=== PATIENT | male | born 1935 | race Caucasian/White ===

== ENCOUNTER 2017-12-22 02:10 | Emergency (ER) | payer OTHER ==
--- OUTSIDE RECORDS SUMMARY | 2017-12-22 02:11 | XMS REPORT | Continuity of Care Document ---
:1935 Author Organization Interface Problems Problem Status Onset Date Classification Date Comments Source Reported Medications Medication Details Route Status Patient Ordering Order Source Instructions Provider Date Allergies, Adverse Reactions, Alerts Substance Category Reaction Severity Reaction Status Date Comments Source type Reported Immunizations Immunization Date Given Site Status Last Updated Comments Source Results Order Results Value Reference Date Interpretation Comments Source Name Range Vital Signs Vital Sign Value Date Comments Source Encounters Location Location Encounter Encounter Reason Attending ADM DC Status Source Details Type Number For Provider Date Date Visit Outpatient [id number] [facility] 11/[address] Outpatient [id number] [facility] 12/19 [place] [address] [place] Procedures Procedure Code Date Perfomer Comments Source
[2017-12-22] MEDS ORDERED: PIPER/TAZO/NS 3.375gm 3.375 GM/100 ML BAG ONE (02:31)
[2017-12-22] MEDS ORDERED: NA CHLORIDE 0.9% 1,000 ML ONE ×2 (02:31→07:05)
[2017-12-22 02:32] LABS: Arterial Blood Carboxyhemoglob 1.2 % (0-1.5); Blood Gas Oxyhemoglobin 90.7 % (94-97); Blood O2 Saturation 92.7 % (92-98.5)
[2017-12-22 02:36] LABS: Urine Blood TRACE (NEG); Urine Glucose NEGATIVE (NEG); Urine Protein 1+ (NEG)
[2017-12-22 02:43] LABS: Absolute Lymphocytes (CBC) 0.7 K/uL (0.7-4.9); Absolute Monocytes 0.2 K/uL (0.1-1.3); Absolute Neutrophil 3.8 K/uL (1.8-8.0); Basophils % 0.3 % (0-1.3); Hematocrit 36.8 % (39.6-49.0); Lymphocytes % 14.4 % (15.3-44.8); MCH 33.6 pg (27.0-35.0); MCV 93.4 fL (80-100); MPV 9.7 fL (7.6-11.3); Monocytes % 3.7 % (3.3-12.3); RBC Red Blood Cell Count 3.94 M/uL (4.33-5.43)
[2017-12-22 03:00] LABS: Protime INR 1.31
[2017-12-22 03:05] LABS: Albumin 2.6 g/dL (3.4-5.0); Bilirubin Direct 0.4 mg/dL (0-0.2); Potassium 3.6 mmol/L (3.5-5.1); Protein, Total 5.8 g/dL (6.4-8.2); Troponin (Emerg Dept Use Only) 0.07 ng/mL (0.0-0.045)
[2017-12-22 03:20] LABS: Blood Morphology Comment NOT SEEN (NOT SEEN); Platelet Estimate DECR; Urine White Blood Cell Casts OK
[2017-12-22] MEDS ORDERED: NA CHLORIDE 0.9% 500 ML ONE (03:21)
--- NOTE | 2017-12-22 06:36 | ER ---
Nurse's Notes [facility] Name: Xu Fulton Age: 82 yrs Sex: Male : 1935 Arrival Date: 12/22/2017 Time: 02:10 Bed 2 Private MD: Diagnosis: Severe sepsis without septic shock Presentation: 12/22 02:19 Presenting complaint: EMS states: Called out for fever and chills. Pt was lethargic and tl2 confused. Pt was hypotensive and had temperature of 106 axillary. Given 1 gram Tylenol and Liter of NS en route. Pt received stem cell injections in his neck on Sunday and started to feel sick on . Transition of care: patient was not received from another setting of care. Onset of symptoms was December 20, 2017. Risk Assessment: Do you want to hurt yourself or someone else? Patient reports no desire to harm self or others. Initial Sepsis Screen: Does the patient meet any 2 criteria? Yes Does the patient have a suspected source of infection? No. Patient's initial sepsis screen is negative. Care prior to arrival: Medication(s) given: Normal saline infusion, 1000 mL, Tylenol, 1000 mg, IV initiated. 18 GA, in the right antecubital area. 02:19 Method Of Arrival: EMS: [facility] tl2 02:19 Acuity: TEO 2 tl2 Triage Assessment: 02:24 General: Appears uncomfortable, Behavior is agitated, restless. Pain: Denies pain. tl2 Neuro: Level of Consciousness is awake, confused, lethargic, Oriented to person. Cardiovascular: Rhythm is sinus tachycardia. Respiratory: Airway is patent Respiratory effort is even, unlabored, Respiratory pattern is regular, symmetrical, Breath sounds are clear bilaterally. GI: No signs and/or symptoms were reported involving the gastrointestinal system. : Urine is clear, matt colored. Derm: Skin is clammy, Skin is normal, Skin temperature is hot. Historical: - Allergies: 02:24 Unable to obtain; tl2 - Home Meds: 02:24 aspirin 81 mg Oral TbEC 1 tab once daily [Active]; tamsulosin 0.4 mg Oral cp24 1 cap tl2 once daily [Active]; Tylenol #3 Oral [Active]; Methylprednisolone Oral [Active]; tizanidine oral oral [Active]; - PMHx: 02:24 BPH; GERD; Myocardial infarction; tl2 - Immunization history:: Adult Immunizations up to date. - Social history:: Smoking status: unknown. - Ebola Screening: : No symptoms or risks identified at this time. Screenin:28 Abuse screen: Denies threats or abuse. Nutritional screening: No deficits noted. tl2 Tuberculosis screening: No symptoms or risk factors identified. Fall Risk IV access (20 points). Gait- Weak (10 pts.). Mental Status- Overestimates/Forgets Limitations (15 pts.). Assessment: 02:52 General: see triage assessment. tl2 03:13 Reassessment: Patient appears in no apparent distress at this time. Patient and/or tl2 family updated on plan of care and expected duration. Pain level reassessed. Pt is becoming more alert. at bedside. Neuro: Level of Consciousness is awake, alert, Oriented to person, place, time, Speech is normal. 03:59 Reassessment: Patient appears in no apparent distress at this time. Patient and/or tl2 family updated on plan of care and expected duration. Pain level reassessed. Patient is alert, oriented x 3, equal unlabored respirations, skin warm/dry/pink. Pt out to CT Patient states feeling better. 07:12 Reassessment: Attempted to call report to receiving nurse but was told to wait until tl2 after shift change. 07:22 General: Appears in no apparent distress. comfortable, Behavior is calm, cooperative, ch appropriate for age. Pain: Denies pain. Neuro: Level of Consciousness is awake, alert, obeys commands, Oriented to person, place, time, situation, Anhydrous Ammonia Production Supervisor are equal bilaterally Moves all extremities. Speech is normal, Facial symmetry appears normal, Facial symmetry: tongue is midline, Pupils are PERRLA. Cardiovascular: Denies chest pain, shortness of breath, Rhythm is sinus rhythm. Respiratory: Airway is patent Respiratory effort is even, unlabored, Breath sounds are clear bilaterally. GI: No signs and/or symptoms were reported involving the gastrointestinal system. Abdomen is round non-distended, Bowel sounds present X 4 quads. Abd is soft and non tender X 4 quads. Derm: Skin is pink, warm \T\ dry. 07:22 Reassessment: attempting to call report now. 08:17 Reassessment: Patient appears in no apparent distress at this time. Patient and/or ch family updated on plan of care and expected duration. Pain level reassessed. Patient is alert, oriented x 3, equal unlabored respirations, skin warm/dry/pink. report given at 0735. EMS contacted at 0740. Still awaiting EMS arrival for pt transport. pt and family updated, no s/s of distress. 09:15 Reassessment: Patient appears in no apparent distress at this time. No changes from ch previously documented assessment. Patient and/or family updated on plan of care and expected duration. Pain level reassessed. Patient is alert, oriented x 3, equal unlabored respirations, skin warm/dry/pink. Vital Signs: 02:24 BP 109 / 51; Pulse 111; Resp 22; Temp 104.8(C); Pulse Ox 93% on 2 lpm NC; Weight 77.11 tl2 kg; Height 5 ft. 7 in. (170.18 cm); 03:13 BP 126 / 55; Pulse 91; Resp 24; Temp 102.3(C); Pulse Ox 97% on 2 lpm NC; tl2 03:37 BP 117 / 50; Pulse 84; Resp 23; Temp 102.1(C); Pulse Ox 97% on 2 lpm NC; tl2 03:58 BP 112 / 49; Pulse 88; Resp 22; Temp 101.9; Pulse Ox 97% on 2 lpm NC; tl2 04:39 BP 104 / 54; Pulse 88; Resp 17; Temp 100.5(C); Pulse Ox 95% on 2 lpm NC; tl2 05:28 BP 102 / 59; Pulse 86; Resp 19; Temp 99.7(C); Pulse Ox 96% on 2 lpm NC; tl2 06:35 BP 107 / 58; Pulse 90; Resp 17; Temp 98.9(C); Pulse Ox 97% on 2 lpm NC; tl2 07:22 BP 126 / 61; Pulse 80; Resp 18; Temp 98.8; Pulse Ox 96% on R/A; Pain 0/10; ch 08:17 BP 110 / 56; Pulse 78; Resp 18; Temp 98.8; Pulse Ox 100% on R/A; Pain 0/10; ch 09:15 BP 116 / 62; Pulse 90; Resp 16; Temp 98.5; Pulse Ox 99% on R/A; Pain 0/10; ch 02:24 Body Mass Index 26.63 (77.11 kg, 170.18 cm) tl2 ED Course: 02:10 Patient arrived in ED. ds1 02:17 Gerardo Ramirez MD is Attending Physician. gs 02:21 Triage completed. tl2 02:24 Arm band placed on right wrist. tl2 02:28 Patient has correct armband on for positive identification. Placed in gown. Bed in low tl2 position. Call light in reach. Side rails up X2. 02:28 Roberto cath inserted, using sterile technique, 16 Fr., by ED staff, balloon inflated, to tl2 gravity drainage, urine specimen collected. returned matt urine. Patient tolerated well. Maintain EMS IV. Dressing intact. Good blood return noted. Site clean \T\ dry. Gauge \T\ site: 18 g R AC. Inserted saline lock: 18 gauge in right forearm, using aseptic technique. Blood collected. Oxygen administration via nasal cannula \T\ 2L/min. Thermoregulation: cooling blanket applied. 02:[address] via stretcher. kw1 02:42 X-ray completed. Portable x-ray completed in exam room. Patient tolerated procedure bb2 well. 02:43 Chest Single View XRAY In Process Unspecified. EDMS 02:52 Azul Nation RN is Primary Nurse. tl2 03:09 CT completed. Patient tolerated procedure well. Patient moved back from CT. kw1 03:12 CT Head Brain wo Cont In Process Unspecified. EDMS 03:14 Notified ED physician of a critical lab result(s). lactate 3.1. fc 04:[address] via stretcher. kw1 04:39 CT Chest Wo Con In Process Unspecified. EDMS 04:39 CT completed. Patient tolerated procedure well. Patient moved back from CT. kw1 04:39 Flu Sent. tl2 06:54 Primary Nurse role handed off by Azul Nation, OVIDIO ch 06:54 Ramonita Nation, OVIDIO is Primary Nurse. ch 07:12 Report given to OVIDIO Shipman. tl2 07:22 No apparent distress. Resting quietly. ch 07:22 monitoring specialist on. Pulse ox on. NIBP on. Pillow given. ch 07:22 No provider procedures requiring assistance completed. Patient transferred, IV remains ch in place. Administered Medications: 02:31 Drug: NS 0.9% 1000 ml Route: IV; Rate: 1 bolus; Site: right forearm; tl2 03:58 Follow up: IV Status: Completed infusion; IV Intake: 1000ml tl2 02:31 Drug: Zosyn 3.375 grams Route: IVPB; Infused Over: 60 mins; Site: right forearm; tl2 03:58 Follow up: IV Status: Completed infusion tl2 03:21 Drug: NS 0.9% 500 ml Route: IV; Rate: bolus; Site: right antecubital; tl2 03:58 Follow up: IV Status: Completed infusion; IV Intake: 500ml tl2 07:10 Drug: vancoMYCIN 1 grams Route: IVPB; Infused Over: 2 hrs; Site: right forearm; 07:26 Follow up: IV Status: Infusion continued upon transfer 07:10 Drug: NS 0.9% 1000 ml Route: IV; Rate: 125 ml/hr; Site: right antecubital; 07:26 Follow up: IV Status: Infusion continued upon transfer Point of Care Testing: Blood Glucose: 02:46 Blood Glucose: 123 mg/dL; oe Ranges: Intake: 03:58 IV: 500ml; Total: 500ml. tl2 03:58 IV: 1000ml; Total: 1500ml. tl2 Outcome: 06:35 ER care complete, transfer ordered by . 09:15 Transferred by ground EMS to [facility], Transfer form completed. X-rays sent w/ patient. 09:15 Condition: stable 09:15 Instructed on the need for transfer. 09:16 Patient left the ED. Signatures: Dispatcher [employer] EDMS Ramonita Nation, VOIDIO NOLAN Gabriella Strauss RN OVIDIO Fernanda Blackwell ds1 Azul Nation RN RN tl2 Damien Castañeda oe Gerardo Ramirez MD MD Sundeep Fuentes RN RN Cindy Gonzalez kw1 Miryam Murphy2 Corrections: (The following items were deleted from the chart) 04:40 03:37 BP 117 / 50; Pulse 84bpm; Resp 23bpm; Pulse Ox 97% RA; Temp 102.1F Catheter; bp tl2 04:40 03:58 BP 112 / 49; Pulse 88bpm; Resp 22bpm; Pulse Ox 97% RA; Temp 101.9F; tl2 tl2
--- NOTE | 2017-12-22 06:36 | EDPHYS ---
Physician Documentation [facility] Name: Xu Fulton Age: 82 yrs Sex: Male : 1935 Arrival Date: 12/22/2017 Time: 02:10 Bed 2 Private MD: ED Physician Gerardo Ramirez HPI: 12/22 06:17 This 82 yrs old Male presents to ER via EMS with complaints of Fever, Altered gs Mental Status. 06:17 Onset: The symptoms/episode began/occurred acutely, just prior to arrival. Modifying gs factors: there are no obvious modifying factors. Associated signs and symptoms: Pertinent positives: backache. Severity of symptoms: At their worst the symptoms were incapacitating in the emergency department the symptoms are unchanged. The patient has not experienced similar symptoms in the past. The patient has been recently seen by a physician: stem cell injection IV, 2-3 weeks ago then last week had stem cell injections in neck. about 2 days ago had increased pain in his neck, severe didn't check for fever per came in today by ems was hypotensive at home bp improved with fluid,. Historical: - Allergies: 02:24 Unable to obtain; tl2 - Home Meds: 02:24 aspirin 81 mg Oral TbEC 1 tab once daily [Active]; tamsulosin 0.4 mg Oral cp24 1 cap tl2 once daily [Active]; Tylenol #3 Oral [Active]; Methylprednisolone Oral [Active]; tizanidine oral oral [Active]; - PMHx: 02:24 BPH; GERD; Myocardial infarction; tl2 - Immunization history:: Adult Immunizations up to date. - Social history:: Smoking status: unknown. - Ebola Screening: : No symptoms or risks identified at this time. ROS: 06:17 Unable to obtain ROS due to patient distress. gs Exam: 06:17 Head/Face: Normocephalic, atraumatic. Eyes: Pupils equal round and reactive to light, gs extra-ocular motions intact. Lids and lashes normal. Conjunctiva and sclera are non-icteric and not injected. Cornea within normal limits. Periorbital areas with no swelling, redness, or edema. ENT: Nares patent. No nasal discharge, no septal abnormalities noted. Tympanic membranes are normal and external auditory canals are clear. Oropharynx with no redness, swelling, or masses, exudates, or evidence of obstruction, uvula midline. Mucous membranes moist. Neck: Trachea midline, no thyromegaly or masses palpated, and no cervical lymphadenopathy. Supple, full range of motion without nuchal rigidity, or vertebral point tenderness. No Meningismus. Chest/axilla: Normal chest wall appearance and motion. Nontender with no deformity. No lesions are appreciated. 06:17 Abdomen/GI: Soft, non-tender, with normal bowel sounds. No distension or tympany. No guarding or rebound. No evidence of tenderness throughout. Back: No spinal tenderness. No costovertebral tenderness. Full range of motion. Skin: Warm, dry with normal turgor. Normal color with no rashes, no lesions, and no evidence of cellulitis. MS/ Extremity: Pulses equal, no cyanosis. Neurovascular intact. Full, normal range of motion. Neuro: Awake and alert, GCS 15, oriented to person, place, time, and situation. Cranial nerves II-XII grossly intact. Motor strength 5/5 in all extremities. Sensory grossly intact. Cerebellar exam normal. Normal gait. 06:17 Constitutional: The patient appears lethargic, in obvious distress, severely distressed. 06:17 Cardiovascular: Rate: tachycardic, Rhythm: regular, Pulses: no pulse deficits are appreciated, Heart sounds: normal. 06:17 ECG was reviewed by the Attending Physician. 06:17 Respiratory: the patient does not display signs of respiratory distress, Respirations: tachypnea, Breath sounds: are clear throughout. Vital Signs: 02:24 BP 109 / 51; Pulse 111; Resp 22; Temp 104.8(C); Pulse Ox 93% on 2 lpm NC; Weight 77.11 tl2 kg; Height 5 ft. 7 in. (170.18 cm); 03:13 BP 126 / 55; Pulse 91; Resp 24; Temp 102.3(C); Pulse Ox 97% on 2 lpm NC; tl2 03:37 BP 117 / 50; Pulse 84; Resp 23; Temp 102.1(C); Pulse Ox 97% on 2 lpm NC; tl2 03:58 BP 112 / 49; Pulse 88; Resp 22; Temp 101.9; Pulse Ox 97% on 2 lpm NC; tl2 04:39 BP 104 / 54; Pulse 88; Resp 17; Temp 100.5(C); Pulse Ox 95% on 2 lpm NC; tl2 05:28 BP 102 / 59; Pulse 86; Resp 19; Temp 99.7(C); Pulse Ox 96% on 2 lpm NC; tl2 06:35 BP 107 / 58; Pulse 90; Resp 17; Temp 98.9(C); Pulse Ox 97% on 2 lpm NC; tl2 07:22 BP 126 / 61; Pulse 80; Resp 18; Temp 98.8; Pulse Ox 96% on R/A; Pain 0/10; ch 08:17 BP 110 / 56; Pulse 78; Resp 18; Temp 98.8; Pulse Ox 100% on R/A; Pain 0/10; ch 09:15 BP 116 / 62; Pulse 90; Resp 16; Temp 98.5; Pulse Ox 99% on R/A; Pain 0/10; ch 02:24 Body Mass Index 26.63 (77.11 kg, 170.18 cm) tl2 MDM: 02:17 Patient medically screened. 06:17 Differential diagnosis: pneumonia UTI, meningitis, sepsis septic shock, epidural gs abscess. Data reviewed: vital signs, nurses notes. Response to treatment: the patient's symptoms have markedly improved after treatment, awake alert x 3 , conversive complaining of neck doubt meningitis as dramatic improvement in mental status, will transfer mri spine, neuro consult, chi doc wants repeat lactate. 12/22 02:20 Order name: Basic Metabolic Panel; Complete Time: 03:11 12/22 02:20 Order name: Blood Culture Adult (2) 12/22 02:20 Order name: CBC with Diff; Complete Time: 03:26 12/22 02:20 Order name: CPK; Complete Time: 03:11 12/22 02:20 Order name: Lactate; Complete Time: 03:11 12/22 02:20 Order name: LFT's; Complete Time: 03:11 12/22 02:20 Order name: Lipase; Complete Time: 03:11 12/22 02:20 Order name: Procalcitonin; Complete Time: 03:26 12/22 02:20 Order name: Protime (+inr); Complete Time: 03:11 12/22 02:20 Order name: Troponin (emerg Dept Use Only); Complete Time: 03:11 12/22 02:20 Order name: ABG; Complete Time: 06:29 gs 12/22 02:26 Order name: Urine Dipstick--Ancillary (enter results); Complete Time: 03:11 ms 12/22 03:20 Order name: CBC Smear Scan; Complete Time: 03:26 EDMS 12/22 04:35 Order name: Flu; Complete Time: 05:10 tl2 12/22 02:20 Order name: Chest Single View XRAY gs 12/22 02:20 Order name: Accucheck; Complete Time: 02:53 gs 12/22 02:20 Order name: Cardiac monitoring; Complete Time: 02:30 gs 12/22 02:20 Order name: EKG - Nurse/Tech; Complete Time: 02:30 gs 12/22 02:20 Order name: IV Saline Lock - Large Bore; Complete Time: 02:30 gs 12/22 02:20 Order name: Labs collected and sent; Complete Time: 02:30 gs 12/22 02:20 Order name: CT Head Brain wo Cont gs 12/22 03:27 Order name: CT Chest Wo Con gs 12/22 06:29 Order name: Lactate Sepsis 2 HR Follow-up; Complete Time: 06:30 EDMS 12/22 07:40 Order name: EKG Electrocardiogram EDMS 12/22 02:20 Order name: O2 Per Protocol; Complete Time: 02:30 gs 12/22 02:20 Order name: O2 Sat Monitoring; Complete Time: 02:30 gs 12/22 02:20 Order name: Urine Dipstick-Ancillary (obtain specimen); Complete Time: 02:30 gs EC:17 Rate is 123 beats/min. Rhythm is regular. [place] interval is normal. QRS interval is gs prolonged. QT interval is normal. T waves are Flattened. Clinical impression: Abnormal EKG without significant change. Interpreted by me. Administered Medications: 02:31 Drug: NS 0.9% 1000 ml Route: IV; Rate: 1 bolus; Site: right forearm; tl2 03:58 Follow up: IV Status: Completed infusion; IV Intake: 1000ml tl2 02:31 Drug: Zosyn 3.375 grams Route: IVPB; Infused Over: 60 mins; Site: right forearm; tl2 03:58 Follow up: IV Status: Completed infusion tl2 03:21 Drug: NS 0.9% 500 ml Route: IV; Rate: bolus; Site: right antecubital; tl2 03:58 Follow up: IV Status: Completed infusion; IV Intake: 500ml tl2 07:10 Drug: vancoMYCIN 1 grams Route: IVPB; Infused Over: 2 hrs; Site: right forearm; 07:26 Follow up: IV Status: Infusion continued upon transfer 07:10 Drug: NS 0.9% 1000 ml Route: IV; Rate: 125 ml/hr; Site: right antecubital; 07:26 Follow up: IV Status: Infusion continued upon transfer Point of Care Testing: Blood Glucose: 02:46 Blood Glucose: 123 mg/dL; oe Ranges: Critical Glucose Levels:Adult <50 mg/dl or >400 mg/dl <40 mg/dl or >180 mg/dl Disposition: 12/22/17 06:35 Transfer ordered to [facility]. Diagnosis is Severe sepsis without septic shock. - Reason for transfer: Higher level of care. - Accepting physician is [employer]. - Condition is Stable. - Problem is new. - Symptoms have improved. Critical care time excluding procedures: 06:35 Critical care time: Bedside Care: 10 minutes, Consultation: 10 minutes, Family gs Intervention: 10 minutes. Total time: 30 minutes Signatures: Dispatcher [employer] Ramonita Morrison RN OVIDIO Azul Nation RN RN 2 Gerardo Ramirez MD MD gs Corrections: (The following items were deleted from the chart) 08:03 06:30 LACTATE+C.LAB.BRZ ordered. [facility]SC 09:16 06:35 12/22/2017 06:35 Transfer ordered to [facility]. Diagnosis is Severe sepsis without septic shock. Reason for transfer: Higher level of care. Accepting physician is [employer]. Condition is Stable. Problem is new. Symptoms have improved. gs
[2017-12-22] MEDS ORDERED: VANCOMYCIN 1 GM/VIAL ONE (07:05)
[2017-12-22] MEDS ORDERED: NA CHLORIDE 0.9% 250 ML ONE (07:05)
--- NOTE | 2017-12-22 08:41 | RAD REPORT ---
EXAM DESCRIPTION: CT - Thorax Wo Con - 12/22/2017 4:39 am CLINICAL HISTORY: sob/fever/abnormal radiologic exam COMPARISON: December chest x-ray TECHNIQUE: Computed axial tomography of the chest was obtained. Contrast was not requested. Prelimin raúl report was generated by virtual radiologic in review prior to this dictation All CT scans are performed using dose optimization technique as appropriate and may include automated exposure control or mA/KV adjustment according to patient size. FINDINGS: The evaluation of mediastinum, alma and vessels is limited secondary to lack of IV contras t administration. The lungs are essentially clear. No mediastinal or hilar lymphadenopathy is seen. A pleural effusion is not present. A pericardial effusion is not noted. Gallstones are present without gallbladder wall thickening IMPRESSION: No significant abnormality is displayed involving the chest
--- NOTE | 2017-12-22 08:42 | RAD REPORT ---
EXAM DESCRIPTION: Sukhjinder Single View12/22/2017 2:45 am CLINICAL HISTORY: Fever COMPARISON: October 2017 FINDINGS: The lungs appear clear of acute infiltrate. The heart is borderline enlarged. Postsurgical changes involve the chest. IMPRESSION: No acute abnormalities displayed
--- NOTE | 2017-12-22 09:49 | RAD REPORT ---
EXAM DESCRIPTION: CT - Head Brain Wo Cont - 12/22/2017 7:17 am CLINICAL HISTORY: Confusion COMPARISON: None. TECHNIQUE: Computed axial tomography of the head was obtained. IV contrast was not requested. Preliminary report was generated by virtual radiologic in review prior to this dictation All CT scans are performed using dose optimization technique as appropriate and may include automated exposure control or mA/KV adjustment according to patient size. FINDINGS: An intracranial bleed is not seen . The ventricles are normal in caliber. No extra-axial fluid collection is noted. Fluid within the sinuses/ mastoids is not seen. IMPRESSION: No acute intracranial abnormality is seen. If patient's symptoms persist MRI of the bra in would be recommended.
--- NOTE | 2017-12-22 12:09 | EKG ---
Test Date: 2017-12-22 Test Time: 02:11:48 Multiple Cut Off Saw Operator: RASHID MEASUREMENT RESULTS: Intervals: Rate: 123 WV: 160 QRSD: 116 QT: 318 QTc: 455 [place]: P: 72 WV: 160 QRS: 27 T: 112 INTERPRETIVE STATEMENTS: Sinus tachycardia Incomplete right bundle branch block ST & T wave abnormality, consider lateral ischemia Abnormal ECG Compared to ECG 04/21/2017 11:48:16 Incomplete right bundle-branch block now present ST (T wave) deviation now present Possible ischemia now present Sinus rhythm no longer present Ventricular premature complex(es) no longer present Electronically Signed On 12-22-17 12:07:18 CDT by Fran Cooper
== END 2017-12-22 09:16 | disposition short-term general hospital (02) ==
LOC: ER 02:10
DX: A41.9 Sepsis, unspecified organism (principal); R65.20 Severe sepsis without septic shock
CPT/HCPCS: 36415; 70450; 71045; 71250; 80048; 80076; 81003; 82550; 82805; 83605 ×2; 83690; 84145; 84484; 85025; 85610; 87040 ×2; 87205 ×4; 87804 ×2; 93005; J2543; J7030 ×2; 51702; 82962; 87077; 87186; 96365; 96367; 99285

== ENCOUNTER 2018-02-05 17:21 | Emergency (ER) | payer OTHER ==
--- OUTSIDE RECORDS SUMMARY | 2018-02-05 17:24 | XMS REPORT | Clinical Summary ---
:1935 Author Organization [facility] Address [address] [place] [address] Care Team Providers Name Role Phone Percy Ruano Primary Care Provider Allergies No Known Allergies Medications Medication Sig Dispensed Refills Start End Date Status Date tamsulosin (FLOMAX) Take 0.4 mg by 0 Active 0.4 mg Cap 24 hr mouth daily. capsule aspirin 81 MG EC Take 1 tablet 0 01/02/20 Active tablet (81 mg total) 8 19 by mouth daily. carvedilol (COREG) Take 1 tablet 60 tablet 2 Active 3.125 MG tablet (3.125 mg 8 total) by mouth 2 (two) times daily. finasteride (PROSCAR) Take 1 tablet 30 tablet 2 Active 5 mg tablet (5 mg total) 8 by mouth daily. TiZANidine (ZANAFLEX) Take 1 capsule 90 capsule 0 Active 4 MG (4 mg total) 8 capsuleIndications: by mouth 3 Muscle Spasm (three) times daily as needed for Muscle spasms. lisinopril Take 1 tablet 30 tablet 2 Active (PRINIVIL,ZESTRIL) 10 (10 mg total) 8 MG tablet by mouth daily. TiZANidine (ZANAFLEX) Take 4 mg by 0 01/01/20 Discontinued 4 MG mouth 3 18 capsuleIndications: (three) times Muscle Spasm daily as needed for Muscle spasms. acetaminophen-codeine Take 1 tablet 0 01/01/20 Discontinued (TYLENOL #3) 300-30 mg by mouth 3 18 per tablet (three) times daily as needed for Pain. methylPREDNISolone Take 4 mg by mouth 4 (four) times daily follow package directions 0 01/01/20 Discontinued (MEDROL DOSEPACK) 4 mg Pt is on his third day of dose pack. . 18 tablet ciprofloxacin HCl Take 1 tablet 66 tablet 0 02/03/20 (CIPRO) 500 MG tablet (500 mg total) 8 18 by mouth every 12 (twelve) hours for 33 days. HYDROcodone-acetaminop Take 1 tablet 120 tablet 0 01/11/20 hen (NORCO 10-325) by mouth every 8 18 10-325 mg per tablet 4 (four) hours as needed for up to 10 days. Max Daily Amount: 6 tablets traMADol (ULTRAM) 50 Take 2 tablets 60 tablet 0 01/11/20 mg tablet (100 mg total) 8 18 by mouth every 6 (six) hours as needed for up to 10 days. Max Daily Amount: 400 mg Active Problems Problem Noted Date Bacteremia due to Enterobacter species 01/29/2018 Neck pain, chronic 12/31/2017 Fever 12/22/2017 BPH (benign prostatic hyperplasia) 12/22/2017 CAD (coronary artery disease) 12/22/2017 GERD (gastroesophageal reflux disease) 12/22/2017 Sepsis 12/22/2017 Altered mental state 12/22/2017 Elevated troponin 12/22/2017 Hypophosphatemia 12/22/2017 NSTEMI (non-ST elevated myocardial infarction) 12/22/2017 Encounters Date Type Specialty Care Team Description 02/05/2018 Hospital Encounter Radiology Chelsea Ford Cellulitis and MD Karri abscess of neck 02/05/2018 Telephone Infectious Al Tanmay, Results Diseases MD Eden 12/22/2017 - Hospital Encounter Cardiology Zach, [place] Fever, unspecified fever cause; 12/31/2017 MD Denia Coronary artery disease involving coronary bypass graft of [place] heart without angina pectoris; Yannick Brush, Elevated troponin; Altered mental status, unspecified altered mental status type; Dave Monroy Infection of cervical spine (HCC); MD Yesenia Cellulitis and abscess of neck; Chelsea Ford Fever chills; MD Karri Severe sepsis (HCC); Bacteremia due to Enterobacter species; Acute encephalopathy; Lactic acid acidosis; Type 2 myocardial infarction (HCC); Coronary artery disease involving [place] coronary artery of [place] heart without angina pectoris; Septicemia due to Enterobacter (HCC); Benign prostatic hyperplasia with urinary retention; Gross hematuria 12/22/2017 Orders Only General Internal Medicine after 02/04/2017 Family History Relation Name Status Comments Father Mother Social History Tobacco Use Types Packs/Day Years Used Date Never Smoker Smokeless Tobacco: Never Used Alcohol Use Drinks/Week oz/Week Comments Yes 1 Glasses of wine 0.6 not weekly; very occassional Sex Assigned at Date Recorded Not on file Job Start Date Occupation Industry Not on file Not on file Not on file Travel History Travel Start Travel End No recent travel history available. Last Filed Vital Signs Vital Sign Reading Time Taken Blood Pressure 144/68 12/31/2017 8:00 AM CDT Pulse 84 12/31/2017 8:00 AM CDT Temperature 36.4 C (97.5 F) 12/31/2017 8:00 AM CDT Respiratory Rate 18 12/31/2017 8:00 AM CDT Oxygen Saturation 99% 12/31/2017 8:00 AM CDT Inhaled Oxygen Concentration - - Weight 73.4 kg (161 lb 12.8 oz) 12/22/2017 10:00 AM CDT Height 172.7 cm (5' 8") 12/22/2017 10:00 AM CDT Body Mass Index 24.6 12/22/2017 10:00 AM CDT Plan of Treatment Not on file Procedures Procedure Name Priority Date/Time Associated Comments Diagnosis MR CERVICAL SPINE W/WO Routine 02/05/2018 12:46 Cellulitis and Results for this CONTRAST PM CDT abscess of neck procedure are in the results section. POCT-CREATININE Routine 02/05/2018 11:37 Results for this AM CDT procedure are in the results section. REPORT OF PROCEDURE - 01/01/2018 1:00 ENDOSCOPY SCAN PM CDT RHYTHM STRIP - SCAN 01/01/2018 1:00 PM CDT POCT-GLUCOSE METER Routine 12/31/2017 8:22 Results for this AM CDT procedure are in the results section. CBC (HEMOGRAM ONLY) Routine 12/31/2017 5:54 Results for this AM CDT procedure are in the results section. CBC (HEMOGRAM ONLY) Routine 12/30/2017 4:14 Results for this AM CDT procedure are in the results section. BASIC METABOLIC PANEL Routine 12/30/2017 4:14 Results for this (7) AM CDT procedure are in the results section. US RENAL COMPLETE Routine 12/29/2017 4:14 Results for this PM CDT procedure are in the results section. CBC (HEMOGRAM ONLY) Routine 12/29/2017 4:42 Results for this AM CDT procedure are in the results section. BASIC METABOLIC PANEL Routine 12/29/2017 4:42 Results for this (7) AM CDT procedure are in the results section. URINALYSIS W/ REFLEX Routine 12/28/2017 6:03 Results for this URINE CULTURE PM CDT procedure are in the results section. BASIC METABOLIC PANEL Routine 12/28/2017 5:16 Results for this (7) AM CDT procedure are in the results section. CBC (HEMOGRAM ONLY) Routine 12/28/2017 5:04 Results for this AM CDT procedure are in the results section. CBC (HEMOGRAM ONLY) Routine 12/27/2017 5:48 Results for this AM CDT procedure are in the results section. BASIC METABOLIC PANEL Routine 12/27/2017 5:48 Results for this (7) AM CDT procedure are in the results section. CBC (HEMOGRAM ONLY) Routine 12/26/2017 5:40 Results for this AM CDT procedure are in the results section. PSA Routine 12/26/2017 5:40 Results for this AM CDT procedure are in the results section. BASIC METABOLIC PANEL Routine 12/26/2017 5:40 Results for this (7) AM CDT procedure are in the results section. BLOOD CULTURE Routine 12/26/2017 5:39 Results for this AM CDT procedure are in the results section. BLOOD CULTURE Routine 12/26/2017 5:38 Results for this AM CDT procedure are in the results section. CBC W/PLT COUNT & AUTO Routine 12/25/2017 5:07 Results for this DIFFERENTIAL AM CDT procedure are in the results section. CBC (HEMOGRAM ONLY) Routine 12/25/2017 5:07 Results for this AM CDT procedure are in the results section. BASIC METABOLIC PANEL Routine 12/25/2017 5:07 Results for this (7) AM CDT procedure are in the results section. CBC W/PLT COUNT & AUTO Routine 12/25/2017 5:07 Results for this DIFFERENTIAL AM CDT procedure are in the results section. APTT Routine 12/24/2017 10:48 Results for this PM CDT procedure are in the results section. APTT Routine 12/24/2017 3:21 Results for this PM CDT procedure are in the results section. APTT Routine 12/24/2017 1:12 Results for this PM CDT procedure are in the results section. OCCULT BLOOD, STOOL Routine 12/24/2017 12:12 Results for this PM CDT procedure are in the results section. BLOOD CULTURE Routine 12/24/2017 5:16 Results for this AM CDT procedure are in the results section. BLOOD CULTURE Routine 12/24/2017 4:53 Results for this AM CDT procedure are in the results section. APTT Routine 12/24/2017 4:36 Results for this AM CDT procedure are in the results section. VANCOMYCIN LEVEL, Timed 12/24/2017 4:36 Results for this TROUGH AM CDT procedure are in the results section. LACTIC ACID, VENOUS, Routine 12/24/2017 4:36 Results for this WHOLE BLOOD AM CDT procedure are in the results section. APTT Routine 12/24/2017 2:02 Results for this AM CDT procedure are in the results section. XR CHEST 1 VIEW Routine 12/23/2017 7:14 Results for this PORTABLE/BEDSIDE PM CDT procedure are in the results section. APTT Routine 12/23/2017 6:39 Results for this PM CDT procedure are in the results section. VANCOMYCIN LEVEL, Timed 12/23/2017 3:19 Results for this TROUGH PM CDT procedure are in the results section. APTT Routine 12/23/2017 12:59 Results for this PM CDT procedure are in the results section. ECHOCARDIOGRAM REPORT - 12/23/2017 12:20 SCAN PM CDT CBC W/PLT COUNT & AUTO Routine 12/23/2017 3:44 Results for this DIFFERENTIAL AM CDT procedure are in the results section. CBC (HEMOGRAM ONLY) Routine 12/23/2017 3:44 Results for this AM CDT procedure are in the results section. LIPID PANEL Routine 12/23/2017 3:44 Results for this AM CDT procedure are in the results section. BASIC METABOLIC PANEL Routine 12/23/2017 3:44 Results for this (7) AM CDT procedure are in the results section. CBC W/PLT COUNT & AUTO Routine 12/23/2017 3:44 Results for this DIFFERENTIAL AM CDT procedure are in the results section. VANCOMYCIN LEVEL, Timed 12/23/2017 3:44 Results for this TROUGH AM CDT procedure are in the results section. APTT Routine 12/23/2017 3:44 Results for this AM CDT procedure are in the results section. PLATELET COUNT Routine 12/23/2017 3:44 Results for this AM CDT procedure are in the results section. TROPONIN I Routine 12/23/2017 3:44 Results for this AM CDT procedure are in the results section. TROPONIN I Routine 12/22/2017 8:12 Results for this PM CDT procedure are in the results section. LIMITED 2D STAT 12/22/2017 6:34 Results for this ECHOCARDIOGRAM PM CDT procedure are in the results section. ECG 12-LEAD Routine 12/22/2017 6:19 PM CDT Procedure Note - Interface, External Ris In - 12/22/2017 6:24 PM CDT Ventricular Rate 87 BPM Atrial Rate 87 BPM P-R Interval 186 ms QRS Duration 112 ms Q-T Interval 362 ms QTC Calculation(Bazett) 435 ms P Bentley 34 degrees R Bentley 67 degrees T Bentley 37 degrees Normal sinus rhythm Possible Left atrial enlargement Incomplete right bundle branch block Borderline ECG When compared with ECG of 22-DEC-2017 12:29, Questionable change in QRS axis ECG 12-LEAD Routine 12/22/2017 6:19 PM CDT MR BRAIN WITHOUT & WITH IV STAT 12/22/2017 5:39 PM CDT Results for this CONTRAST procedure are in the results section. MR CERVICAL SPINE W/WO STAT 12/22/2017 5:39 PM CDT Results for this CONTRAST procedure are in the results section. URINALYSIS W/ REFLEX URINE Routine 12/22/2017 2:29 PM CDT Results for this CULTURE procedure are in the results section. URINE CULTURE Routine 12/22/2017 2:29 PM CDT BLOOD CULTURE STAT 12/22/2017 2:09 PM CDT CBC W/PLT COUNT & AUTO STAT 12/22/2017 1:35 PM CDT Results for this DIFFERENTIAL procedure are in the results section. TROPONIN I Routine 12/22/2017 1:35 PM CDT LACTIC ACID, VENOUS, WHOLE STAT 12/22/2017 1:35 PM CDT Results for this BLOOD procedure are in the results section. B-TYPE NATRIURETIC FACTOR STAT 12/22/2017 1:35 PM CDT Results for this (BNP) procedure are in the results section. PHOSPHORUS STAT 12/22/2017 1:35 PM CDT MAGNESIUM STAT 12/22/2017 1:35 PM CDT PROTHROMBIN TIME/INR STAT 12/22/2017 1:35 PM CDT COMPREHENSIVE METABOLIC STAT 12/22/2017 1:35 PM CDT Results for this PANEL procedure are in the results section. CBC W/PLT COUNT & AUTO STAT 12/22/2017 1:35 PM CDT Results for this DIFFERENTIAL procedure are in the results section. BLOOD CULTURE IDENTIFICATION Routine 12/22/2017 1:35 PM CDT Results for this PANEL procedure are in the results section. BLOOD CULTURE STAT 12/22/2017 1:35 PM CDT ECG 12-LEAD Routine 12/22/2017 12:29 PM CDT Procedure Note - Interface, External Ris In - 12/22/2017 12:33 PM CDT Ventricular Rate 87 BPM Atrial Rate 87 BPM P-R Interval 202 ms QRS Duration 104 ms Q-T Interval 336 ms QTC Calculation(Bazett) 404 ms P Bentley 62 degrees R Bentley -1 degrees T Bentley 65 degrees Normal sinus rhythm Normal ECG No previous ECGs available ECG 12-LEAD STAT 12/22/2017 12:29 PM CDT after 02/04/2017 Results MR cervical spine without & with IV contrast (02/05/2018 12:46 PM CDT)Only the most recent of2 resultswithin the time period is included. Narrative Performed At FINAL REPORT [employer] MRI of the cervical spine pre and postcontrast Comparison:December 22, 2017 Reason for exam: Neck cellulitis, extension two epidural space Discussion: Sagittal and axial multisequence MR imaging of the cervical spine was provided pre and postcontrast. Imaging discussed with Dr. Vora covering for the ordering physician Dr. Islas. Since the previous study, changes of an infection have become worse. The disc spaces C5/6 and C6/7 are substantially worse with regard to disc space narrowing and endplate irregularity. There is now near complete marrow replacement and enhancement involving the vertebral bodies at each level C5-C7. Additionally, the C4/5 disc space has become more thin and irregular indicating infection to involve the disc space. Endplate irregularities of the lower aspect of C4 noted. Infiltrative enhancement is seen within the prevertebral soft tissues from C4 to T1 in keeping with regional cellulitis. There is multifactorial central canal stenosis from C4 to C7 relating to spondylosis but also to enhancing ventral epidural thickening in keeping with probable changes of infection. The cord is moderately flattened at C4/5 and C5/6 but without definitive intramedullary signal alteration. 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 No discrete abscess at this time. There is central canal stenosis as discussed. Signed: Jody Hdz MD Report Verified Date/Time:02/05/2018 15:41:32 Reading Location: [address] Neuro Reading Room Procedure Note Interface, External Ris In - 02/05/2018 3:43 PM CDT FINAL REPORT MRI of the cervical spine pre and postcontrast Comparison: December 22, 2017 Reason for exam: Neck cellulitis, extension two epidural space Discussion: Sagittal and axial multisequence MR imaging of the cervical spine was provided pre and postcontrast. Imaging discussed with Dr. Vora covering for the ordering physician Dr. Islas. Since the previous study, changes of an infection have become worse. The disc spaces C5/6 and C6/7 are substantially worse with regard to disc space narrowing and endplate irregularity. There is now near complete marrow replacement and enhancement involving the vertebral bodies at each level C5-C7. Additionally, the C4/5 disc space has become more thin and irregular indicating infection to involve the disc space. Endplate irregularities of the lower aspect of C4 noted. Infiltrative enhancement is seen within the prevertebral soft tissues from C4 to T1 in keeping with regional cellulitis. There is multifactorial central canal stenosis from C4 to C7 relating to spondylosis but also to enhancing ventral epidural thickening in keeping with probable changes of infection. The cord is moderately flattened at C4/5 and C5/6 but without definitive intramedullary signal alteration. 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 No discrete abscess at this time. There is central canal stenosis as discussed. Signed: Jody Hdz MD Report Verified Date/Time: 02/05/2018 15:41:32 Reading Location: [address] Neuro Reading Room Performing Organization Address City/[facility] Phone Number [facility] POC-Creatinine (02/05/2018 11:37 AM CDT) POC-Creatinine 0.9Comment: TESTED AT 0.6 - 1.3 mg/dL [address] [address] POC-EGFR 81 mL/min/1.73M2 [facility] Specimen Blood Performing Organization Address [facility] [address] [facility] EKG-SCANNED (01/01/2018 1:00 PM CDT) Narrative Performed At RHYTHM STRIP - SCAN (01/01/2018 1:00 PM CDT) Narrative Performed At POC-Glucose meter (12/31/2017 8:22 AM CDT) POC-Glucose Meter 158 (H)Comment: TESTED AT 70 - 110 mg/dL [address] [address] Specimen Blood Performing Organization Address [facility] [place] Phone Number [address] [address] [phone] [facility] CBC (hemogram only) (12/31/2017 5:54 AM CDT)Only the most recent of8 resultswithin the time period is included. WBC 10.0 3.5 - 10.5 K/L [facility] RBC 4.33 (L) 4.63 - 6.08 M/L [facility] Hemoglobin 13.7 13.7 - 17.5 GM/DL [facility] Hematocrit 39.6 (L) 40.1 - 51.0 % [facility] MCV 91.5 79.0 - 92.2 fL [facility] MCH 31.6 25.7 - 32.2 pg [facility] MCHC 34.6 32.3 - 36.5 GM/DL [facility] RDW 12.8 11.6 - 14.4 % [facility] Platelets 330 150 - 450 K/CU MM [facility] MPV 9.8 9.4 - 12.4 fL [facility] nRBC 0 0 - 0 /100 WBC [facility] Specimen Blood Performing Organization Address City/State/Zipcode Phone Number [facility] [address] [place] [address] CENTER Basic Metabolic Panel (12/30/2017 4:14 AM CDT)Only the most recent of7 resultswithin the time period is included. Sodium 131 (L) 136 - 145 meq/L [facility] Potassium 5.1 3.5 - 5.1 meq/L [facility] Chloride 100 98 - 107 meq/L [facility] CO2 25 22 - 29 meq/L [facility] BUN 18 7 - 21 mg/dL [facility] Creatinine 0.80 0.57 - 1.25 mg/dL [facility] Glucose 117 (H) 70 - 105 mg/dL [facility] Calcium 9.3 8.4 - 10.2 mg/dL [facility] EGFR Comment: INSUFFICIENT CLINICAL mL/min/1.73 sq m [facility] DATA TO CALCULATE [facility] GFR. Specimen Blood Performing Organization Address City/State/Zipcode Phone Number [facility] [address] [place] [address] CENTER US renal complete (12/29/2017 4:14 PM CDT) Narrative Performed At FINAL REPORT [employer] RENAL ULTRASOUND HISTORY: Hematuria TECHNIQUE: Real-time ultrasound of the right kidney and left renal fossa was performed. FINDINGS: The right kidney is normal in size, contour, and echogenicity. The right kidney measures 14.2 cm in length with a renal cortical thickness of 1.3 cm. No right renal mass lesion. No right hydronephrosis or calculi are seen. 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 The bladder is unremarkable. Limited Doppler evaluation of the right renal artery and vein demonstrated patency. IMPRESSION: 1. No ultrasound abnormalities are visualized in the right kidney. 2. Left kidney absent. Signed: Rut Liu MD Report Verified Date/Time:12/29/2017 16:24:31 Reading Location: [address] Transitional Reading Room Procedure Note Interface, External Ris In - 12/29/2017 4:45 PM CDT FINAL REPORT RENAL ULTRASOUND HISTORY: Hematuria TECHNIQUE: Real-time ultrasound of the right kidney and left renal fossa was performed. FINDINGS: The right kidney is normal in size, contour, and echogenicity. The right kidney measures 14.2 cm in length with a renal cortical thickness of 1.3 cm. No right renal mass lesion. No right hydronephrosis or calculi are seen. 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 The bladder is unremarkable. Limited Doppler evaluation of the right renal artery and vein demonstrated patency. IMPRESSION: 1. No ultrasound abnormalities are visualized in the right kidney. 2. Left kidney absent. Signed: Rut Liu MD Report Verified Date/Time: 12/29/2017 16:24:31 Reading Location: [facility] C0[facility] Transitional Reading Room Performing Organization Address City/[facility]/Zipcode Phone Number [employer] Urinalysis w/Microscopic + Reflex to Culture (12/28/2017 6:03 PM CDT)Only the most recent of2 resultswithin the time period is included. Color, UA Yellow [facility] Clarity, UA Clear [facility] Specific Challenge, UA 1.012 1.001 - 1.035 [facility] pH, UA 6.5 5.0 - 8.0 [facility] Protein, UA Negative Negative [facility] Glucose, UA Negative Negative [facility] Ketones, UA Negative Negative [facility] Bilirubin, UA Negative Negative [facility] Blood, UA Moderate (A) Negative [facility] Nitrite, UA Negative Negative [facility] Leukocytes, UA Negative Negative [facility] Urobilinogen, UA 2.0 (H) 0.2 - 1.0 mg/dL [facility] RBC, UA 31 /HPF [facility] WBC, UA 1 /HPF [facility] Mucus Rare [facility] Specimen Source [facility] Specimen Urine Performing Organization Address City/[facility]/Zipcode Phone Number [facility] [address] [place] [address] [facility] PSA (12/26/2017 5:40 AM CDT) PSA 5.5 (H) 0.0 - 4.0 ng/mL [facility] Specimen Blood - Arm, Right Performing Organization Address City/[facility]/Zipcode Phone Number [facility] [address] [place] [address] [facility] Blood culture (12/26/2017 5:39 AM CDT)Only the most recent of6 resultswithin the time period is included. Result No growth in 5 days [facility] Specimen Blood - Arm, Left Performing Organization Address City/State/Zipcode Phone Number [facility] [address] [place] [address] CENTER CBC with platelet count + automated diff (12/25/2017 5:07 AM CDT)Only the most recent of3 resultswithin the time period is included. WBC 7.1 3.5 - 10.5 K/L [facility] RBC 3.52 (L) 4.63 - 6.08 M/L [facility] Hemoglobin 11.1 (L) 13.7 - 17.5 GM/DL [facility] Hematocrit 31.2 (L) 40.1 - 51.0 % [facility] MCV 88.6 79.0 - 92.2 fL [facility] MCH 31.5 25.7 - 32.2 pg [facility] MCHC 35.6 32.3 - 36.5 GM/DL [facility] RDW 12.5 11.6 - 14.4 % [facility] Platelets 66 (L) 150 - 450 K/CU MM [facility] MPV 12.0 9.4 - 12.4 fL [facility] nRBC 0 0 - 0 /100 WBC [facility] % Neutros 70 % [facility] % Lymphs 16 % [facility] % Monos 13 % [facility] % Eos 0 % [facility] % Baso 0 % [facility] # Neutros 4.96 1.78 - 5.38 K/L [facility] # Lymphs 1.16 (L) 1.32 - 3.57 K/L [facility] # Monos 0.92 (H) 0.30 - 0.82 K/L [facility] # Eos 0.03 (L) 0.04 - 0.54 K/L [facility] # Baso 0.02 0.01 - 0.08 K/L [facility] Immature Granulocytes-Relative 1 0 - 1 % [facility] Specimen Blood - Arm, Right Performing Organization Address [facility] [place] Phone Number [address] [address] CENTER aPTT (12/24/2017 10:48 PM CDT)Only the most recent of8 resultswithin the time period is included. PTT 51.4 (H) 22.5 - 36.0 seconds [facility] Specimen Blood - Arm, Left Performing Organization Address [facility] [place] Phone Number [address] [address] [phone] [facility] Occult blood, stool (12/24/2017 12:12 PM CDT) Occult blood Positive (A) Negative [facility] Specimen Stool - Stool Performing Organization Address [facility] [place] Phone [place] [address] [address] [place] Lactic acid, venous, whole blood (12/24/2017 4:36 AM CDT)Only the most recent of2 resultswithin the time period is included. Lactate, Venous 1.1Comment: Specimen 0.5 - 2.2 mmol/L [facility] slightly hemolyzed [facility] Specimen Blood Narrative Performed At [facility] Effective 08/11/2015: Units/Reference Range Change New: 0.5-2.2 mmol/LPrevious: 5-20 mg/dL Performing Organization Address [facility] [place] Phone Number [address] [address] [phone] [place] Vancomycin level, trough (12/24/2017 4:36 AM CDT)Only the most recent of3 resultswithin the time period is included. Vancomycin Tr 7.7 (L) 10.0 - 20.0 ug/mL [facility] Specimen Blood Performing Organization Address City/State/Zipcode Phone Number [facility] [address] [place] [address] [phone] [place] XR chest 1 view portable / bedside (12/23/2017 7:14 PM CDT) Narrative Performed At FINAL REPORT [employer] Chest one view. Clinical history: dyspnea Comparison: None. Technique: A single frontal view of the chest was obtained. Findings: The patient is status post median sternotomy. There are surgical clips in mediastinum. The aorta is atherosclerotic and uncoiled. The heart is normal in size. There is no pulmonary edema, focal pulmonary consolidation or definite pleural effusion. Signed: Virgil Molina MD Report Verified Date/Time:12/23/2017 22:07:46 Reading Location: [address] Body Reading Room Procedure Note Interface, External Ris In - 12/23/2017 10:09 PM CDT FINAL REPORT Chest one view. Clinical history: dyspnea Comparison: None. Technique: A single frontal view of the chest was obtained. Findings: The patient is status post median sternotomy. There are surgical clips in mediastinum. The aorta is atherosclerotic and uncoiled. The heart is normal in size. There is no pulmonary edema, focal pulmonary consolidation or definite pleural effusion. Signed: Virgil Molina MD Report Verified Date/Time: 12/23/2017 22:07:46 Reading Location: [facility] C[facility] CT Body Reading Room Performing Organization Address City/State/Zipcode Phone Number GE [facility]IS ECHOCARDIOGRAM REPORT - SCAN (12/23/2017 12:20 PM CDT) Narrative Performed At Troponin I (12/23/2017 3:44 AM CDT)Only the most recent of3 resultswithin the time period is included. Troponin I 6.35 (HH) 0.00 - 0.03 ng/mL [facility] Specimen Blood Narrative Performed At [facility] Troponin I (TnI) levels must be interpreted in the context of the presenting symptoms and the clinical findings. Elevated TnI levels indicate myocardial damage, but are not specific for ischemic heart disease. Elevated TnI levels are seen in patients with other cardiac conditions (including myocarditis and congestive heart failure), and slight TnI elevations occur in patients with other conditions, including sepsis, renal failure, acidosis, acute neurological disease, and persistent tachyarrhythmia. Performing Organization Address City/[facility] Phone Number [address] [address] C[place] Platelet count (12/23/2017 3:44 AM CDT) Platelets 32 (L) 150 - 450 K/CU MM [facility] Specimen Blood Performing Organization Address [facility] Phone Number [address] [address] C[place] Lipid panel (12/23/2017 3:44 AM CDT) Triglycerides 98 mg/dL [facility] Cholesterol 91 mg/dL [facility] HDL 32 mg/dL [facility] LDL Calculated 39 mg/dL [facility] Specimen Blood Narrative Performed At [facility] Triglyceride Reference Range: Low Risk <150 [id number] High Risk 200-499 Very High Risk>=500 Cholesterol Reference Range: Low Risk <200 Defbemhqet205-699 High Risk>240 HDL Cholesterol Reference Range: Low Risk >=60 High Risk <40 LDL Cholesterol Reference Range: Optimal<100 Near Wnqazls323-665 Ixenpdwpsm014-156 Olmc677-843 Very High >=190 Performing Organization Address [facility] Phone Number [address] [address] [phone] CENTER Limited 2D Echocardiogram (12/22/2017 6:34 PM CDT) Ejection Fraction [facility] Narrative Performed At Transthoracic Echocardiography Report (TTE) [facility] Demographics Patient PREMA White Date of Study12/22/2017 Gender Male Visit [id number] Race Unknown [id number] Number Date of 1935 Referring PhysicianLorie Serrano MD Age 82 year(s) SonographerOscar ROSA Benavides Interpreting Physician MoniqueMD FellowLorie Bains MD Procedure Type of Study TTE procedure:LIMITED 2D ECHOCARDIOGRAM (STAT) Indications:Eval EF Function. Clinical History CABGX2 1997, CAD, GERD, WAQAR HGB 14.4 HCT 41.1 % INDICATION: EXAM FOR WALL MOTION, SYSTOLIC FUNCTION Height: 68 inches Weight: 73.03 kg (161 lbs) BSA: 1.86 m^2 BMI: 24.48 kg/m^2 HR: 89 bpm BP: 114/60 mmHg Summary 1. The left ventricle is chamber size (by vol index) is mildly enlarged (male - LVED 75-89ml/m2). LVEF by Hickey's method of disk assessment is mildly reduced (45-49%). The following segment(s) appear hypokinetic: inferior and inferoseptum . Anterolateral and inferolateral segments mildly hypokinetic. 2. The right ventricular chamber size and systolic function are within normal limits The right ventricular chamber size and systolic function are within normal limits. Signature Findings Rhythm/BPRegular sinus rhythm during the exam. Left Ventricle The LV endocardium is partially visualized. Th e left ventricle is chamber size (by vol index) is mildly enlarged (male - LVED 75-89ml/m2). No rmal LV wall thickness. LV EF by Hickey's method of disk assessment is mi ldly reduced (45-49%) . Th e following segment(s) appear hypokinetic: in ferior and inferoseptum . Left AtriumLA size is moderately enlarged (42-48 ml/m2) . Right VentricleThe right ventricular chamber size and systolic fu nction are within normal limits. Right Atrium RA size is normal. Aortic Valve Normal AoV structure and function by available vi ews. Mitral Valve Normal MV structure and function by available vi ews. Tricuspid ValveTV structure is normal. Pulmonic Valve Normal PV structure by limited views. AortaAortic root size (SInus of Valsalva diameter) is no rmal . PericardiumNo significant pericardial effusion is visualized. IVC/SVC/PA/PV/PleuralThe estimated RA pressure by IVC dynamics 5-10mmHg . Chambers/Structures Left Atrium LA Volume: 88.3 mlLA Area: 25.55 cm^2 LA Vol. Index: 47 ml/m^2 Left Ventricle LVIDd: 5.63 cm LV Septum Diastolic: 1.01 cm LV PW Diastolic: 1.04 cm LVEDV Hickey's:163.66 ml LVESV Hickey's:86.8 ml LVEF Hickey's: 47 %L VEDVI: 88 ml/m^2 LVESVI: 47 ml/m^2 LVOT Diameter: 2.09 cm Aorta Ao Root S of Moriah.: 3.44 cm Doppler/Quantitative Measurements LVOT LVOT Diameter: 2.09 cm LVOT Area: 3.43 cm^2 Procedure Note Interface, External Ris In - 12/23/2017 11:40 AM CDT Transthoracic Echocardiography Report (TTE) Demographics Patient Name PREMA FULTON Date of Study 12/22/2017 Gender Male Visit Number [id number] Race Unknown Room Number 2454 Number Date of 1935 Referring Physician Lorie Serrano MD Age 82 year(s) Outpatient Services Director Dmitry Benavides [facility] Interpreting Belgica Gray, Physician Fellow Lorie Bains MD Procedure Type of Study TTE procedure:LIMITED 2D ECHOCARDIOGRAM (STAT) Indications:Eval EF Function. Clinical History CABGX2 1997, CAD, GERD, WAQAR HGB 14.4 HCT 41.1 % INDICATION: EXAM FOR WALL MOTION, SYSTOLIC FUNCTION Height: 68 inches Weight: 73.03 kg (161 lbs) BSA: 1.86 m^2 BMI: 24.48 kg/m^2 HR: 89 bpm BP: 114/60 mmHg Summary 1. The left ventricle is chamber size (by vol index) is mildly enlarged (male - LVED 75-89ml/m2). LVEF by Hickey's method of disk assessment is mildly reduced (45-49%). The following segment(s) appear hypokinetic: inferior and inferoseptum . Anterolateral and inferolateral segments mildly hypokinetic. 2. The right ventricular chamber size and systolic function are within normal limits The right ventricular chamber size and systolic function are within normal limits. Signature Findings Rhythm/BP Regular sinus rhythm during the exam. Left Ventricle The LV endocardium is partially visualized. The left ventricle is chamber size (by vol index) is mildly enlarged (male - LVED 75-89ml/m2). Normal LV wall thickness. LVEF by Hickey's method of disk assessment is mildly reduced (45-49%) . The following segment(s) appear hypokinetic: inferior and inferoseptum . Left Atrium LA size is moderately enlarged (42-48 ml/m2) . Right Ventricle The right ventricular chamber size and systolic function are within normal limits. Right Atrium RA size is normal. Aortic Valve Normal AoV structure and function by available views. Mitral Valve Normal MV structure and function by available views. Tricuspid Valve TV structure is normal. Pulmonic Valve Normal PV structure by limited views. Aorta Aortic root size (SInus of Valsalva diameter) is normal . Pericardium No significant pericardial effusion is visualized. IVC/SVC/PA/PV/Pleural The estimated RA pressure by IVC dynamics 5-10mmHg . Chambers/Structures Left Atrium LA Volume: 88.3 ml LA Area: 25.55 cm^2 LA Vol. Index: 47 ml/m^2 Left Ventricle LVIDd: 5.63 cm LV Septum Diastolic: 1.01 cm LV PW Diastolic: 1.04 cm LVEDV Hickey's:163.66 ml LVESV Hickey's:86.8 ml LVEF Hickey's: 47 % LVEDVI: 88 ml/m^2 LVESVI: 47 ml/m^2 LVOT Diameter: 2.09 cm Aorta Ao Root S of Moriah.: 3.44 cm Doppler/Quantitative Measurements LVOT LVOT Diameter: 2.09 cm LVOT Area: 3.43 cm^2 Performing Organization Address City/State/Zipcode Phone Number [facility] ECG 12 lead (12/22/2017 6:19 PM CDT)Only the most recent of2 resultswithin the time period is included. Narrative Performed At Ventricular Rate 87 BPM GE MUSE Atrial Rate 87 BPM P-R Interval 186 ms QRS Duration 112 ms Q-T Interval 362 ms QTC Calculation(Bazett) 435 ms P Bentley 34 degrees R Bentley 67 degrees T Bentley 37 degrees Normal sinus rhythm Possible Left atrial enlargement Incomplete right bundle branch block Borderline ECG When compared with ECG of 22-DEC-2017 12:29, No significant changes Confirmed by Avis ORTIZ, JACKIE ([id number]) on 12/23/2017 12:00:22 PM Procedure Note Interface, External Ris In - 12/23/2017 12:00 PM CDT Ventricular Rate 87 BPM Atrial Rate 87 BPM P-R Interval 186 ms QRS Duration 112 ms Q-T Interval 362 ms QTC Calculation(Bazett) 435 ms P Bentley 34 degrees R Bentley 67 degrees T Bentley 37 degrees Normal sinus rhythm Possible Left atrial enlargement Incomplete right bundle branch block Borderline ECG When compared with ECG of 22-DEC-2017 12:29, No significant changes Confirmed by Avis ORTIZ, JACKIE ([id number]) on 12/23/2017 12:00:22 PM Performing Organization Address City/State/Zipcode Phone Number [facility] MR brain without & with IV contrast (12/22/2017 5:39 PM CDT) Narrative Performed At FINAL REPORT [employer] RIS MRI brain with and without contrast Comparison: None Reason for exam: Decreased alertness Discussion: Multiplanar MR imaging of the brain was provided [id number] IV gadolinium administration using T1, T2, FLAIR, T2 star, diffusion weighted sequences, and ADC map imaging. There are no intracranial hematomas, masses, hydrocephalus, shift, or extra-axial collections. Mild chronic microvascular changes are seen in both cerebral hemispheres. There are no areas of abnormal enhancement or abnormal diffusion restriction. Flow-voids are seen in the basilar and internal carotid arteries as well as in the large posterior dural sinuses. The pineal, sella, and craniocervical junction regions are unremarkable. The visualized orbital contents, paranasal sinuses, skullbase and surrounding soft tissues are unremarkable. Impressions: Unremarkable for age cranial MRI. Signed: Jody Hdz MD Report Verified Date/Time:12/22/2017 17:38:21 Reading Location: [address] Neuro Reading Room Procedure Note Interface, External Ris In - 12/22/2017 5:40 PM CDT FINAL REPORT MRI brain with and without contrast Comparison: None Reason for exam: Decreased alertness Discussion: Multiplanar MR imaging of the brain was provided [id number]-xoim IV gadolinium administration using T1, T2, FLAIR, T2 star, diffusion weighted sequences, and ADC map imaging. There are no intracranial hematomas, masses, hydrocephalus, shift, or extra-axial collections. Mild chronic microvascular changes are seen in both cerebral hemispheres. There are no areas of abnormal enhancement or abnormal diffusion restriction. Flow-voids are seen in the basilar and internal carotid arteries as well as in the large posterior dural sinuses. The pineal, sella, and craniocervical junction regions are unremarkable. The visualized orbital contents, paranasal sinuses, skullbase and surrounding soft tissues are unremarkable. Impressions: Unremarkable for age cranial MRI. Signed: Jody Hdz MD Report Verified Date/Time: 12/22/2017 17:38:21 Reading Location: [facility] B1 [id number] Neuro Reading Room Performing Organization Address City/State/Zipcode Phone Number GE RIS Urine culture (12/22/2017 2:29 PM CDT) Result No growth [facility] Specimen Urine - Urine, Roberto Performing Organization Address City/State/Zipcode Phone Number [facility] [address] [place] [address] CENTER Blood Culture Panel(BioFire) (12/22/2017 1:35 PM CDT) LISTERIA MONOCYTOGENES Not detected Not detected [facility] STAPHYLOCOCCUS Not detected Not detected [facility] STAPHYLOCOCCUS AUREUS Not detected Not detected [facility] Streptococcus Not detected Not detected [facility] STREPTOCOCCUS AGALACTIAE Not detected Not detected [facility] ([facility]) [facility] STREPTOCOCCUS PNEUMONIAE Not detected Not detected [facility] Streptococcus pyogenes (Group Not detected Not detected [facility] ACINETOBACTER BAUMANNII Not detected Not detected [facility] HAEMOPHILUS INFLUENZAE Not detected Not detected [facility] NEISSERIA MENINGITIDIS Not detected Not detected [facility] ENTEROBACTERIACEAE Detected (A) Not detected [facility] ENTEROBACTER CLOACOE COMPLEX Detected (A) Not detected [facility] Comment: [facility] First line therapy: Cefepime or Meropenem This test does not evaluate for ESBL Reference Range: Not Detected KLEBSIELLA OXYTOCA Not detected Not detected [facility] KLEBSIELLA PNEUMONIAE Not detected Not detected [facility] PROTEUS Not detected Not detected [facility] SERRATIA MARCESCENS Not detected Not detected [facility] HUSSAIN ALBICANS Not detected Not detected [facility] HUSSAIN GLABRATA Not detected Not detected [facility] HUSSAIN NELSY Not detected Not detected [facility] HUSSAIN PARAPSILOSIS Not detected Not detected [facility] HUSSAIN TROPICALIS Not detected Not detected [facility] ESCHERICHIA COLI Not detected Not detected [facility] METHICILLIN-RESISTANCE GENE Not detected [facility] VANCOMYCIN-RESISTANCE GENE Not detected [facility] CARBAPENEM-RESISTANCE GENE Not detected Not detected [facility] ENTEROCOCCUS Not detected Not detected [facility] PSEUDOMONAS AERUGINOSA Not detected Not detected [facility] Specimen Blood - Arm, Right Narrative Performed At Other bacteria and resistance markers not [facility] targeted by this PCR panel cannot be excluded; therefore clinical correlation and follow up of serology, culture results, and other molecular studies is required. The results are not intended to be used as the sole means for clinical diagnosis or patient management decisions. This sample was tested at the [facility] Molecular [facility] using the Storactive Blood Culture ID Panel. It is FDA cleared and has been verified and approved by the [facility] for clinical use. This laboratory is CLIA-certified and [employer] (CAP)-accredited to perform high complexity testing. Performing Organization Address City/State/Zipcode Phone Number [facility] [address] [place] [address] CENTER Prothrombin time/INR (12/22/2017 1:35 PM CDT) Protime 15.1 (H) 11.7 - 14.7 seconds [facility] INR 1.2 <=5.9 [facility] Specimen Blood - Arm, Right Narrative Performed At [facility] RECOMMENDED COUMADIN/WARFARIN INR THERAPY RANGES STANDARD DOSE: 2.0 - 3.0 Includes: PROPHYLAXIS for venous thrombosis, systemic embolization; TREATMENT for venous thrombosis and/or pulmonary embolus. HIGH RISK: Target INR is 2.5-3.5 for patients with mechanical heart valves. Performing Organization Address [facility] Phone Number [address] [address] [phone] CENTER Phosphorus (12/22/2017 1:35 PM CDT) Phosphorus 2.0 (L)Comment: Specimen 2.3 - 4.7 mg/dL [facility] slightly hemolyzed [facility] Specimen Blood - Arm, Right Performing Organization Address [facility] Phone Number [address] [address] CENTER B-type Natriuretic Factor (BNP) (12/22/2017 1:35 PM CDT) BNP 810 (H) 0 - 100 pg/mL [facility] Specimen Blood - Arm, Right Performing Organization Address [facility] [place] Phone Number [address] [address] [phone] CENTER Magnesium (12/22/2017 1:35 PM CDT) Magnesium 1.8Comment: Specimen slightly 1.6 - 2.6 mg/dL [facility] hemolyzed [facility] Specimen Blood - Arm, Right Performing Organization Address [facility] [place] Phone Number [address] [address] [phone] CENTER Comprehensive metabolic panel (12/22/2017 1:35 PM CDT) Protein, Total 6.6Comment: Specimen 6.0 - 8.3 gm/dL [facility] slightly hemolyzed [facility] Albumin 3.6Comment: Specimen 3.5 - 5.0 g/dL [facility] hemolyzed [facility] Alkaline Phosphatase 54 40 - 150 U/L [facility] Total Bilirubin 1.2Comment: Specimen 0.2 - 1.2 mg/dL [facility] hemolyzed [facility] Sodium 133 (L) 136 - 145 meq/L [facility] Potassium 3.9Comment: Specimen 3.5 - 5.1 meq/L [facility] slightly hemolyzed [facility] Chloride 103 98 - 107 meq/L [facility] CO2 21 (L) 22 - 29 meq/L [facility] BUN 22 (H) 7 - 21 mg/dL [facility] Creatinine 1.00Comment: Specimen 0.57 - 1.25 mg/dL [facility] slightly hemolyzed [facility] Glucose 111 (H) 70 - 105 mg/dL [facility] Calcium 8.6 8.4 - 10.2 mg/dL [facility] AST 90 (H)Comment: Specimen 5 - 34 U/L [facility] slightly hemolyzed [facility] ALT 26Comment: Specimen 6 - 55 U/L [facility] slightly hemolyzed [facility] EGFR Comment: INSUFFICIENT mL/min/1.73 sq m [facility] CLINICAL DATA TO [facility] CALCULATE ESTIMATED GFR. Specimen Blood - Arm, Right Performing Organization Address City/State/Zipcode Phone Number [facility] [address] [place] [address] CENTER after 02/04/2017 Insurance Payer Benefit Plan / Subscriber ID Type Phone Address Group [employer] - MEDICARE [employer] MEDICARE HMO xxxxxxxx [phone] [address] [place] [address] Advance Directives For more information, please contact:[address] [phone] Code Status Date Activated Date Inactivated Comments Full Code 12/22/2017 10:38 AM 12/31/2017 4:52 PM This code status was determined by: Patient
--- OUTSIDE RECORDS SUMMARY | 2018-02-05 17:25 | XMS REPORT ---
:1935 [facility] Address [address] [place] [address] Dr. Hoover [address] [place] [id number] Care Team Providers Name Role Phone TAYO AUSTIN Unavailable Unavailable STUARTKAVON Yan Unavailable Unavailable Problems This patient has no known problems. Allergies, Adverse Reactions, Alerts This patient has no known allergies or adverse reactions. Medications This patient has no known medications. Results Test Description Test Time Test Comments Text Results Atomic Results Result Comments MR, SPINE, CERVICAL, WITH 2018-02-05 15:41:00 FINAL REPORT MRI of the cervical spine [...] canal stenosis as discussed. Signed: Jody Hdz MDReport Verified Date/Time: 02/05/2018 15:41:32 Reading Location: [facility] C013V Neuro Reading Room -CREATININE 2018-02-05 12:11:00 Test Item Value Reference Range Comments POC-CREATININE (BEAKER) (test 0.9 mg/dL 0.6-1.3 TESTED AT [place] [address] tweo=7685) [facility] [address] POC-EGFR (BEAKER) (test vjib=2056) 81 mL/min/1.73M2 BLOOD [id number] 11:00:00 Test Item Value Reference Range Comments CULTURE (BEAKER) (test jizx=8090) No growth in 5 days BLOOD [id number] 11:00:00 Test Item Value Reference Range Comments CULTURE (BEAKER) (test pevj=1493) No growth in 5 days POCT-GLUCOSE [id number] 08:25:00 Test Item Value Reference Range Comments POC-GLUCOSE METER (BEAKER) 158 mg/dL 70-110 TESTED AT [facility] [address] [facility] (test dndc=8321) [facility] [address] CBC (HEMOGRAM ONLY)2017-12-31 06:44:00 Test Item Value Reference Range Comments WHITE BLOOD CELL COUNT (BEAKER) (test eduv=403) 10.0 K/ L 3.5-10.5 RED BLOOD CELL COUNT (BEAKER) (test etcr=000) 4.33 M/ L 4.63-6.08 HEMOGLOBIN (BEAKER) (test qjxz=089) 13.7 GM/DL 13.7-17.5 HEMATOCRIT (BEAKER) (test nssl=977) 39.6 % 40.1-51.0 MEAN CORPUSCULAR VOLUME (BEAKER) (test vxnr=560) 91.5 fL 79.0-92.2 MEAN CORPUSCULAR HEMOGLOBIN (BEAKER) (test 31.6 pg 25.7-32.2 rjtj=608) MEAN CORPUSCULAR HEMOGLOBIN CONC (BEAKER) (test 34.6 GM/DL 32.3-36.5 ttdh=737) RED CELL DISTRIBUTION WIDTH (BEAKER) (test 12.8 % 11.6-14.4 aavg=144) PLATELET COUNT (BEAKER) (test myfv=513) 330 K/CU MM 150-450 MEAN PLATELET VOLUME (BEAKER) (test pfkb=069) 9.8 fL 9.4-12.4 NUCLEATED RED BLOOD CELLS (BEAKER) (test 0 /100 WBC 0-0 cyay=722) BASIC METABOLIC [id number] 06:02:00 Test Item Value Reference Range Comments SODIUM (BEAKER) (test 131 meq/L 136-145 tfnz=968) POTASSIUM (BEAKER) (test 5.1 meq/L 3.5-5.1 ecgo=405) CHLORIDE (BEAKER) (test 100 meq/L 98-107 lihq=671) CO2 (BEAKER) (test 25 meq/L 22-29 afhf=350) BLOOD UREA NITROGEN 18 mg/dL 7-21 (BEAKER) (test zojw=533) CREATININE (BEAKER) (test 0.80 mg/dL 0.57-1.25 vipl=039) GLUCOSE RANDOM (BEAKER) 117 mg/dL 70-105 (test lxyo=575) CALCIUM (BEAKER) (test 9.3 mg/dL 8.4-10.2 skxg=693) EGFR (BEAKER) (test mL/min/1.73 sq m INSUFFICIENT CLINICAL DATA epab=6454) TO CALCULATE ESTIMATED GFR. CBC (HEMOGRAM ONLY)2017-12-30 04:30:00 Test Item Value Reference Range Comments WHITE BLOOD CELL COUNT (BEAKER) (test nuee=124) 10.4 K/ L 3.5-10.5 RED BLOOD CELL COUNT (BEAKER) (test howp=094) 4.27 M/ L 4.63-6.08 HEMOGLOBIN (BEAKER) (test lqfa=997) 13.5 GM/DL 13.7-17.5 HEMATOCRIT (BEAKER) (test zycr=020) 38.8 % 40.1-51.0 MEAN CORPUSCULAR VOLUME (BEAKER) (test illm=372) 90.9 fL 79.0-92.2 MEAN CORPUSCULAR HEMOGLOBIN (BEAKER) (test 31.6 pg 25.7-32.2 rdoj=976) MEAN CORPUSCULAR HEMOGLOBIN CONC (BEAKER) (test 34.8 GM/DL 32.3-36.5 fjwj=438) RED CELL DISTRIBUTION WIDTH (BEAKER) (test 12.9 % 11.6-14.4 iesr=886) PLATELET COUNT (BEAKER) (test eplu=964) 284 K/CU MM 150-450 MEAN PLATELET VOLUME (BEAKER) (test rlaa=709) 9.8 fL 9.4-12.4 NUCLEATED RED BLOOD CELLS (BEAKER) (test 0 /100 WBC 0-0 mnef=842) U/S, RENAL, [id number] 16:24:00Reason for exam:->hematuriaFINAL REPORT RENAL ULTRASOUND HISTORY: Hematuria TECHNIQUE: Real-time [...] 2. Left kidney absent. Signed: Rut Liu MDReport Verified Date/Time: 12/29/2017 16:24:31 Reading Location: [address] ReadingRoom BLOOD [id number] 12:00:00 Test Item Value Reference Range Comments CULTURE (BEAKER) (test gzre=4346) No growth in 5 days BLOOD [id number] 10:48:00 Test Item Value Reference Range Comments CULTURE (BEAKER) From Anaerobic Bottle Only (test ytal=5709) Same organism has been isolated from cultures(s) of the same body site within 3 days. Repeat identification and susceptibility testing performed only after consultation with the clinical microbiology laboratory.Refer to previous culture of* - Enterobacter cloacae complex GRAM STAIN RESULT From anaerobic bottle (BEAKER) (test only: gram negative bcvw=1190) rods BASIC METABOLIC [id number] 07:16:00 Test Item Value Reference Range Comments SODIUM (BEAKER) (test 130 meq/L 136-145 ncqf=355) POTASSIUM (BEAKER) (test 4.3 meq/L 3.5-5.1 zafv=549) CHLORIDE (BEAKER) (test 99 meq/L 98-107 iowt=013) CO2 (BEAKER) (test 24 meq/L 22-29 kvcg=585) BLOOD UREA NITROGEN 22 mg/dL 7-21 (BEAKER) (test wwbr=692) CREATININE (BEAKER) (test 0.77 mg/dL 0.57-1.25 fwvw=781) GLUCOSE RANDOM (BEAKER) 100 mg/dL 70-105 (test vane=101) CALCIUM (BEAKER) (test 8.6 mg/dL 8.4-10.2 iztj=101) EGFR (BEAKER) (test mL/min/1.73 sq m INSUFFICIENT CLINICAL DATA wfaa=7101) TO CALCULATE ESTIMATED GFR. CBC (HEMOGRAM ONLY)2017-12-29 05:24:00 Test Item Value Reference Range Comments WHITE BLOOD CELL COUNT (BEAKER) (test pkml=788) 9.4 K/ L 3.5-10.5 RED BLOOD CELL COUNT (BEAKER) (test bket=339) 4.22 M/ L 4.63-6.08 HEMOGLOBIN (BEAKER) (test dpxc=622) 13.3 GM/DL 13.7-17.5 HEMATOCRIT (BEAKER) (test xmnh=090) 37.7 % 40.1-51.0 MEAN CORPUSCULAR VOLUME (BEAKER) (test ubck=000) 89.3 fL 79.0-92.2 MEAN CORPUSCULAR HEMOGLOBIN (BEAKER) (test 31.5 pg 25.7-32.2 occn=047) MEAN CORPUSCULAR HEMOGLOBIN CONC (BEAKER) (test 35.3 GM/DL 32.3-36.5 ahhv=459) RED CELL DISTRIBUTION WIDTH (BEAKER) (test 12.8 % 11.6-14.4 josb=710) PLATELET COUNT (BEAKER) (test nkza=957) 235 K/CU MM 150-450 MEAN PLATELET VOLUME (BEAKER) (test rftw=653) 10.3 fL 9.4-12.4 NUCLEATED RED BLOOD CELLS (BEAKER) (test 0 /100 WBC 0-0 thop=145) URINALYSIS W/ REFLEX URINE [id number] 18:27:00 Test Item Value Reference Range Comments COLOR (BEAKER) (test iamu=895) Yellow CLARITY (BEAKER) (test wgrf=232) Clear SPECIFIC GRAVITY UA (BEAKER) (test knyr=438) 1.012 1.001-1.035 PH UA (BEAKER) (test kelk=607) 6.5 5.0-8.0 PROTEIN UA (BEAKER) (test bslg=090) Negative Negative GLUCOSE UA (BEAKER) (test kduo=704) Negative Negative KETONES UA (BEAKER) (test wyog=107) Negative Negative BILIRUBIN UA (BEAKER) (test qhvi=348) Negative Negative BLOOD UA (BEAKER) (test ycsi=184) Moderate Negative NITRITE UA (BEAKER) (test onqa=265) Negative Negative LEUKOCYTE ESTERASE UA (BEAKER) (test joyb=590) Negative Negative UROBILINOGEN UA (BEAKER) (test obsj=372) 2.0 mg/dL 0.2-1.0 RBC UA (BEAKER) (test ofhk=125) 31 /HPF WBC UA (BEAKER) (test ilfp=753) 1 /HPF MUCUS (BEAKER) (test agwr=2659) Rare SOURCE(BEAKER) (test uxke=8643) BASIC METABOLIC [id number] 06:04:00 Test Item Value Reference Range Comments SODIUM (BEAKER) (test 131 meq/L 136-145 divu=157) POTASSIUM (BEAKER) (test 4.0 meq/L 3.5-5.1 oxws=662) CHLORIDE (BEAKER) (test 101 meq/L 98-107 aidt=943) CO2 (BEAKER) (test 24 meq/L 22-29 aqvi=386) BLOOD UREA NITROGEN 23 mg/dL 7-21 (BEAKER) (test xemo=360) CREATININE (BEAKER) (test 0.79 mg/dL 0.57-1.25 jear=402) GLUCOSE RANDOM (BEAKER) 113 mg/dL 70-105 (test glrl=502) CALCIUM (BEAKER) (test 8.5 mg/dL 8.4-10.2 idpt=116) EGFR (BEAKER) (test mL/min/1.73 sq m INSUFFICIENT CLINICAL DATA vfwe=2291) TO CALCULATE ESTIMATED GFR. CBC (HEMOGRAM ONLY)2017-12-28 05:26:00 Test Item Value Reference Range Comments WHITE BLOOD CELL COUNT (BEAKER) (test ncad=789) 9.2 K/ L 3.5-10.5 RED BLOOD CELL COUNT (BEAKER) (test vlnw=472) 4.02 M/ L 4.63-6.08 HEMOGLOBIN (BEAKER) (test xlsj=950) 12.7 GM/DL 13.7-17.5 HEMATOCRIT (BEAKER) (test pywe=767) 35.9 % 40.1-51.0 MEAN CORPUSCULAR VOLUME (BEAKER) (test zrie=973) 89.3 fL 79.0-92.2 MEAN CORPUSCULAR HEMOGLOBIN (BEAKER) (test 31.6 pg 25.7-32.2 ebvz=562) MEAN CORPUSCULAR HEMOGLOBIN CONC (BEAKER) (test 35.4 GM/DL 32.3-36.5 adou=173) RED CELL DISTRIBUTION WIDTH (BEAKER) (test 12.8 % 11.6-14.4 dbif=169) PLATELET COUNT (BEAKER) (test qocm=078) 181 K/CU MM 150-450 MEAN PLATELET VOLUME (BEAKER) (test ravb=940) 10.6 fL 9.4-12.4 NUCLEATED RED BLOOD CELLS (BEAKER) (test 0 /100 WBC 0-0 bgdu=756) BLOOD [id number] 13:37:00 Test Item Value Reference Range Comments CULTURE (BEAKER) From Aerobic And Anaerobic (test fhql=7606) Bottles Same organism has been isolated from cultures(s) of the same body site and collection date. Repeat identification and susceptibility testing performed only after consultation with the clinical microbiology laboratory.Refer to previous culture of* - Enterobacter cloacae complex GRAM STAIN RESULT From aerobic and (BEAKER) (test anaerobic bottles: asnk=2168) gram negative rods Previously reported organism is no longer reported. Please contact the Microbiology Department for additional information.BLOOD [id number] 08:29 :00 Test Item Value Reference Range Comments CULTURE (BEAKER) (test ENTEROBACTER ASBURIAE From Aerobic And tygx=5437) Anaerobic Bottles Enterobacter asburiae* - Identification is Enterobacter cloacae complex Amikacin (test code=1) Aztreonam (test code=32) Cefepime (test code=51) Cefoxitin (test code=68) Ceftazidime (test code=27) Ceftriaxone (test code=52) Ertapenem (test code=38) Gentamicin (test code=18) Levofloxacin (test code=22) Meropenem (test code=34) Nitrofurantoin (test code=23) Piperacillin + Tazobactam (test code=29) Tetracycline (test code=2) Tobramycin (test code=25) Trimethoprim + Sulfamethoxazole (test code=47) GRAM STAIN RESULT From aerobic and (BEAKER) (test ojxo=8117) anaerobic bottles: gram negative rods Final identification has changed, see organism commentBASIC METABOLIC [id number] 06:58:00 Test Item Value Reference Range Comments SODIUM (BEAKER) (test 128 meq/L 136-145 kiig=326) POTASSIUM (BEAKER) (test 4.1 meq/L 3.5-5.1 hjqm=665) CHLORIDE (BEAKER) (test 98 meq/L 98-107 osbn=728) CO2 (BEAKER) (test 24 meq/L 22-29 ftbf=941) BLOOD UREA NITROGEN 20 mg/dL 7-21 (BEAKER) (test vvmv=329) CREATININE (BEAKER) (test 0.81 mg/dL 0.57-1.25 qmxj=779) GLUCOSE RANDOM (BEAKER) 116 mg/dL 70-105 (test povz=949) CALCIUM (BEAKER) (test 8.5 mg/dL 8.4-10.2 pruv=192) EGFR (BEAKER) (test mL/min/1.73 sq m INSUFFICIENT CLINICAL DATA hdaj=4880) TO CALCULATE ESTIMATED GFR. CBC (HEMOGRAM ONLY)2017-12-27 06:16:00 Test Item Value Reference Range Comments WHITE BLOOD CELL COUNT (BEAKER) (test abbu=746) 11.5 K/ L 3.5-10.5 RED BLOOD CELL COUNT (BEAKER) (test vtwh=460) 4.20 M/ L 4.63-6.08 HEMOGLOBIN (BEAKER) (test cynn=529) 13.2 GM/DL 13.7-17.5 HEMATOCRIT (BEAKER) (test mpru=079) 37.1 % 40.1-51.0 MEAN CORPUSCULAR VOLUME (BEAKER) (test mvin=823) 88.3 fL 79.0-92.2 MEAN CORPUSCULAR HEMOGLOBIN (BEAKER) (test 31.4 pg 25.7-32.2 tktv=797) MEAN CORPUSCULAR HEMOGLOBIN CONC (BEAKER) (test 35.6 GM/DL 32.3-36.5 fwii=962) RED CELL DISTRIBUTION WIDTH (BEAKER) (test 12.6 % 11.6-14.4 pfsi=665) PLATELET COUNT (BEAKER) (test ijxj=187) 152 K/CU MM 150-450 MEAN PLATELET VOLUME (BEAKER) (test usyx=285) 11.2 fL 9.4-12.4 NUCLEATED RED BLOOD CELLS (BEAKER) (test 0 /100 WBC 0-0 hldb=668) [id number] 07:03:00 Test Item Value Reference Range Comments PROSTATE SPECIFIC ANTIGEN (BEAKER) (test nylt=550) 5.5 ng/mL 0.0-4.0 BASIC METABOLIC [id number] 06:50:00 Test Item Value Reference Range Comments SODIUM (BEAKER) (test 131 meq/L 136-145 ncjs=681) POTASSIUM (BEAKER) (test 4.1 meq/L 3.5-5.1 awnn=599) CHLORIDE (BEAKER) (test 100 meq/L 98-107 llzn=576) CO2 (BEAKER) (test 24 meq/L 22-29 vsvl=378) BLOOD UREA NITROGEN 18 mg/dL 7-21 (BEAKER) (test wizf=547) CREATININE (BEAKER) (test 0.77 mg/dL 0.57-1.25 vntr=484) GLUCOSE RANDOM (BEAKER) 115 mg/dL 70-105 (test pxbt=461) CALCIUM (BEAKER) (test 8.3 mg/dL 8.4-10.2 qxkp=129) EGFR (BEAKER) (test mL/min/1.73 sq m INSUFFICIENT CLINICAL DATA tfjv=3426) TO CALCULATE ESTIMATED GFR. CBC (HEMOGRAM ONLY)2017-12-26 06:12:00 Test Item Value Reference Range Comments WHITE BLOOD CELL COUNT (BEAKER) (test kzae=375) 9.5 K/ L 3.5-10.5 RED BLOOD CELL COUNT (BEAKER) (test bvsm=744) 3.83 M/ L 4.63-6.08 HEMOGLOBIN (BEAKER) (test tplu=460) 12.2 GM/DL 13.7-17.5 HEMATOCRIT (BEAKER) (test espw=485) 34.2 % 40.1-51.0 MEAN CORPUSCULAR VOLUME (BEAKER) (test funw=431) 89.3 fL 79.0-92.2 MEAN CORPUSCULAR HEMOGLOBIN (BEAKER) (test 31.9 pg 25.7-32.2 fzxf=633) MEAN CORPUSCULAR HEMOGLOBIN CONC (BEAKER) (test 35.7 GM/DL 32.3-36.5 uwmo=344) RED CELL DISTRIBUTION WIDTH (BEAKER) (test 12.7 % 11.6-14.4 ogzk=594) PLATELET COUNT (BEAKER) (test lnwx=922) 90 K/CU MM 150-450 MEAN PLATELET VOLUME (BEAKER) (test jwdr=786) 11.3 fL 9.4-12.4 NUCLEATED RED BLOOD CELLS (BEAKER) (test 0 /100 WBC 0-0 cjud=853) BASIC METABOLIC [id number] 08:23:00 Test Item Value Reference Range Comments SODIUM (BEAKER) (test 129 meq/L 136-145 pdyn=377) POTASSIUM (BEAKER) (test 3.6 meq/L 3.5-5.1 rpfu=342) CHLORIDE (BEAKER) (test 102 meq/L 98-107 xgqy=717) CO2 (BEAKER) (test 23 meq/L 22-29 nmcs=244) BLOOD UREA NITROGEN 18 mg/dL 7-21 (BEAKER) (test bege=305) CREATININE (BEAKER) (test 0.75 mg/dL 0.57-1.25 epyy=396) GLUCOSE RANDOM (BEAKER) 116 mg/dL 70-105 (test kouf=942) CALCIUM (BEAKER) (test 8.0 mg/dL 8.4-10.2 wlnl=307) EGFR (BEAKER) (test mL/min/1.73 sq m INSUFFICIENT CLINICAL DATA agcn=5513) TO CALCULATE ESTIMATED GFR. CBC (HEMOGRAM ONLY)2017-12-25 05:48:00 Test Item Value Reference Range Comments WHITE BLOOD CELL COUNT (BEAKER) (test qjah=311) 7.1 K/ L 3.5-10.5 RED BLOOD CELL COUNT (BEAKER) (test dxra=194) 3.52 M/ L 4.63-6.08 HEMOGLOBIN (BEAKER) (test gjhq=529) 11.1 GM/DL 13.7-17.5 HEMATOCRIT (BEAKER) (test mnyu=583) 31.2 % 40.1-51.0 MEAN CORPUSCULAR VOLUME (BEAKER) (test scwd=415) 88.6 fL 79.0-92.2 MEAN CORPUSCULAR HEMOGLOBIN (BEAKER) (test 31.5 pg 25.7-32.2 rerr=524) MEAN CORPUSCULAR HEMOGLOBIN CONC (BEAKER) (test 35.6 GM/DL 32.3-36.5 nsrp=699) RED CELL DISTRIBUTION WIDTH (BEAKER) (test 12.5 % 11.6-14.4 wjfr=081) PLATELET COUNT (BEAKER) (test sqah=441) 66 K/CU MM 150-450 MEAN PLATELET VOLUME (BEAKER) (test gsld=086) 12.0 fL 9.4-12.4 NUCLEATED RED BLOOD CELLS (BEAKER) (test 0 /100 WBC 0-0 uibs=759) CBC W/PLT COUNT & AUTO [id number] 05:48:00 Test Item Value Reference Range Comments WHITE BLOOD CELL COUNT (BEAKER) (test oyge=231) 7.1 K/ L 3.5-10.5 RED BLOOD CELL COUNT (BEAKER) (test gssi=507) 3.52 M/ L 4.63-6.08 HEMOGLOBIN (BEAKER) (test hcsl=661) 11.1 GM/DL 13.7-17.5 HEMATOCRIT (BEAKER) (test sezw=544) 31.2 % 40.1-51.0 MEAN CORPUSCULAR VOLUME (BEAKER) (test rmjv=381) 88.6 fL 79.0-92.2 MEAN CORPUSCULAR HEMOGLOBIN (BEAKER) (test 31.5 pg 25.7-32.2 ndrb=179) MEAN CORPUSCULAR HEMOGLOBIN CONC (BEAKER) (test 35.6 GM/DL 32.3-36.5 pvhj=332) RED CELL DISTRIBUTION WIDTH (BEAKER) (test 12.5 % 11.6-14.4 uayp=875) PLATELET COUNT (BEAKER) (test jmzg=718) 66 K/CU MM 150-450 MEAN PLATELET VOLUME (BEAKER) (test krun=299) 12.0 fL 9.4-12.4 NUCLEATED RED BLOOD CELLS (BEAKER) (test 0 /100 WBC 0-0 tgov=212) NEUTROPHILS RELATIVE PERCENT (BEAKER) (test 70 % szir=997) LYMPHOCYTES RELATIVE PERCENT (BEAKER) (test 16 % wkeo=585) MONOCYTES RELATIVE PERCENT (BEAKER) (test 13 % kawt=202) EOSINOPHILS RELATIVE PERCENT (BEAKER) (test 0 % fgeu=432) BASOPHILS RELATIVE PERCENT (BEAKER) (test 0 % tvfv=717) NEUTROPHILS ABSOLUTE COUNT (BEAKER) (test 4.96 K/ L 1.78-5.38 tdvm=740) LYMPHOCYTES ABSOLUTE COUNT (BEAKER) (test 1.16 K/ L 1.32-3.57 cuwy=888) MONOCYTES ABSOLUTE COUNT (BEAKER) (test qztn=823) 0.92 K/ L 0.30-0.82 EOSINOPHILS ABSOLUTE COUNT (BEAKER) (test 0.03 K/ L 0.04-0.54 isgr=148) BASOPHILS ABSOLUTE COUNT (BEAKER) (test cqgx=787) 0.02 K/ L 0.01-0.08 IMMATURE GRANULOCYTES-RELATIVE PERCENT (BEAKER) 1 % 0-1 (test ymye=1174) [id number] 23:09:00 Test Item Value Reference Range Comments PARTIAL THROMBOPLASTIN TIME (BEAKER) (test 51.4 seconds 22.5-36.0 vndw=241) OCCULT BLOOD, [id number] 15:46:00 Test Item Value Reference Range Comments FECAL OCCULT BLOOD (BEAKER) (test eevb=281) Positive Negative [id number] 15:44:00 Test Item Value Reference Range Comments PARTIAL THROMBOPLASTIN TIME (BEAKER) (test 40.9 seconds 22.5-36.0 xbjz=130) [id number] 14:06:00 Test Item Value Reference Range Comments PARTIAL THROMBOPLASTIN TIME (BEAKER) (test 163.9 seconds 22.5-36.0 blnw=279) VANCOMYCIN LEVEL, [id number] 06:03:00 Test Item Value Reference Range Comments VANCOMYCIN TROUGH (BEAKER) (test jdge=569) 7.7 ug/mL 10.0-20.0 LACTIC ACID, VENOUS, WHOLE [id number] 05:06:00 Test Item Value Reference Range Comments LACTATE BLOOD VENOUS (2) 1.1 mmol/L 0.5-2.2 Specimen slightly hemolyzed (BEAKER) (test bhua=1484) Effective 08/11/2015: Units/Reference Range ChangeNew: 0.5-2.2 mmol/L Previous: 5 -20 mg/[id number] 05:05:00 Test Item Value Reference Range Comments PARTIAL THROMBOPLASTIN TIME (BEAKER) (test 60.9 seconds 22.5-36.0 ibgp=246) [id number] 02:38:00 Test Item Value Reference Range Comments PARTIAL THROMBOPLASTIN TIME (BEAKER) (test 60.7 seconds 22.5-36.0 xmcr=813) RAD, CHEST, 1 VIEW, NON [id number] 22:07:00Reason for exam:-> dyspneaShould this be performed at the bedside?->YesFINAL REPORT Chest one view. Clinical history: dyspnea Comparison: None. Technique: A single frontal view of the chest was obtained. Findings:The patient is status post median sternotomy. There are surgical clips in mediastinum. The aorta is atherosclerotic and uncoiled.The heart is normal in size. There is no pulmonary edema, focal pulmonary consolidation or definite pleuraleffusion. Signed: Blank Molinaeport Verified Date/Time: 2017 22:07:46 Reading Location: [address] Body Reading Room [id number] 19:21:00 Test Item Value Reference Range Comments PARTIAL THROMBOPLASTIN TIME (BEAKER) (test 108.5 seconds 22.5-36.0 wwkh=421) VANCOMYCIN LEVEL, [id number] 16:12:00 Test Item Value Reference Range Comments VANCOMYCIN TROUGH (BEAKER) (test iuyk=185) 5.8 ug/mL 10.0-20.0 [id number] 13:23:00 Test Item Value Reference Range Comments PARTIAL THROMBOPLASTIN TIME (BEAKER) (test 91.0 seconds 22.5-36.0 axzi=406) [id number] 04:43:00 Test Item Value Reference Range Comments PARTIAL THROMBOPLASTIN TIME (BEAKER) (test 106.8 seconds 22.5-36.0 xvry=814) Prior to initiating heparinTROPONIN [id number] 04:27:00 Test Item Value Reference Range Comments TROPONIN I (BEAKER) (test hglc=138) 6.35 ng/mL 0.00-0.03 Troponin I (TnI) levels must be interpreted [...] failure, acidosis, acute neurological disease, and persistent tachyarrhythmia.VANCOMYCIN LEVEL, [id number] 04:23 :00 Test Item Value Reference Range Comments VANCOMYCIN TROUGH (BEAKER) (test yxoq=267) 7.2 ug/mL 10.0-20.0 BASIC METABOLIC [id number] 04:21:00 Test Item Value Reference Range Comments SODIUM (BEAKER) (test 133 meq/L 136-145 pyan=328) POTASSIUM (BEAKER) (test 4.0 meq/L 3.5-5.1 bprz=432) CHLORIDE (BEAKER) (test 104 meq/L 98-107 vnrn=815) CO2 (BEAKER) (test 22 meq/L 22-29 hddx=867) BLOOD UREA NITROGEN 24 mg/dL 7-21 (BEAKER) (test zrft=373) CREATININE (BEAKER) (test 0.98 mg/dL 0.57-1.25 abgf=519) GLUCOSE RANDOM (BEAKER) 120 mg/dL 70-105 (test djqx=442) CALCIUM (BEAKER) (test 8.2 mg/dL 8.4-10.2 rpxf=263) EGFR (BEAKER) (test mL/min/1.73 sq m INSUFFICIENT CLINICAL DATA cnjs=1289) TO CALCULATE ESTIMATED GFR. CBC W/PLT COUNT & AUTO [id number] 04:17:00 Test Item Value Reference Range Comments WHITE BLOOD CELL COUNT (BEAKER) (test muae=274) 5.3 K/ L 3.5-10.5 RED BLOOD CELL COUNT (BEAKER) (test vrbj=426) 3.80 M/ L 4.63-6.08 HEMOGLOBIN (BEAKER) (test aikl=538) 12.2 GM/DL 13.7-17.5 HEMATOCRIT (BEAKER) (test feyt=833) 35.0 % 40.1-51.0 MEAN CORPUSCULAR VOLUME (BEAKER) (test asni=693) 92.1 fL 79.0-92.2 MEAN CORPUSCULAR HEMOGLOBIN (BEAKER) (test 32.1 pg 25.7-32.2 igni=999) MEAN CORPUSCULAR HEMOGLOBIN CONC (BEAKER) (test 34.9 GM/DL 32.3-36.5 wdkn=249) RED CELL DISTRIBUTION WIDTH (BEAKER) (test 12.8 % 11.6-14.4 pvth=754) PLATELET COUNT (BEAKER) (test bsvs=495) 41 K/CU MM 150-450 MEAN PLATELET VOLUME (BEAKER) (test jsiq=110) 11.5 fL 9.4-12.4 NUCLEATED RED BLOOD CELLS (BEAKER) (test 0 /100 WBC 0-0 oemr=734) NEUTROPHILS RELATIVE PERCENT (BEAKER) (test 89 % tbrj=062) LYMPHOCYTES RELATIVE PERCENT (BEAKER) (test 8 % eafc=227) MONOCYTES RELATIVE PERCENT (BEAKER) (test 2 % hndx=943) EOSINOPHILS RELATIVE PERCENT (BEAKER) (test 0 % xxes=695) BASOPHILS RELATIVE PERCENT (BEAKER) (test 0 % kkfj=586) NEUTROPHILS ABSOLUTE COUNT (BEAKER) (test 4.72 K/ L 1.78-5.38 axiz=109) LYMPHOCYTES ABSOLUTE COUNT (BEAKER) (test 0.42 K/ L 1.32-3.57 vydp=510) MONOCYTES ABSOLUTE COUNT (BEAKER) (test ahyp=687) 0.11 K/ L 0.30-0.82 EOSINOPHILS ABSOLUTE COUNT (BEAKER) (test 0.00 K/ L 0.04-0.54 csku=271) BASOPHILS ABSOLUTE COUNT (BEAKER) (test hwwj=199) 0.00 K/ L 0.01-0.08 IMMATURE GRANULOCYTES-RELATIVE PERCENT (BEAKER) 1 % 0-1 (test ktzb=7416) LIPID [id number] 04:17:00 Test Item Value Reference Range Comments TRIGLYCERIDES (BEAKER) (test pqqu=027) 98 mg/dL CHOLESTEROL (BEAKER) (test rwud=188) 91 mg/dL HDL CHOLESTEROL (BEAKER) (test duzn=470) 32 mg/dL LDL CHOLESTEROL CALCULATED (BEAKER) (test eqgn=031) 39 mg/dL Triglyceride Reference Range: Low Risk <150 Borderline 150- 199 High Risk 200-499 Very High Risk >=500Cholesterol Reference Range: Low Risk <200 Borderline 200-239 High Risk > 240HDL Cholesterol Reference Range: Low Risk >=60 High Risk <40LDL Cholesterol Reference Range: Optimal <100 Near Optimal 100-129 Borderline 130-159 High 160-189 Very High >=190PLATELET [id number] 03:56:00 Test Item Value Reference Range Comments PLATELET COUNT (BEAKER) (test zwfu=653) 32 K/CU MM 150-450 CBC (HEMOGRAM ONLY)2017-12-23 03:54:00 Test Item Value Reference Range Comments WHITE BLOOD CELL COUNT (BEAKER) (test syfj=930) 5.3 K/ L 3.5-10.5 RED BLOOD CELL COUNT (BEAKER) (test cfts=245) 3.80 M/ L 4.63-6.08 HEMOGLOBIN (BEAKER) (test iabj=919) 12.2 GM/DL 13.7-17.5 HEMATOCRIT (BEAKER) (test egzc=295) 35.0 % 40.1-51.0 MEAN CORPUSCULAR VOLUME (BEAKER) (test ftor=361) 92.1 fL 79.0-92.2 MEAN CORPUSCULAR HEMOGLOBIN (BEAKER) (test 32.1 pg 25.7-32.2 zfsd=477) MEAN CORPUSCULAR HEMOGLOBIN CONC (BEAKER) (test 34.9 GM/DL 32.3-36.5 szpq=520) RED CELL DISTRIBUTION WIDTH (BEAKER) (test 12.8 % 11.6-14.4 ekvs=445) PLATELET COUNT (BEAKER) (test ptlg=891) 41 K/CU MM 150-450 MEAN PLATELET VOLUME (BEAKER) (test zgdq=260) 11.5 fL 9.4-12.4 NUCLEATED RED BLOOD CELLS (BEAKER) (test 0 /100 WBC 0-0 tvgf=541) BLOOD CULTURE IDENTIFICATION [id number] 03:51:00 Test Item Value Reference Range Comments LISTERIA MONOCYTOGENES (test Not detected Not detected feet=[id number]) STAPHYLOCOCCUS (test Not detected Not detected wvrv=7857810) STAPHYLOCOCCUS AUREUS (test Not detected Not detected obij=4431133) STREPTOCOCCUS (test Not detected Not detected ymlb=1418134) STREPTOCOCCUS AGALACTIAE (GROUP Not detected Not detected B) (test mtoi=[id number]) STREPTOCOCCUS PNEUMONIAE (test Not detected Not detected btic=9623589) STREPTOCOCCUS PYOGENES (GROUP Not detected Not detected A) (test woku=5133550) ACINETOBACTER BAUMANNII (test Not detected Not detected asdo=4571432) HAEMOPHILUS INFLUENZAE (test Not detected Not detected bgkf=0670301) NEISSERIA MENINGITIDIS (test Not detected Not detected clbt=5337280) ENTEROBACTERIACEAE (test Detected Not detected iutq=6376138) ENTEROBACTER CLOACOE COMPLEX Detected Not detected First line therapy: (test aqkl=3673013) Cefepime or MeropenemThis test does not evaluate for ESBLReference Range: Not Detected KLEBSIELLA OXYTOCA (test Not detected Not detected aofq=0323637) KLEBSIELLA PNEUMONIAE (test Not detected Not detected ggvg=6851) PROTEUS (test vkcp=8496644) Not detected Not detected SERRATIA MARCESCENS (test Not detected Not detected plca=8988321) HUSSAIN ALBICANS (test Not detected Not detected ujls=9175161) HUSSAIN GLABRATA (test Not detected Not detected uryt=8356622) HUSSAIN KRUSEI (test Not detected Not detected lspy=6820810) HUSSAIN PARAPSILOSIS (test Not detected Not detected lljh=7121082) HUSSAIN TROPICALIS (test Not detected Not detected cqlm=1169294) ESCHERICHIA COLI (test Not detected Not detected szop=[id number]) METHICILLIN-RESISTANCE GENE Not detected (test wtcj=[id number]) VANCOMYCIN-RESISTANCE GENE Not detected (test fmqn=[id number]) CARBAPENEM-RESISTANCE GENE Not detected Not detected (test wzoy=[id number]) ENTEROCOCCUS-BEAKER (test Not detected Not detected llkd=[id number]) PSEUDOMONAS AERUGINOSA-BEAKER Not detected Not detected (test qvhz=[id number]) Other bacteria and resistance markers not targeted by this PCR panel cannot be excluded; therefore clinical correlation and follow up of serology, culture results, and other molecular studies is required. The results are not intended to be used as the sole means for clinical diagnosis or patient management decisions. This sample was tested at the [facility] using the [employer] Blood Culture ID Panel. It is FDA cleared and has been verified and approved by the [facility] for clinical use. This laboratory is CLIA-certified and College ofAmerican Pathologists (CAP)-accredited to perform high complexity testing.TROPONIN I2018- 09-15 21:07:00 Test Item Value Reference Range Comments TROPONIN I (FRANK) (test dbly=380) 8.76 ng/mL 0.00-0.03 Troponin I (TnI) levels must be interpreted [...] failure, acidosis, acute neurological disease, and persistent tachyarrhythmia.MR, SPINE, CERVICAL, [id number] 17: 55:00FINAL REPORT MRI of the cervical spine pre and postcontrast Comparison: None Reason for exam: Neck pain, history of neck injection on Sunday, with fever Discussion: Sagittal and axial multisequence MR imaging of the cervical spine was provided pre and postcontrast There is spondylosis in the mid to low cervical region with spondylotic disc bulges contributing to central canal stenosis mild C4/5, moderate to severe C5/6, mild C6/7. There is circumferential epidural enhancement within the canal from C3 to C7, most substantial C4-C6. There is also ventral prevertebral edema and enhancement. Given the procedural history and reported fever, the findings are concerning for an ill-defined infiltrative cellulitis along the prevertebral region and potentially involving theepidural space. There is no specific evidence of abscess at this time. Bone marrow signal alterations at multiple mid to low cervical levels are presumably degenerative in nature. Note that the possibility of early evidence of osteomyelitis would be difficult to exclude in this scenario. It should also be noted that the epidural enhancement may be a contributing factor to the canal stenosis. I do notsee specific evidence of acute cord compromise but correlation should be made with clinical evidenceof myelopathy. Impressions: Prevertebral and epidural multilevel enhancement without specific evidence of abscess. A diffusion ill-defined infectious process is a concern. Consider short-term MRI follow-up to evaluate for abscess if there is clinically progressive findings. Signed: Jody Hdz Verified Date/Time: 12/22/2017 17:55:40 Reading Location: [address] Neuro Reading Room 05 :55 PMMR, BRAIN, [id number] 17:38:00FINAL REPORT MRI brain with and without contrast Comparison: None Reason for exam: Decreased alertness Discussion: Multiplanar MR imaging of the brain was provided [id number] IV gadolinium administration using T1, T2, FLAIR, T2 star , diffusion weighted sequences, and ADC map imaging. There are no intracranial hematomas, masses, hydrocephalus, shift, or extra-axial collections. Mild chronic microvascular changes are seen in both cerebral hemispheres. There are no areasof abnormal enhancement or abnormal diffusion restriction. Flow- voids are seen in the basilar and internal carotid arteries as well as in the large posterior dural sinuses. The pineal, sella, and craniocervical junction regions are unremarkable. The visualized orbital contents, paranasal sinuses, skullbase and surrounding soft tissues are unremarkable. Impressions: Unremarkable for age cranial MRI. Signed: Jody Hdz Verified Date/ Time: 12/22/2017 17:38:21 Reading Location: [address] Neuro Reading Room URINALYSIS W/ REFLEX URINE [id number] 14:48:00 Test Item Value Reference Range Comments COLOR (BEAKER) (test kytw=209) Yellow CLARITY (BEAKER) (test yrvu=024) Clear SPECIFIC GRAVITY UA (BEAKER) (test ptrv=678) 1.019 1.001-1.035 PH UA (BEAKER) (test xvja=454) 6.5 5.0-8.0 PROTEIN UA (BEAKER) (test fuun=234) 70 mg/dL Negative GLUCOSE UA (BEAKER) (test roor=332) Negative Negative KETONES UA (BEAKER) (test jhez=343) 20 mg/dL Negative BILIRUBIN UA (BEAKER) (test xvqs=112) Negative Negative BLOOD UA (BEAKER) (test aedv=771) Large Negative NITRITE UA (BEAKER) (test ycvi=301) Negative Negative LEUKOCYTE ESTERASE UA (BEAKER) (test xfjg=930) Trace Negative UROBILINOGEN UA (BEAKER) (test uevw=091) 2.0 mg/dL 0.2-1.0 RBC UA (BEAKER) (test dgpc=608) 52 /HPF WBC UA (BEAKER) (test jctr=443) 12 /HPF BACTERIA (BEAKER) (test avqi=141) Rare MUCUS (BEAKER) (test jdlm=2309) Rare SQUAMOUS EPITHELIAL (BEAKER) (test uhel=717) 2 /HPF SOURCE(BEAKER) (test ellv=0216) TROPONIN [id number] 14:32:00 Test Item Value Reference Range Comments TROPONIN I (BEAKER) (test gmha=520) 7.20 ng/mL 0.00-0.03 Troponin I (TnI) levels must be interpreted [...] failure, acidosis, acute neurological disease, and persistent tachyarrhythmia.B-TYPE NATRIURETIC FACTOR (BNP) 14:26:00 Test Item Value Reference Range Comments B-TYPE NATRIURETIC PEPTIDE (BEAKER) (test 810 pg/mL 0-100 hmyn=332) COMPREHENSIVE METABOLIC [id number] 14:21:00 Test Item Value Reference Range Comments TOTAL PROTEIN (BEAKER) 6.6 gm/dL 6.0-8.3 Specimen slightly (test yajn=817) hemolyzed ALBUMIN (BEAKER) (test 3.6 g/dL 3.5-5.0 Specimen slightly oiqe=6791) hemolyzed ALKALINE PHOSPHATASE 54 U/L 40-150 (BEAKER) (test rexz=414) BILIRUBIN TOTAL (BEAKER) 1.2 mg/dL 0.2-1.2 Specimen slightly (test tjiz=073) hemolyzed SODIUM (BEAKER) (test 133 meq/L 136-145 heji=962) POTASSIUM (BEAKER) (test 3.9 meq/L 3.5-5.1 Specimen slightly xums=808) hemolyzed CHLORIDE (BEAKER) (test 103 meq/L 98-107 bofy=949) CO2 (BEAKER) (test 21 meq/L 22-29 ykqk=606) BLOOD UREA NITROGEN 22 mg/dL 7-21 (BEAKER) (test glkn=458) CREATININE (BEAKER) (test 1.00 mg/dL 0.57-1.25 Specimen slightly ttnn=105) hemolyzed GLUCOSE RANDOM (BEAKER) 111 mg/dL 70-105 (test biho=935) CALCIUM (BEAKER) (test 8.6 mg/dL 8.4-10.2 xflq=813) AST (SGOT) (BEAKER) (test 90 U/L 5-34 Specimen slightly cuyj=500) hemolyzed ALT (SGPT) (BEAKER) (test 26 U/L 6-55 Specimen slightly whem=264) hemolyzed EGFR (BEAKER) (test mL/min/1.73 sq m INSUFFICIENT CLINICAL DATA lhew=8645) TO CALCULATE ESTIMATED GFR. [id number] 14:20:00 Test Item Value Reference Range Comments MAGNESIUM (BEAKER) (test 1.8 mg/dL 1.6-2.6 Specimen slightly hemolyzed mtyq=279) [id number] 14:20:00 Test Item Value Reference Range Comments PHOSPHORUS (BEAKER) (test 2.0 mg/dL 2.3-4.7 Specimen slightly hemolyzed cewd=384) LACTIC ACID, VENOUS, WHOLE [id number] 14:20:00 Test Item Value Reference Range Comments LACTATE BLOOD VENOUS (2) 3.6 mmol/L 0.5-2.2 Specimen slightly hemolyzed (BEAKER) (test rhwb=2433) Effective 08/11/2015: Units/Reference Range ChangeNew: 0.5-2.2 mmol/L Previous: 5 -20 mg/dLPROTHROMBIN TIME/[id number] 14:02:00 Test Item Value Reference Range Comments PROTIME (BEAKER) (test okat=312) 15.1 seconds 11.7-14.7 INR (BEAKER) (test qlep=296) 1.2 <=5.9 RECOMMENDED COUMADIN/WARFARIN INR THERAPY RANGESSTANDARD DOSE: 2.0 - 3.0 Includes: PROPHYLAXIS forvenous thrombosis, systemic embolization; TREATMENT for venous thrombosis and/or pulmonary embolus.HIGH RISK: Target INR is 2.5-3.5 for patients with mechanical heart valves.CBC W/PLT COUNT & AUTO [id number] 13:57:00 Test Item Value Reference Range Comments WHITE BLOOD CELL COUNT (BEAKER) (test hshw=910) 7.1 K/ L 3.5-10.5 RED BLOOD CELL COUNT (BEAKER) (test lhaz=490) 4.44 M/ L 4.63-6.08 HEMOGLOBIN (BEAKER) (test leti=289) 14.4 GM/DL 13.7-17.5 HEMATOCRIT (BEAKER) (test aitt=877) 41.1 % 40.1-51.0 MEAN CORPUSCULAR VOLUME (BEAKER) (test xpew=154) 92.6 fL 79.0-92.2 MEAN CORPUSCULAR HEMOGLOBIN (BEAKER) (test 32.4 pg 25.7-32.2 oxlp=474) MEAN CORPUSCULAR HEMOGLOBIN CONC (BEAKER) (test 35.0 GM/DL 32.3-36.5 mzev=221) RED CELL DISTRIBUTION WIDTH (BEAKER) (test 12.9 % 11.6-14.4 ceqd=069) PLATELET COUNT (BEAKER) (test szec=628) 58 K/CU MM 150-450 MEAN PLATELET VOLUME (BEAKER) (test qehp=596) 11.3 fL 9.4-12.4 NUCLEATED RED BLOOD CELLS (BEAKER) (test 0 /100 WBC 0-0 jbhb=962) NEUTROPHILS RELATIVE PERCENT (BEAKER) (test 92 % ibev=510) LYMPHOCYTES RELATIVE PERCENT (BEAKER) (test 6 % wojr=547) MONOCYTES RELATIVE PERCENT (BEAKER) (test 2 % bcrl=274) EOSINOPHILS RELATIVE PERCENT (BEAKER) (test 0 % atcb=811) BASOPHILS RELATIVE PERCENT (BEAKER) (test 0 % gumk=885) NEUTROPHILS ABSOLUTE COUNT (BEAKER) (test 6.51 K/ L 1.78-5.38 kadg=292) LYMPHOCYTES ABSOLUTE COUNT (BEAKER) (test 0.40 K/ L 1.32-3.57 nqym=848) MONOCYTES ABSOLUTE COUNT (BEAKER) (test xixc=267) 0.14 K/ L 0.30-0.82 EOSINOPHILS ABSOLUTE COUNT (BEAKER) (test 0.00 K/ L 0.04-0.54 sqrx=271) BASOPHILS ABSOLUTE COUNT (BEAKER) (test iigu=526) 0.01 K/ L 0.01-0.08 IMMATURE GRANULOCYTES-RELATIVE PERCENT (BEAKER) 0 % 0-1 (test vpho=0350)
--- OUTSIDE RECORDS SUMMARY | 2018-02-05 17:25 | XMS REPORT | Continuity of Care Document ---
[...] Number For Provider Date Date Visit Outpatient [id number] CLARICE 11/[address] Outpatient [id number] CLARICE 12/19 [place] [id number] [place] Procedures Procedure Code Date Perfomer Comments Source
--- NOTE | 2018-02-05 18:30 | ER ---
Nurse's Notes [facility] Name: Xu Fulton Age: 82 yrs Sex: Male : 1935 Arrival Date: 02/05/2018 Time: 17:24 Bed 19 Private MD: JULIO KIM Diagnosis: Paracervical spinal abscess Presentation: 02/05 17:30 Presenting complaint: EMS states: pt reports having a follow up MRI after stem cell sg injections to correct disc issues in his neck, was instructed by his PCP in [facility] to please call 911 and go to the ER due to results of the MRI done today, and possible infection. Transition of care: patient was not received from another setting of care. Onset of symptoms was February 05, 2018. Risk Assessment: Do you want to hurt yourself or someone else? Patient reports no desire to harm self or others. Initial Sepsis Screen: Does the patient meet any 2 criteria? No. Patient's initial sepsis screen is negative. Does the patient have a suspected source of infection? No. Patient's initial sepsis screen is negative. Care prior to arrival: None. 17:30 Method Of Arrival: EMS: [facility] sg 17:30 Acuity: TEO 3 sg Historical: - Allergies: 17:27 No Known Allergies; tw2 - Home Meds: 17:27 tizanidine Oral [Active]; aspirin 81 mg Oral TbEC 1 tab once daily [Active]; tw2 Methylprednisolone Oral [Active]; tamsulosin 0.4 mg Oral cp24 1 cap once daily [Active]; Tylenol #3 Oral [Active]; - PMHx: 17:27 BPH; GERD; Myocardial infarction; tw2 - Immunization history:: Adult Immunizations. - Social history:: Smoking status: . - Ebola Screening: : Patient denies travel to an Ebola-affected area in the 21 days before illness onset. - Family history:: not pertinent. - Hospitalizations: : [facility]. Screenin:25 Abuse screen: Denies threats or abuse. Nutritional screening: No deficits noted. tw2 Tuberculosis screening: No symptoms or risk factors identified. Fall Risk None identified. Assessment: 17:30 General: Appears in no apparent distress. comfortable, well groomed, well developed, sg well nourished, Behavior is calm, cooperative, appropriate for age. Pain: Denies pain. Neuro: Level of Consciousness is awake, alert, obeys commands, Oriented to person, place, time, situation, Nurse Practitioner Per Diem are equal bilaterally Moves all extremities. Full function Gait is steady, Speech is normal, Facial symmetry appears normal, Pupils are PERRLA. Cardiovascular: Patient's skin is warm and dry. Chest pain is denied. Respiratory: Respiratory effort is even, unlabored, Respiratory pattern is regular, symmetrical. GI: No signs and/or symptoms were reported involving the gastrointestinal system. : No signs and/or symptoms were reported regarding the genitourinary system. EENT: No signs and/or symptoms were reported regarding the EENT system. Derm: Skin is pink, warm \T\ dry. Musculoskeletal: No deficits noted. Denies denies weakness, numbness, paresthesias at this time. 18:45 Reassessment: Patient appears in no apparent distress at this time. Patient and/or sg family updated on plan of care and expected duration. Pain level reassessed. Patient is alert, oriented x 3, equal unlabored respirations, skin warm/dry/pink. attempt to call report to [phone], spoke with [place], instructed to please call back, the nurses are in the middle of shift change at this time. 19:17 General: Appears in no apparent distress. comfortable, well groomed, well developed, ao well nourished, Behavior is calm, cooperative, appropriate for age. Pain: Denies pain. Neuro: Level of Consciousness is awake, alert, obeys commands, Oriented to person, place, time, situation, Moves all extremities. Full function Speech is normal, Facial symmetry appears normal, Pupils are PERRLA. Cardiovascular: Patient's skin is warm and dry. Chest pain is denied. Respiratory: Airway is patent Respiratory effort is even, unlabored, Respiratory pattern is regular, symmetrical. GI: No signs and/or symptoms were reported involving the gastrointestinal system. : No signs and/or symptoms were reported regarding the genitourinary system. EENT: No signs and/or symptoms were reported regarding the EENT system. Derm: Skin is pink, warm \T\ dry. normal, Skin temperature is warm. Musculoskeletal: No deficits noted. Swelling present in base of the skull. 19:33 Reassessment: Phone report called to Tato Abdi RN. Patient waiting on EMS ao transportation. Vital Signs: 17:24 BP 167 / 74; Pulse 92; Resp 16; Temp 99.5(O); Pulse Ox 96% on R/A; tw2 18:35 BP 133 / 65; Pulse 73 MON; Resp 17 S; Pulse Ox 98% on R/A; Pain 0/10; sg 19:09 BP 140 / 66; Pulse 81; Resp 17; Pulse Ox 96% on R/A; Pain 0/10; ao ED Course: 17:24 Patient arrived in ED. tw2 17:25 Bed in low position. Call light in reach. Adult w/ patient. secured entrance monitor on. Pulse tw2 ox on. NIBP on. 17:26 Arm band placed on. tw2 17:30 Alex Lawson, RN is Primary Nurse. sg 17:30 Initial lab(s) drawn, by me, held in ED. First set of blood cultures drawn by me, EKG sg done, by optical engineering technician. reviewed by Aren Puga MD. Inserted saline lock: 20 gauge in right antecubital area, using aseptic technique. Blood collected. 17:32 Triage completed. sg 17:38 OOT, OOT is Private Physician. 17:40 Brijesh Jarquin MD is Attending Physician. ms 17:45 EKG done, by optical engineering technician. reviewed by Aren Puga MD. sm3 18:25 Andreia cervical collar applied and checked by physician. sg 20:27 No provider procedures requiring assistance completed. Patient did not have IV access ao during this emergency room visit. Administered Medications: No medications were administered Outcome: 18:30 ER care complete, transfer ordered by . ms 20:27 Transferred by ground EMS to [facility], Transfer form completed. ao 20:27 Condition: stable 20:27 Instructed on the need for transfer. 20:28 Patient left the ED. ao Signatures: Alex Lawson, RN Collin White RN RN ao Wise, Tara, RN RN 2 Brijesh Jarquin MD MD wa Montes, Shakira 3
--- NOTE | 2018-02-05 18:30 | EDPHYS ---
Physician Documentation [facility] Name: Xu Fulton Age: 82 yrs Sex: Male : 1935 Arrival Date: 02/05/2018 Time: 17:24 Bed 19 Private MD: JULIO KIM ED Physician Brijesh Jarquin HPI: 02/05 18:16 This 82 yrs old Male presents to ER via EMS with complaints of Abnormal Lab wa Results - Abnormal MRI results 02/05/18. 18:16 per pt and , called to return immediately to hospital as he had an MRI result that wa was abnormal. states called to return by Dr. Vora. pt states had a stem cell injection int he neck on 12/19 and subsequently developed an infection around the spine. was admitted at [facility] for 15 days. today had f/u study with the above concern. per , unable to drive pt to [place] so they called 911 and came here. . Onset: The symptoms/episode began/occurred today. Severity of symptoms: in the emergency department the symptoms denies pain at rest. denies fever or chills. states feels mild pain in the neck with movement. The patient has experienced a previous episode. The patient has been recently seen by a physician: admitted, as stated above. Historical: - Allergies: 17:27 No Known Allergies; tw2 - Home Meds: 17:27 tizanidine Oral [Active]; aspirin 81 mg Oral TbEC 1 tab once daily [Active]; tw2 Methylprednisolone Oral [Active]; tamsulosin 0.4 mg Oral cp24 1 cap once daily [Active]; Tylenol #3 Oral [Active]; - PMHx: 17:27 BPH; GERD; Myocardial infarction; tw2 - Immunization history:: Adult Immunizations. - Social history:: Smoking status: . - Ebola Screening: : Patient denies travel to an Ebola-affected area in the 21 days before illness onset. - Family history:: not pertinent. - Hospitalizations: : [facility] ROS: 18:21 Constitutional: Negative for fever, chills, and weight loss, Eyes: Negative for injury, wa pain, redness, and discharge, ENT: Negative for injury, pain, and discharge, Cardiovascular: Negative for chest pain, palpitations, and edema, Respiratory: Negative for shortness of breath, cough, wheezing, and pleuritic chest pain, Abdomen/GI: Negative for abdominal pain, nausea, vomiting, diarrhea, and constipation, Back: Negative for injury and pain, : Negative for injury, bleeding, discharge, and swelling, MS/Extremity: Negative for injury and deformity, Skin: Negative for injury, rash, and discoloration, Psych: Negative for depression, anxiety, suicide ideation, homicidal ideation, and hallucinations. 18:21 Neck: Positive for pain with movement, Negative for stiffness, swelling. 18:21 Neuro: Negative for altered mental status, dizziness, gait disturbance, headache. Exam: 18:21 Constitutional: This is a well developed, well nourished patient who is awake, alert, wa and in no acute distress. Head/Face: Normocephalic, atraumatic. Eyes: Pupils equal round and reactive to light, extra-ocular motions intact. Lids and lashes normal. Conjunctiva and sclera are non-icteric and not injected. Cornea within normal limits. Periorbital areas with no swelling, redness, or edema. ENT: Nares patent. No nasal discharge, no septal abnormalities noted. Tympanic membranes are normal and external auditory canals are clear. Oropharynx with no redness, swelling, or masses, exudates, or evidence of obstruction, uvula midline. Mucous membranes moist. Cardiovascular: Regular rate and rhythm with a normal S1 and S2. No gallops, murmurs, or rubs. Normal PMI, no JVD. No pulse deficits. Respiratory: Lungs have equal breath sounds bilaterally, clear to auscultation and percussion. No rales, rhonchi or wheezes noted. No increased work of breathing, no retractions or nasal flaring. Abdomen/GI: Soft, non-tender, with normal bowel sounds. No distension or tympany. No guarding or rebound. No evidence of tenderness throughout. Back: No spinal tenderness. No costovertebral tenderness. Full range of motion. Skin: Warm, dry with normal turgor. Normal color with no rashes, no lesions, and no evidence of cellulitis. MS/ Extremity: Pulses equal, no cyanosis. Neurovascular intact. Full, normal range of motion. Neuro: Awake and alert, GCS 15, oriented to person, place, time, and situation. Cranial nerves II-XII grossly intact. Motor strength 5/5 in all extremities. Sensory grossly intact. Cerebellar exam normal. Normal gait. Psych: Awake, alert, with orientation to person, place and time. Behavior, mood, and affect are within normal limits. 18:21 Neck: External neck: is normal, Trachea: is midline with no obvious abnormalities, ROM/movement: pain, that is mild. Vital Signs: 17:24 BP 167 / 74; Pulse 92; Resp 16; Temp 99.5(O); Pulse Ox 96% on R/A; tw2 18:35 BP 133 / 65; Pulse 73 MON; Resp 17 S; Pulse Ox 98% on R/A; Pain 0/10; sg 19:09 BP 140 / 66; Pulse 81; Resp 17; Pulse Ox 96% on R/A; Pain 0/10; ao MDM: 17:40 Patient medically screened. ga 18:24 Differential Diagnosis upon further investigation, pt's MRI showed worsening soft wa tissue infection with potential bony involvement. called by [facility] Dr. Vora to return for admit. came here as cannot drive to [facility]. will transfer via ambulance. pt accepted by Dr. Thomas at [facility]. they advised to place pt in a collar. Data reviewed: vital signs, nurses notes. 18:28 Physician consultation:. ga 02/05 17:54 Order name: EKG Electrocardiogram EDMS Administered Medications: No medications were administered Disposition: 02/05/18 18:30 Transfer ordered to [facility]. Diagnosis is Paracervical spinal abscess. - Reason for transfer: Higher level of care. - Accepting physician is Dr. Thomas - [facility]. - Condition is Stable. - Problem is an ongoing problem. - Symptoms are unchanged. Signatures: Dispatcher [employer] EDMS Collin Bell RN RN Rosario Boggs RN RN tw2 Brijesh Jarquin MD MD wa Corrections: (The following items were deleted from the chart) 20:28 18:30 02/05/2018 18:30 Transfer ordered to [facility]. Diagnosis is ao Paracervical spinal abscess. Reason for transfer: Higher level of care. Accepting physician is Dr. William Olivera Too sarahfrank. Condition is Stable. Problem is an ongoing problem. Symptoms are unchanged. wa
--- NOTE | 2018-02-06 07:49 | EKG ---
Test Date: 2018-02-05 Test Time: 17:28:55 Weed Thinner: GINO MEASUREMENT RESULTS: Intervals: Rate: 82 AR: 174 QRSD: 106 QT: 380 QTc: 443 Kathleen: P: 58 AR: 174 QRS: -16 T: 81 INTERPRETIVE STATEMENTS: Sinus rhythm with occasional premature ventricular complexes Otherwise normal ECG Compared to ECG 12/22/2017 02:11:48 Ventricular premature complex(es) now present Sinus tachycardia no longer present Incomplete right bundle-branch block no longer present ST (T wave) deviation no longer present Possible ischemia no longer present Electronically Signed On 02-06-18 07:48:27 CDT by Khoa Borges
== END 2018-02-05 20:28 | disposition short-term general hospital (02) ==
LOC: ER 17:21
DX: G06.1 Intraspinal abscess and granuloma (principal); N40.0 Benign prostatic hyperplasia without lower urinary tract symptoms; I25.2 Old myocardial infarction
CPT/HCPCS: 93005; 99285

== ENCOUNTER 2020-12-11 17:31 | Observation (INO) | payer OTHER ==
--- OUTSIDE RECORDS SUMMARY | 2020-12-11 17:36 | XMS REPORT | Continuity of Care Document ---
:1935 Author Organization [facility] t Address [address] [place] [address] Care Team Providers Name Role Phone Jeri Ruano Primary Care Physician Brijesh Sky Attending Clinician Kaylee PAL Attending Clinician VALE Attending Clinician Unavailable ITZ BERMUDEZ Attending Clinician Unavailable Karri AUSTIN Attending Clinician Unavailable MARLON DAVIDSON Attending Clinician Unavailable ITZ BERMUDEZ Admitting Clinician Unavailable MARLON DAVIDSON Admitting Clinician Unavailable Problems Condition Condition Condition Status Onset Resolution Last Treating Co mments Source Name Details Category Date Date Treatment Clinician Date Diskitis Diskitis Disease [facility] Bacteremia Bacteremia Disease Active 2017-[address] due to due to 0-23 [facility] - Enterobact Enterobact 00:00: Me dical er species er species 00 Ce nter Neck pain, Neck pain, Disease Active [facility] chronic chronic 9[facility]24 [facility] CAD CAD Disease Active [facility] ([facility]on[facility] (coronary 9-15 [facility] - artery artery 00:00: Medical disease) disease) 00 Center GERD GERD Disease Active [facility] (gastroeso (gastroeso 9-15 Cori kes - phageal phageal 00:00: Medical reflux reflux 00 Center disease) disease) Sepsis Sepsis Disease Active [facility] Altered Altered Disease Active [facility] mental mental 15 [facility] - state state 00:00: Medical 00 Center Elevated Elevated Disease Active [facility] troponin trop[facility] - [facility] [place] Hypophosph Hypophosph Disease Active [facility] atemia atemia 15 [facility] - 00:[facility]: Medical 00 [place] NSTEMI NSTEMI Disease Active [facility] (non-ST (non-ST 15 [facility] - elevated elevated 00:00: Medica l myocardial myocardial 00 Ce nter infarction infarction ) ) Fever Fever Disease Active [facility] BPH BPH Disease Active [facility] (benign (benign 15 [facility] - prostatic prostatic 00:00: Medi yesika hyperplasi hyperplasi 00 Ce nter a) a) Cervical Problem Active 2020-11-22 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 Social History Social Habit Start Date Stop Date Quantity Comments Source Sex Assigned At [facility] Social History 2020-11-19 2020-11-19 [facility] ermann 19:32:51 19:32:51 Tobacco use and 2018-02-05 2018-02-05 Never used MORTEZA Angulos - exposure 00:00:00 00:00:00 [facility] Alcohol intake 2018-02-05 2018-02-05 Current drinker of WILLIE Guy - 00:00:00 00:00:00 alcohol (finding) [facility] Alcohol Comment 2017-12-22 2017-12-22 not weekly; very MORTEZA Guy - [facility] Start Date Stop Date Source Never smoker MORTEZA Guy [facility] Medications Ordered Filled Start Stop Current Ordering Indication Dosage Frequency Signature Comments Components Source Medication Medication Date Date Medication? Clinician (SIG) Name Name Vitamin C Yes Daily, 0 [place] 8-13 Refill(s) l 19:41: [place] 00 Prevagen Yes 50 Memoria 8-13 microgram, l 19:41: PO, Daily, [place] 00 0 Refill(s) biotin 0 Yes PO, Daily, Memor ia 8-13 0 l 19:41: Refill(s) [place] 00 Zinc Yes 140 mg, Memoria 8-13 PO, Daily, l 19:41: 0 [place] 00 Refill(s) Vitamin D3 Yes 0 Memoria 8-13 Refill(s) l 19:40: [place] 00 pantoprazol Yes 40 mg, PO, Memoria e 8-13 Daily, # l 19:39: 30 tab, 0 [place] 00 Refill(s) Hydroxychlo Yes 200 mg = 1 Memoria roquine 8-13 tab, PO, l Sulfate 200 19:39: Daily, 0 He rmann MG Oral 00 Refill(s) Tablet levocetiriz Yes 5 mg = 1 Me moria ine 5 mg 8-13 tab, PO, l oral tablet 19:38: QPM, 0 Herm tariq 00 Refill(s) silodosin 4 Yes 4 mg = 1 Me moria mg oral 8-13 cap, PO, l capsule 19:38: Daily, 0 Joni n 00 Refill(s) Thyroxine Yes 25 mg, Memori a 8-13 Daily, 0 l 19:37: Refill(s) [place] 00 Famotidine Yes 20 mg = 1 Me moria 8-13 tab, PO, l 19:36: BID, # 60 [place] 00 tab, 0 Refill(s) finasteride Yes 5 mg = 1 Me moria 5 mg oral 8-13 tab, PO, l tablet 19:36: Daily, 0 [place] 00 Refill(s) tamsulosin 2017-04 Yes .4mg QD Take 0.[address] [facility] (FLOMAX) 0-31 mg by [facility] - 0.4 mg Cap 17:33: mouth Medica l 24 hr 23 daily. Center capsule finasteride Yes 5mg QD Take [address] [facility] (PROSCAR) 5 9-25 tablet (5 Danisha es - mg tablet 00:00: mg total) Med ical 00 by mouth Center daily. TiZANidine Yes muscle 4mg Take [address] [facility] [facility] (ZANAFLEX) 9-24 spasm capsule (4 Cori kes - 4 MG 00:00: mg total) Medical capsule 00 by mouth 3 Center (three) times daily as needed for Muscle spasms. Immunizations Ordered Immunization Filled Immunization Date Status Commen ts Source Name Name Influenza High Dose 2018-02-06 [facility]:00:00 [facility] ([id number]) Vital Signs Vital Name Observation Time Observation Value Comments Source Systolic (mm Hg) 2020-11-19 19:22:00 [place] [facility] Diastolic (mm Hg) 2020-11-19 19:22:00 [facility] orial [place] Heart Rate 2020-11-19 19:22:00 [facility] Respitory Rate 2020-11-19 19:22:00 Mandi Nath Height 2020-11-19 19:22:00 165.1 cm [facility] Weight 2020-11-19 19:22:00 [facility] BMI Calculated 2020-11-19 19:22:00 Mandi Nath Procedures Procedure Date / Time Performing Clinician Source Performed Coronary bypass graft [facility] angiography Cholecystectomy [facility] Plan of Care Planned Activity Planned Date Details Comments Source Future Scheduled 2020-12-[address] [facility] - Test 00:00:00 (Season Ended) [code = Medic al Center INFLUENZA VACCINE (Season Ended)] Future Scheduled 2020-04-[address] [facility] - Test 00:00:00 (12+) [code = Medical Center DEPRESSION SCREENING (12+)] Future Scheduled 2018-04-[address] [facility] - Test 00:00:00 WELLNESS (YEAR 2 or Medical Center FIRST YEAR if no IPPE) [code = MEDICARE ANNUAL WELLNESS (YEAR 2 or FIRST YEAR if no IPPE)] Future Scheduled 2000 PNEUMOCOCCAL 65+ [facility]RS [facility] - Test 00:00:00 (1 of 1 - Medical Center [id number]) [code = PNEUMOCOCCAL 65+ YRS (1 of 1 - [id number] PCV13)] Future Scheduled 1985 SHINGLES VACCINES ([address] [facility] - Test 00:00:00 of 2) [code = SHINGLES Medic al Center VACCINES (1 of 2)] Future Scheduled 1954 DTAP/TDAP/TD VACCINES [facility] Test 00:00:00 (1 - Tdap) [code = Medical C enter DTAP/TDAP/TD VACCINES (1 - Tdap)] Encounters Start End Encounter Admission Attending Care Care Encounter Source Date/Time Date/Time Type Type Clinicians Facility Department ID 2020-12-24 2020-12-24 Outpatient MHIE JACOB [id number] Memoria 13:15:00 13:15:00 04 aundrea Buenrostro 2020-11-19 2020-11-20 Outpatient nullFlavo MNA [id number] Memoria 19:00:00 04:59:59 r Neurology 03 aundrea Buenrostro 2020-11-19 2020-11-19 Outpatient Jose Daniel [facility] [id number] 14:00:00 23:59:59 Mylse Coley 2020-11-19 2020-11-19 Outpatient MHIE PAMIE [id number] Memoria 14:00:00 14:00:00 03 aundrea Buenrostro 2018-07-31 2018-08-02 Outside nullFlavo MNA [id number] Memoria 18:51:00 04:59:59 Medical r Neurology 01 l Records Jean Paul Buenrostro 2018-07-31 2018-08-01 Outpatient MHMISCHER MHMISCHER [id number] 13:51:00 23:59:59 2018-07-31 2018-08-01 Outpatient MHMISCHER MHMISCHER [id number] 13:51:00 23:59:59 2018-03-13 2018-03-13 Office ASHER Page [id number] 10:00:00 11:00:00 Visit Shana AMBULATOR [id number] Y [id number] 2018-01-10 2018-01-12 Outside nullFlavo MNA [id number] Memoria 23:06:00 04:59:59 Medical r Neurology 00 l Records Jean Paul Buenrostro 2018-01-10 2018-01-11 Outpatient MHMISCHER MHMISCHER [id number] 18:06:00 23:59:59 00 2017-12-19 2017-12-19 Outpatient MHIE MHIE [id number] Memoria 14:00:00 14:00:00 02 aundrea Buenrostro 2017-11-09 2017-11-09 Outpatient MHIE MHIE [id number] Memoria 15:30:00 15:30:00 01 aundrea Buenrostro Results Test Description Test Time Test Comments Results Result Sour e Comments MR, SPINE, 2018-03-11 FINAL REPORT PATIENT CERVICAL, WITH 16:21:00 ID: [id number] MR Cervical spine with and without contrast. CLINICAL HISTORY: CERVICAL DISCITIS TECHNIQUE: MRI of the cervical spine utilizing sagittal T1, T2, STIR, axial T1, T2; and postgadolinium axial and sagittal T1-weighted images. COMPARISON: Cervical MRI 02/05/2018 FINDINGS: Enhancing cervical marrow edema changes involving the C5, C6, and C7 vertebral bodies have decreased in prominence. Prevertebral enhancing edema changes have also decreased. There is no evidence for prevertebral fluid collection. Slightly prominent ventral and dorsal epidural enhancement in the central canal from approximately C4-C6 has decreased in prominence.There is no abnormal cervical cord signal. The cervical vertebral body heights are preserved. There is straightening of the cervical curvature with maintained alignment. At C2-C3, there is a 3 mm central disc protrusion with ligamentum flavum hypertrophy resulting in mild to moderate central canal stenosis contacting the cord. Uncovertebral and facet arthrosis results in moderate right and mild left foraminal stenosis. At C3-C4, there is a 3 mm central disc protrusion with mild central canal stenosis. Uncovertebral and facet arthrosis results in severe bilateral foraminal stenosis. At C4-C5, there is a broad-based disc osteophyte complex with ligamentum flavum hypertrophy resulting in severe central canal stenosis contouring the cord. Uncovertebral and facet arthrosis results in severe bilateral foraminal stenosis. At C5-C6, there is a broad-based disc osteophyte complex with ligamentum flavum hypertrophy resulting in severe central canal stenosis contouring the cord. Uncovertebral and facet arthrosis results in severe bilateral foraminal stenosis. At C6-C7, there is a broad-based disc osteophyte complex with mild to moderate central canal stenosis contacting the cord. Uncovertebral and facet arthrosis results in moderate right greater than left foraminal stenosis. At C7-T1, there is a mild disc bulge without significant central canal stenosis. Uncovertebral and facet arthrosis results in mild to moderate bilateral foraminal stenosis. IMPRESSION: Since 01/29/2018, overall improvement in changes compatible with cervical discitis osteomyelitis, prevertebral cellulitis, and epidural infection. Signed: Anna Mason MDReport Verified Date/Time: 03/11/2018 16:21:51 Reading Location: [address] Neuro Reading Room -CREATININE 2018-03-11 14:18:00 Test Item Value Reference Range Interpretation Comme [facility] POC-CREATININE ([email or web address]) (test 1.0 mg/dL 0.6-1.3 TESTED AT [facility] 2457 code = 1859) [facility] [address] POC-EGFR ([email or web address]) (test code = 72 mL/min/1.73M2 1860) BLOOD [id number] 05:00:00 Test Item Value Reference Range Interpretation Comments CULTURE ([email or web address]) (test No growth in 5 days code = 1095) C-REACTIVE [id number] 16:02:00 Test Item Value Reference Range Interpretation Comments C-REACTIVE PROTEIN ([employer]) (test 0.09 mg/dL 0.00-0.50 code = 676) URINALYSIS WITH MICROSCOPIC IF [id number] 00:45:00 Test Item Value Reference Range Interpretation Comments COLOR (BEAKER) (test code = 470) Light Yellow CLARITY (BEAKER) (test code = Hazy 469) SPECIFIC GRAVITY UA (BEAKER) 1.011 1.001-1.035 (test code = 468) PH UA (BEAKER) (test code = 467) 6.5 5.0-8.0 PROTEIN UA (BEAKER) (test code = Negative Negative 464) GLUCOSE UA (BEAKER) (test code = Negative Negative 365) KETONES UA (BEAKER) (test code = Negative Negative 371) BILIRUBIN UA (BEAKER) (test code Negative Negative = 462) BLOOD UA (BEAKER) (test code = Negative Negative 461) NITRITE UA (BEAKER) (test code = Negative Negative 465) LEUKOCYTE ESTERASE UA (BEAKER) Large Negative A (test code = 466) UROBILINOGEN UA (BEAKER) (test 0.2 mg/dL 0.2-1.0 code = 463) SOURCE(BEAKER) (test code = 2795) URINALYSIS [id number] 00:45:00 Test Item Value Reference Range Interpretation Comments RBC UA (BEAKER) (test code = 519) 3 /HPF WBC UA (BEAKER) (test code = 520) > /HPF MUCUS (BEAKER) (test code = 1574) Rare COMPREHENSIVE METABOLIC [id number] 23:49:00 Test Item Value Reference Range Interpretation Comments TOTAL PROTEIN 6.9 gm/dL 6.0-8.3 Specimen sligh tly (BEAKER) (test code = hemoly zed 770) ALBUMIN (BEAKER) 3.9 g/dL 3.5-5.0 Specimen sl ightly (test code = 1145) hemolyzed ALKALINE PHOSPHATASE 64 U/L 40-150 (BEAKER) (test code = 346) BILIRUBIN TOTAL 0.4 mg/dL 0.2-1.2 Specimen sli ghtly (BEAKER) (test code = hemoly zed 377) SODIUM (BEAKER) (test 139 meq/L 136-145 code = 381) POTASSIUM (BEAKER) 3.6 meq/L 3.5-5.1 Specimen slightly (test code = 379) hemolyzed CHLORIDE (BEAKER) 109 meq/L 98-107 H (test code = 382) CO2 (BEAKER) (test 21 meq/L 22-29 L code = 355) BLOOD UREA NITROGEN 16 mg/dL 7-21 (BEAKER) (test code = 354) CREATININE (BEAKER) 0.81 mg/dL 0.57-1.25 Specimen slightly (test code = 358) hemolyzed GLUCOSE RANDOM 98 mg/dL 70-105 (BEAKER) (test code = 652) CALCIUM (BEAKER) 9.3 mg/dL 8.4-10.2 (test code = 697) AST (SGOT) (BEAKER) 22 U/L 5-34 Specimen slightly (test code = 353) hemolyzed ALT (SGPT) (BEAKER) 20 U/L 6-55 Specimen slightly (test code = 347) hemolyzed EGFR (BEAKER) (test 91 mL/min/1.73 ESTIMA BUTCH GFR IS code = 1092) sq m NOT ACCURATE CREATININE CLEARANCE IN PREDICTING GLOMERULAR FILTRATION RATE . ESTIMATED GFR I S NOT APPLICABLE FOR DIALYSIS PATIEN TS. CBC W/PLT COUNT & AUTO [id number] 23:21:00 Test Item Value Reference Range Interpretation Comments WHITE BLOOD CELL COUNT (BEAKER) 7.4 K/ L 3.5-10.5 (test code = 775) RED BLOOD CELL COUNT (BEAKER) 4.28 M/ L 4.63-6.08 L (test code = 761) HEMOGLOBIN (BEAKER) (test code = 13.7 GM/DL 13.7-17.5 410) HEMATOCRIT (BEAKER) (test code = 39.4 % 40.1-51.0 L 411) MEAN CORPUSCULAR VOLUME (BEAKER) 92.1 fL 79.0-92.2 (test code = 753) MEAN CORPUSCULAR HEMOGLOBIN 32.0 pg 25.7-32.2 (BEAKER) (test code = 751) MEAN CORPUSCULAR HEMOGLOBIN CONC 34.8 GM/DL 32.3-36.5 (BEAKER) (test code = 752) RED CELL DISTRIBUTION WIDTH 13.4 % 11.6-14.4 (BEAKER) (test code = 412) PLATELET COUNT (BEAKER) (test 144 K/CU MM 150-450 L code = 756) MEAN PLATELET VOLUME (BEAKER) 11.1 fL 9.4-12.4 (test code = 754) NUCLEATED RED BLOOD CELLS 0 /100 WBC 0-0 (BEAKER) (test code = 413) NEUTROPHILS RELATIVE PERCENT 70 % (BEAKER) (test code = 429) LYMPHOCYTES RELATIVE PERCENT 22 % (BEAKER) (test code = 430) MONOCYTES RELATIVE PERCENT 6 % (BEAKER) (test code = 431) EOSINOPHILS RELATIVE PERCENT 1 % (BEAKER) (test code = 432) BASOPHILS RELATIVE PERCENT 1 % (BEAKER) (test code = 437) NEUTROPHILS ABSOLUTE COUNT 5.21 K/ L 1.78-5.38 (BEAKER) (test code = 670) LYMPHOCYTES ABSOLUTE COUNT 1.59 K/ L 1.32-3.57 (BEAKER) (test code = 414) MONOCYTES ABSOLUTE COUNT (BEAKER) 0.46 K/ L 0.30-0.82 (test code = 415) EOSINOPHILS ABSOLUTE COUNT 0.08 K/ L 0.04-0.54 (BEAKER) (test code = 416) BASOPHILS ABSOLUTE COUNT (BEAKER) 0.05 K/ L 0.01-0.08 (test code = 417) IMMATURE GRANULOCYTES-RELATIVE 0 % 0-1 PERCENT (BEAKER) (test code = 2801) MR, SPINE, CERVICAL, [id number] 15:41:00FINAL REPORT MRI of the cervical spine pre [...] infection to involve the disc space. Endplate ir regularities of the lower aspect of C4 noted. [...] epidural infection all generally worse since the previousMRI. No discrete abscess at this time. There is central canal stenosis as discussed. Signed: Jody Hdz Verified Date/Time: 02/05/2018 15:41:32 Reading Location: [facility] C013V Neuro Reading Room [id number] 12:11:00 Test Item Value Reference Range Interpretation Comments POC-CREATININE 0.9 mg/dL 0.6-1.3 TESTED AT [facility] 6720 ([facility] (test [place] code = 1859) [address] POC-EGFR ([facility] 81 mL/min/1.73M2 (test code = 1860) BLOOD [id number] 11:00:00 Test Item Value Reference Range Interpretation Comments CULTURE (BEAKER) (test No growth in 5 days code = 1095) BLOOD [id number] 11:00:00 Test Item Value Reference Range Interpretation Comments CULTURE (BEAKER) (test No growth in 5 days code = 1095) POCT-GLUCOSE [id number] 08:25:00 Test Item Value Reference Range Interpretation Comments POC-GLUCOSE METER 158 mg/dL 70-110 H TESTED AT [place] [address] ([facility] (test code = DANIELLA [place] 1538) [address] CBC (HEMOGRAM ONLY)2017-12-31 06:44:00 Test Item Value Reference Range Interpretation Comments WHITE BLOOD CELL COUNT ([facility] 10.0 K/ L 3.5-10.5 (test code = 775) RED BLOOD CELL COUNT (AKER) 4.33 M/ L 4.63-6.08 L (test code = 761) HEMOGLOBIN (BEAKER) (test code = 13.7 GM/DL 13.7-17.5 410) HEMATOCRIT ([facility] (test code = 39.6 % 40.1-51.0 L 411) MEAN CORPUSCULAR VOLUME (BEAKER) 91.5 fL 79.0-92.2 (test code = 753) MEAN CORPUSCULAR HEMOGLOBIN 31.6 pg 25.7-32.2 (BEAKER) (test code = 751) MEAN CORPUSCULAR HEMOGLOBIN CONC 34.6 GM/DL 32.3-36.5 (BEAKER) (test code = 752) RED CELL DISTRIBUTION WIDTH 12.8 % 11.6-14.4 (BEAKER) (test code = 412) PLATELET COUNT (BEAKER) (test 330 K/CU MM 150-450 code = 756) MEAN PLATELET VOLUME (BEAKER) 9.8 fL 9.4-12.4 (test code = 754) NUCLEATED RED BLOOD CELLS 0 /100 WBC 0-0 (BEAKER) (test code = 413) BASIC METABOLIC [id number] 06:02:00 Test Item Value Reference Range Interpretation Comments SODIUM (BEAKER) 131 meq/L 136-145 L (test code = 381) POTASSIUM (BEAKER) 5.1 meq/L 3.5-5.1 (test code = 379) CHLORIDE (BEAKER) 100 meq/L 98-107 (test code = 382) CO2 (BEAKER) (test 25 meq/L 22-29 code = 355) BLOOD UREA NITROGEN 18 mg/dL 7-21 (BEAKER) (test code = 354) CREATININE (BEAKER) 0.80 mg/dL 0.57-1.25 (test code = 358) GLUCOSE RANDOM 117 mg/dL 70-105 H (BEAKER) (test code = 652) CALCIUM (BEAKER) 9.3 mg/dL 8.4-10.2 (test code = 697) EGFR (BEAKER) (test mL/min/1.73 INSUFFIC IENT CLINICAL code = 1092) sq m DATA TO CALCULA TE ESTIMATED GFR. CBC (HEMOGRAM ONLY)2017-12-30 04:30:00 Test Item Value Reference Range Interpretation Comments WHITE BLOOD CELL COUNT (BEAKER) 10.4 K/ L 3.5-10.5 (test code = 775) RED BLOOD CELL COUNT (BEAKER) 4.27 M/ L 4.63-6.08 L (test code = 761) HEMOGLOBIN (BEAKER) (test code = 13.5 GM/DL 13.7-17.5 L 410) HEMATOCRIT (BEAKER) (test code = 38.8 % 40.1-51.0 L 411) MEAN CORPUSCULAR VOLUME (BEAKER) 90.9 fL 79.0-92.2 (test code = 753) MEAN CORPUSCULAR HEMOGLOBIN 31.6 pg 25.7-32.2 (BEAKER) (test code = 751) MEAN CORPUSCULAR HEMOGLOBIN CONC 34.8 GM/DL 32.3-36.5 (BEAKER) (test code = 752) RED CELL DISTRIBUTION WIDTH 12.9 % 11.6-14.4 (BEAKER) (test code = 412) PLATELET COUNT (BEAKER) (test 284 K/CU MM 150-450 code = 756) MEAN PLATELET VOLUME (BEAKER) 9.8 fL 9.4-12.4 (test code = 754) NUCLEATED RED BLOOD CELLS 0 /100 WBC 0-0 (BEAKER) (test code = 413) U/S, RENAL, [id number] 16:24:00Reason for exam:->hematuriaFINAL REPORT RENAL ULTRASOUND HISTORY: [...] right kidney. 2. Left kidney absent. Signed: uRt Liu Verified Date/Time: 12/29/2017 16:24:31 Reading Location: [address] ReadingRoom BLOOD [id number] 12:00:00 Test Item Value Reference Range Interpretation Comments CULTURE (BEAKER) (test No growth in 5 days code = 1095) BLOOD [id number] 10:48:00 Test Item Value Reference Range Interpretation Comments CULTURE A From Anaerobic Bottle (BEAKER) (test Only Same org anism has code = 1095) been isolated f rom cultures(s) of the same body site within 3 days. Repeat identification and susceptibility testing performed only after consultation wi the clinical microb iology laboratory.Refe r to previous cultur e of* - Enterobacter cl oacae complex GRAM STAIN From anaerobic RESULT (BEAKER) bottle only: gram (test code = negative rods 1123) BASIC METABOLIC [id number] 07:16:00 Test Item Value Reference Range Interpretation Comments SODIUM (BEAKER) 130 meq/L 136-145 L (test code = 381) POTASSIUM (BEAKER) 4.3 meq/L 3.5-5.1 (test code = 379) CHLORIDE (BEAKER) 99 meq/L 98-107 (test code = 382) CO2 (BEAKER) (test 24 meq/L 22-29 code = 355) BLOOD UREA NITROGEN 22 mg/dL 7-21 H (BEAKER) (test code = 354) CREATININE (BEAKER) 0.77 mg/dL 0.57-1.25 (test code = 358) GLUCOSE RANDOM 100 mg/dL 70-105 (BEAKER) (test code = 652) CALCIUM (BEAKER) 8.6 mg/dL 8.4-10.2 (test code = 697) EGFR (BEAKER) (test mL/min/1.73 INSUFFIC IENT CLINICAL code = 1092) sq m DATA TO CALCULA TE ESTIMATED GFR. CBC (HEMOGRAM ONLY)2017-12-29 05:24:00 Test Item Value Reference Range Interpretation Comments WHITE BLOOD CELL COUNT (BEAKER) 9.4 K/ L 3.5-10.5 (test code = 775) RED BLOOD CELL COUNT (BEAKER) 4.22 M/ L 4.63-6.08 L (test code = 761) HEMOGLOBIN (BEAKER) (test code = 13.3 GM/DL 13.7-17.5 L 410) HEMATOCRIT (BEAKER) (test code = 37.7 % 40.1-51.0 L 411) MEAN CORPUSCULAR VOLUME (BEAKER) 89.3 fL 79.0-92.2 (test code = 753) MEAN CORPUSCULAR HEMOGLOBIN 31.5 pg 25.7-32.2 (BEAKER) (test code = 751) MEAN CORPUSCULAR HEMOGLOBIN CONC 35.3 GM/DL 32.3-36.5 (BEAKER) (test code = 752) RED CELL DISTRIBUTION WIDTH 12.8 % 11.6-14.4 (BEAKER) (test code = 412) PLATELET COUNT (BEAKER) (test 235 K/CU MM 150-450 code = 756) MEAN PLATELET VOLUME (BEAKER) 10.3 fL 9.4-12.4 (test code = 754) NUCLEATED RED BLOOD CELLS 0 /100 WBC 0-0 (BEAKER) (test code = 413) URINALYSIS W/ REFLEX URINE [id number] 18:27:00 Test Item Value Reference Range Interpretation Comments COLOR (BEAKER) (test code = 470) Yellow CLARITY (BEAKER) (test code = 469) Clear SPECIFIC GRAVITY UA (BEAKER) (test 1.012 1.001-1.035 code = 468) PH UA (BEAKER) (test code = 467) 6.5 5.0-8.0 PROTEIN UA (BEAKER) (test code = Negative Negative 464) GLUCOSE UA (BEAKER) (test code = Negative Negative 365) KETONES UA (BEAKER) (test code = Negative Negative 371) BILIRUBIN UA (BEAKER) (test code = Negative Negative 462) BLOOD UA (BEAKER) (test code = 461) Moderate Negative A NITRITE UA (BEAKER) (test code = Negative Negative 465) LEUKOCYTE ESTERASE UA (BEAKER) Negative Negative (test code = 466) UROBILINOGEN UA (BEAKER) (test code 2.0 mg/dL 0.2-1.0 H = 463) RBC UA (BEAKER) (test code = 519) 31 /HPF WBC UA (BEAKER) (test code = 520) 1 /HPF MUCUS (BEAKER) (test code = 1574) Rare SOURCE(BEAKER) (test code = 2795) BASIC METABOLIC [id number] 06:04:00 Test Item Value Reference Range Interpretation Comments SODIUM (BEAKER) 131 meq/L 136-145 L (test code = 381) POTASSIUM (BEAKER) 4.0 meq/L 3.5-5.1 (test code = 379) CHLORIDE (BEAKER) 101 meq/L 98-107 (test code = 382) CO2 (BEAKER) (test 24 meq/L 22-29 code = 355) BLOOD UREA NITROGEN 23 mg/dL 7-21 H (BEAKER) (test code = 354) CREATININE (BEAKER) 0.79 mg/dL 0.57-1.25 (test code = 358) GLUCOSE RANDOM 113 mg/dL 70-105 H (BEAKER) (test code = 652) CALCIUM (BEAKER) 8.5 mg/dL 8.4-10.2 (test code = 697) EGFR (BEAKER) (test mL/min/1.73 INSUFFIC IENT CLINICAL code = 1092) sq m DATA TO CALCULA TE ESTIMATED GFR. CBC (HEMOGRAM ONLY)2017-12-28 05:26:00 Test Item Value Reference Range Interpretation Comments WHITE BLOOD CELL COUNT (BEAKER) 9.2 K/ L 3.5-10.5 (test code = 775) RED BLOOD CELL COUNT (BEAKER) 4.02 M/ L 4.63-6.08 L (test code = 761) HEMOGLOBIN (BEAKER) (test code = 12.7 GM/DL 13.7-17.5 L 410) HEMATOCRIT (BEAKER) (test code = 35.9 % 40.1-51.0 L 411) MEAN CORPUSCULAR VOLUME (BEAKER) 89.3 fL 79.0-92.2 (test code = 753) MEAN CORPUSCULAR HEMOGLOBIN 31.6 pg 25.7-32.2 (BEAKER) (test code = 751) MEAN CORPUSCULAR HEMOGLOBIN CONC 35.4 GM/DL 32.3-36.5 (BEAKER) (test code = 752) RED CELL DISTRIBUTION WIDTH 12.8 % 11.6-14.4 (BEAKER) (test code = 412) PLATELET COUNT (BEAKER) (test 181 K/CU MM 150-450 code = 756) MEAN PLATELET VOLUME (BEAKER) 10.6 fL 9.4-12.4 (test code = 754) NUCLEATED RED BLOOD CELLS 0 /100 WBC 0-0 (BEAKER) (test code = 413) BLOOD [id number] 13:37:00 Test Item Value Reference Range Interpretation Comments CULTURE A From Aerobic An d (BEAKER) (test Anaerobic Bot tles Same code = 1095) organism has be en isolated from cultures(s) of the same body site and collection date . Repeat identifi cation and susceptibil ity testing perform ed only after consultat ion with the [facility] microbiology laboratory.Refe r to previous cultur e of* - Enterobacter cl oacae complex GRAM STAIN From aerobic and RESULT (BEAKER) anaerobic (test code = bottles: gram 1123) negative rods Previously reported organism is no longer reported. Please contact the Microbiology Department for additional information.BLOOD [id number] 08:29:00 Test Item Value Reference Interpretation Comments Range CULTURE (BEAKER) ENTEROBACTER A From Aerobi c And (test code = 1095) ASBURIAE Anaerobic Bottles Enterobacter asburiae* - Identification is Enterobacter cloacae complex Amikacin (test code = S 1) Aztreonam (test code S = 32) Cefepime (test code = S 51) Cefoxitin (test code R = 68) Ceftazidime (test S code = 27) Ceftriaxone (test S code = 52) Ertapenem (test code S = 38) Gentamicin (test code S = 18) Levofloxacin (test S code = 22) Meropenem (test code S = 34) Nitrofurantoin (test S code = 23) Piperacillin + S Tazobactam (test code = 29) Tetracycline (test S code = 2) Tobramycin (test code S = 25) Trimethoprim + S Sulfamethoxazole (test code = 47) GRAM STAIN RESULT From aerobic and (BEAKER) (test code = anaerobic 1123) bottles: gram negative rods Final identification has changed, see organism commentBASIC METABOLIC PANEL 2017-12-27 06:58:00 Test Item Value Reference Range Interpretation Comments SODIUM (BEAKER) 128 meq/L 136-145 L (test code = 381) POTASSIUM (BEAKER) 4.1 meq/L 3.5-5.1 (test code = 379) CHLORIDE (BEAKER) 98 meq/L 98-107 (test code = 382) CO2 (BEAKER) (test 24 meq/L 22-29 code = 355) BLOOD UREA NITROGEN 20 mg/dL 7-21 (BEAKER) (test code = 354) CREATININE (BEAKER) 0.81 mg/dL 0.57-1.25 (test code = 358) GLUCOSE RANDOM 116 mg/dL 70-105 H (BEAKER) (test code = 652) CALCIUM (BEAKER) 8.5 mg/dL 8.4-10.2 (test code = 697) EGFR (BEAKER) (test mL/min/1.73 INSUFFIC IENT CLINICAL code = 1092) sq m DATA TO CALCULA TE ESTIMATED GFR. CBC (HEMOGRAM ONLY)2017-12-27 06:16:00 Test Item Value Reference Range Interpretation Comments WHITE BLOOD CELL COUNT (BEAKER) 11.5 K/ L 3.5-10.5 H (test code = 775) RED BLOOD CELL COUNT (BEAKER) 4.20 M/ L 4.63-6.08 L (test code = 761) HEMOGLOBIN (BEAKER) (test code = 13.2 GM/DL 13.7-17.5 L 410) HEMATOCRIT (BEAKER) (test code = 37.1 % 40.1-51.0 L 411) MEAN CORPUSCULAR VOLUME (BEAKER) 88.3 fL 79.0-92.2 (test code = 753) MEAN CORPUSCULAR HEMOGLOBIN 31.4 pg 25.7-32.2 (BEAKER) (test code = 751) MEAN CORPUSCULAR HEMOGLOBIN CONC 35.6 GM/DL 32.3-36.5 (BEAKER) (test code = 752) RED CELL DISTRIBUTION WIDTH 12.6 % 11.6-14.4 (BEAKER) (test code = 412) PLATELET COUNT (BEAKER) (test 152 K/CU MM 150-450 code = 756) MEAN PLATELET VOLUME (BEAKER) 11.2 fL 9.4-12.4 (test code = 754) NUCLEATED RED BLOOD CELLS 0 /100 WBC 0-0 (BEAKER) (test code = 413) [id number] 07:03:00 Test Item Value Reference Range Interpretation Comments PROSTATE SPECIFIC ANTIGEN (BEAKER) 5.5 ng/mL 0.0-4.0 H (test code = 844) BASIC METABOLIC [id number] 06:50:00 Test Item Value Reference Range Interpretation Comments SODIUM (BEAKER) 131 meq/L 136-145 L (test code = 381) POTASSIUM (BEAKER) 4.1 meq/L 3.5-5.1 (test code = 379) CHLORIDE (BEAKER) 100 meq/L 98-107 (test code = 382) CO2 (BEAKER) (test 24 meq/L 22-29 code = 355) BLOOD UREA NITROGEN 18 mg/dL 7-21 (BEAKER) (test code = 354) CREATININE (BEAKER) 0.77 mg/dL 0.57-1.25 (test code = 358) GLUCOSE RANDOM 115 mg/dL 70-105 H (BEAKER) (test code = 652) CALCIUM (BEAKER) 8.3 mg/dL 8.4-10.2 L (test code = 697) EGFR (BEAKER) (test mL/min/1.73 INSUFFIC IENT CLINICAL code = 1092) sq m DATA TO CALCULA TE ESTIMATED GFR. CBC (HEMOGRAM ONLY)2017-12-26 06:12:00 Test Item Value Reference Range Interpretation Comments WHITE BLOOD CELL COUNT (BEAKER) 9.5 K/ L 3.5-10.5 (test code = 775) RED BLOOD CELL COUNT (BEAKER) 3.83 M/ L 4.63-6.08 L (test code = 761) HEMOGLOBIN (BEAKER) (test code = 12.2 GM/DL 13.7-17.5 L 410) HEMATOCRIT (BEAKER) (test code = 34.2 % 40.1-51.0 L 411) MEAN CORPUSCULAR VOLUME (BEAKER) 89.3 fL 79.0-92.2 (test code = 753) MEAN CORPUSCULAR HEMOGLOBIN 31.9 pg 25.7-32.2 (BEAKER) (test code = 751) MEAN CORPUSCULAR HEMOGLOBIN CONC 35.7 GM/DL 32.3-36.5 (BEAKER) (test code = 752) RED CELL DISTRIBUTION WIDTH 12.7 % 11.6-14.4 (BEAKER) (test code = 412) PLATELET COUNT (BEAKER) (test code 90 K/CU MM 150-450 L = 756) MEAN PLATELET VOLUME (BEAKER) 11.3 fL 9.4-12.4 (test code = 754) NUCLEATED RED BLOOD CELLS (BEAKER) 0 /100 WBC 0-0 (test code = 413) BASIC METABOLIC [id number] 08:23:00 Test Item Value Reference Range Interpretation Comments SODIUM (BEAKER) 129 meq/L 136-145 L (test code = 381) POTASSIUM (BEAKER) 3.6 meq/L 3.5-5.1 (test code = 379) CHLORIDE (BEAKER) 102 meq/L 98-107 (test code = 382) CO2 (BEAKER) (test 23 meq/L 22-29 code = 355) BLOOD UREA NITROGEN 18 mg/dL 7-21 (BEAKER) (test code = 354) CREATININE (BEAKER) 0.75 mg/dL 0.57-1.25 (test code = 358) GLUCOSE RANDOM 116 mg/dL 70-105 H (BEAKER) (test code = 652) CALCIUM (BEAKER) 8.0 mg/dL 8.4-10.2 L (test code = 697) EGFR (BEAKER) (test mL/min/1.73 INSUFFIC IENT CLINICAL code = 1092) sq m DATA TO CALCULA TE ESTIMATED GFR. CBC (HEMOGRAM ONLY)2017-12-25 05:48:00 Test Item Value Reference Range Interpretation Comments WHITE BLOOD CELL COUNT (BEAKER) 7.1 K/ L 3.5-10.5 (test code = 775) RED BLOOD CELL COUNT (BEAKER) 3.52 M/ L 4.63-6.08 L (test code = 761) HEMOGLOBIN (BEAKER) (test code = 11.1 GM/DL 13.7-17.5 L 410) HEMATOCRIT (BEAKER) (test code = 31.2 % 40.1-51.0 L 411) MEAN CORPUSCULAR VOLUME (BEAKER) 88.6 fL 79.0-92.2 (test code = 753) MEAN CORPUSCULAR HEMOGLOBIN 31.5 pg 25.7-32.2 (BEAKER) (test code = 751) MEAN CORPUSCULAR HEMOGLOBIN CONC 35.6 GM/DL 32.3-36.5 (BEAKER) (test code = 752) RED CELL DISTRIBUTION WIDTH 12.5 % 11.6-14.4 (BEAKER) (test code = 412) PLATELET COUNT (BEAKER) (test code 66 K/CU MM 150-450 L = 756) MEAN PLATELET VOLUME (BEAKER) 12.0 fL 9.4-12.4 (test code = 754) NUCLEATED RED BLOOD CELLS (BEAKER) 0 /100 WBC 0-0 (test code = 413) CBC W/PLT COUNT & AUTO [id number] 05:48:00 Test Item Value Reference Range Interpretation Comments WHITE BLOOD CELL COUNT (BEAKER) 7.1 K/ L 3.5-10.5 (test code = 775) RED BLOOD CELL COUNT (BEAKER) 3.52 M/ L 4.63-6.08 L (test code = 761) HEMOGLOBIN (BEAKER) (test code = 11.1 GM/DL 13.7-17.5 L 410) HEMATOCRIT (BEAKER) (test code = 31.2 % 40.1-51.0 L 411) MEAN CORPUSCULAR VOLUME (BEAKER) 88.6 fL 79.0-92.2 (test code = 753) MEAN CORPUSCULAR HEMOGLOBIN 31.5 pg 25.7-32.2 (BEAKER) (test code = 751) MEAN CORPUSCULAR HEMOGLOBIN CONC 35.6 GM/DL 32.3-36.5 (BEAKER) (test code = 752) RED CELL DISTRIBUTION WIDTH 12.5 % 11.6-14.4 (BEAKER) (test code = 412) PLATELET COUNT (BEAKER) (test code 66 K/CU MM 150-450 L = 756) MEAN PLATELET VOLUME (BEAKER) 12.0 fL 9.4-12.4 (test code = 754) NUCLEATED RED BLOOD CELLS (BEAKER) 0 /100 WBC 0-0 (test code = 413) NEUTROPHILS RELATIVE PERCENT 70 % (BEAKER) (test code = 429) LYMPHOCYTES RELATIVE PERCENT 16 % (BEAKER) (test code = 430) MONOCYTES RELATIVE PERCENT 13 % (BEAKER) (test code = 431) EOSINOPHILS RELATIVE PERCENT 0 % (BEAKER) (test code = 432) BASOPHILS RELATIVE PERCENT 0 % (BEAKER) (test code = 437) NEUTROPHILS ABSOLUTE COUNT 4.96 K/ L 1.78-5.38 (BEAKER) (test code = 670) LYMPHOCYTES ABSOLUTE COUNT 1.16 K/ L 1.32-3.57 L (BEAKER) (test code = 414) MONOCYTES ABSOLUTE COUNT (BEAKER) 0.92 K/ L 0.30-0.82 H (test code = 415) EOSINOPHILS ABSOLUTE COUNT 0.03 K/ L 0.04-0.54 L (BEAKER) (test code = 416) BASOPHILS ABSOLUTE COUNT (BEAKER) 0.02 K/ L 0.01-0.08 (test code = 417) IMMATURE GRANULOCYTES-RELATIVE 1 % 0-1 PERCENT (BEAKER) (test code = 2801) [id number] 23:09:00 Test Item Value Reference Range Interpretation Comments PARTIAL THROMBOPLASTIN TIME 51.4 seconds 22.5-36.0 H (BEAKER) (test code = 760) OCCULT BLOOD, [id number] 15:46:00 Test Item Value Reference Range Interpretation Comments FECAL OCCULT BLOOD (BEAKER) (test Positive Negative A code = 618) [id number] 15:44:00 Test Item Value Reference Range Interpretation Comments PARTIAL THROMBOPLASTIN TIME 40.9 seconds 22.5-36.0 H (BEAKER) (test code = 760) [id number] 14:06:00 Test Item Value Reference Range Interpretation Comments PARTIAL THROMBOPLASTIN TIME 163.9 seconds 22.5-36.0 HH (BEAKER) (test code = 760) VANCOMYCIN LEVEL, [id number] 06:03:00 Test Item Value Reference Range Interpretation Comments VANCOMYCIN TROUGH (BEAKER) (test 7.7 ug/mL 10.0-20.0 L code = 522) LACTIC ACID, VENOUS, WHOLE [id number] 05:06:00 Test Item Value Reference Range Interpretation Comments LACTATE BLOOD VENOUS 1.1 mmol/L 0.5-2.2 Specime n slightly (2) (BEAKER) (test hemolyzed code = 2872) Effective 08/11/2015: Units/Reference Range ChangeNew: 0.5-2.2 mmol/L Previous: 5-20 mg/[id number] 05:05:00 Test Item Value Reference Range Interpretation Comments PARTIAL THROMBOPLASTIN TIME 60.9 seconds 22.5-36.0 H (BEAKER) (test code = 760) [id number] 02:38:00 Test Item Value Reference Range Interpretation Comments PARTIAL THROMBOPLASTIN TIME 60.7 seconds 22.5-36.0 H (BEAKER) (test code = 760) RAD, CHEST, 1 VIEW, NON [id number] 22:07:00Reason for exam:- >dyspneaShould this be performed at the bedside?->YesFINAL REPORT Chest one view. Clinical history: dyspnea Comparison: None. Tech nique: A single frontal view of the chest was obtained. Findings:The patient is status post median sternotomy. There are surgical clips in mediastinum. The aorta is atherosclerotic and uncoiled.The heart is normal in size. There is no pulmonary edema, focal pulmonary consolidation or definite pleuraleffusion. Signed: Virgil Molina Verified Date/Time: 12/23/2017 22:07:46 Reading Location: [address] Body Reading Room [id number] 19:21:00 Test Item Value Reference Range Interpretation Comments PARTIAL THROMBOPLASTIN TIME 108.5 seconds 22.5-36.0 H (BEAKER) (test code = 760) VANCOMYCIN LEVEL, [id number] 16:12:00 Test Item Value Reference Range Interpretation Comments VANCOMYCIN TROUGH (BEAKER) (test 5.8 ug/mL 10.0-20.0 L code = 522) [id number] 13:23:00 Test Item Value Reference Range Interpretation Comments PARTIAL THROMBOPLASTIN TIME 91.0 seconds 22.5-36.0 H (BEAKER) (test code = 760) [id number] 04:43:00 Test Item Value Reference Range Interpretation Comments PARTIAL THROMBOPLASTIN TIME 106.8 seconds 22.5-36.0 H (BEAKER) (test code = 760) Prior to initiating heparinTROPONIN [id number] 04:27:00 Test Item Value Reference Range Interpretation Comments TROPONIN I (BEAKER) (test code = 6.35 ng/mL 0.00-0.03 [facility]) Troponin I (TnI) levels must be interpreted [...] acute neurological disease, and persistent tachyarrhythmia.VANCOMYCIN LEVEL, [id number] 04:23:00 Test Item Value Reference Range Interpretation Comments VANCOMYCIN TROUGH (BEAKER) (test 7.2 ug/mL 10.0-20.0 L code = 522) BASIC METABOLIC [id number] 04:21:00 Test Item Value Reference Range Interpretation Comments SODIUM (BEAKER) 133 meq/L 136-145 L (test code = 381) POTASSIUM (BEAKER) 4.0 meq/L 3.5-5.1 (test code = 379) CHLORIDE (BEAKER) 104 meq/L 98-107 (test code = 382) CO2 (BEAKER) (test 22 meq/L 22-29 code = 355) BLOOD UREA NITROGEN 24 mg/dL 7-21 H (BEAKER) (test code = 354) CREATININE (BEAKER) 0.98 mg/dL 0.57-1.25 (test code = 358) GLUCOSE RANDOM 120 mg/dL 70-105 H (BEAKER) (test code = 652) CALCIUM (BEAKER) 8.2 mg/dL 8.4-10.2 L (test code = 697) EGFR (BEAKER) (test mL/min/1.73 INSUFFIC IENT CLINICAL code = 1092) sq m DATA TO CALCULA TE ESTIMATED GFR. CBC W/PLT COUNT & AUTO [id number] 04:17:00 Test Item Value Reference Range Interpretation Comments WHITE BLOOD CELL COUNT (BEAKER) 5.3 K/ L 3.5-10.5 (test code = 775) RED BLOOD CELL COUNT (BEAKER) 3.80 M/ L 4.63-6.08 L (test code = 761) HEMOGLOBIN (BEAKER) (test code = 12.2 GM/DL 13.7-17.5 L 410) HEMATOCRIT (BEAKER) (test code = 35.0 % 40.1-51.0 L 411) MEAN CORPUSCULAR VOLUME (BEAKER) 92.1 fL 79.0-92.2 (test code = 753) MEAN CORPUSCULAR HEMOGLOBIN 32.1 pg 25.7-32.2 (BEAKER) (test code = 751) MEAN CORPUSCULAR HEMOGLOBIN CONC 34.9 GM/DL 32.3-36.5 (BEAKER) (test code = 752) RED CELL DISTRIBUTION WIDTH 12.8 % 11.6-14.4 (BEAKER) (test code = 412) PLATELET COUNT (BEAKER) (test code 41 K/CU MM 150-450 L = 756) MEAN PLATELET VOLUME (BEAKER) 11.5 fL 9.4-12.4 (test code = 754) NUCLEATED RED BLOOD CELLS (BEAKER) 0 /100 WBC 0-0 (test code = 413) NEUTROPHILS RELATIVE PERCENT 89 % (BEAKER) (test code = 429) LYMPHOCYTES RELATIVE PERCENT 8 % (BEAKER) (test code = 430) MONOCYTES RELATIVE PERCENT 2 % (BEAKER) (test code = 431) EOSINOPHILS RELATIVE PERCENT 0 % (BEAKER) (test code = 432) BASOPHILS RELATIVE PERCENT 0 % (BEAKER) (test code = 437) NEUTROPHILS ABSOLUTE COUNT 4.72 K/ L 1.78-5.38 (BEAKER) (test code = 670) LYMPHOCYTES ABSOLUTE COUNT 0.42 K/ L 1.32-3.57 L (BEAKER) (test code = 414) MONOCYTES ABSOLUTE COUNT (BEAKER) 0.11 K/ L 0.30-0.82 L (test code = 415) EOSINOPHILS ABSOLUTE COUNT 0.00 K/ L 0.04-0.54 L (BEAKER) (test code = 416) BASOPHILS ABSOLUTE COUNT (BEAKER) 0.00 K/ L 0.01-0.08 L (test code = 417) IMMATURE GRANULOCYTES-RELATIVE 1 % 0-1 PERCENT (BEAKER) (test code = 2801) LIPID [id number] 04:17:00 Test Item Value Reference Range Interpretation Comments TRIGLYCERIDES (BEAKER) (test code = 98 mg/dL 540) CHOLESTEROL (BEAKER) (test code = 91 mg/dL 631) HDL CHOLESTEROL (BEAKER) (test code 32 mg/dL = 976) LDL CHOLESTEROL CALCULATED (BEAKER) 39 mg/dL (test code = 633) Triglyceride Reference Range: Low Risk <150 Borderline 150-199 High Risk 200-499 Very High Risk >=500Cholesterol Reference Range: Low Risk <200 Borderline 200-239 High Risk >240HDL Cholesterol Reference Range: Low Risk >=60 High Risk <40LDL Cholesterol Reference Range: Optimal <100 Near Optimal 100-129 Borderline 130-159 High 160-189 Very High >=190PLATELET [id number] 03:56:00 Test Item Value Reference Range Interpretation Comments PLATELET COUNT (BEAKER) (test code 32 K/CU MM 150-450 L = 756) CBC (HEMOGRAM ONLY)2017-12-23 03:54:00 Test Item Value Reference Range Interpretation Comments WHITE BLOOD CELL COUNT (BEAKER) 5.3 K/ L 3.5-10.5 (test code = 775) RED BLOOD CELL COUNT (BEAKER) 3.80 M/ L 4.63-6.08 L (test code = 761) HEMOGLOBIN (BEAKER) (test code = 12.2 GM/DL 13.7-17.5 L 410) HEMATOCRIT (BEAKER) (test code = 35.0 % 40.1-51.0 L 411) MEAN CORPUSCULAR VOLUME (BEAKER) 92.1 fL 79.0-92.2 (test code = 753) MEAN CORPUSCULAR HEMOGLOBIN 32.1 pg 25.7-32.2 (BEAKER) (test code = 751) MEAN CORPUSCULAR HEMOGLOBIN CONC 34.9 GM/DL 32.3-36.5 (BEAKER) (test code = 752) RED CELL DISTRIBUTION WIDTH 12.8 % 11.6-14.4 (BEAKER) (test code = 412) PLATELET COUNT (BEAKER) (test code 41 K/CU MM 150-450 L = 756) MEAN PLATELET VOLUME (BEAKER) 11.5 fL 9.4-12.4 (test code = 754) NUCLEATED RED BLOOD CELLS (BEAKER) 0 /100 WBC 0-0 (test code = 413) BLOOD CULTURE IDENTIFICATION [id number] 03:51:00 Test Item Value Reference Range Interpretation Comments LISTERIA MONOCYTOGENES Not detected Not detected (test code = 7304535) STAPHYLOCOCCUS (test Not detected Not detected code = 5106497) STAPHYLOCOCCUS AUREUS Not detected Not detected (test code = 6309432) STREPTOCOCCUS (test code Not detected Not detected = 2395825) STREPTOCOCCUS AGALACTIAE Not detected Not detected (GROUP B) (test code = 1842108) STREPTOCOCCUS PNEUMONIAE Not detected Not detected (test code = 0116261) STREPTOCOCCUS PYOGENES Not detected Not detected (GROUP A) (test code = 9323677) ACINETOBACTER BAUMANNII Not detected Not detected (test code = 4052282) HAEMOPHILUS INFLUENZAE Not detected Not detected (test code = 0498841) NEISSERIA MENINGITIDIS Not detected Not detected (test code = 3657434) ENTEROBACTERIACEAE (test Detected Not detected A code = 4571586) ENTEROBACTER CLOACOE Detected Not detected A First l ine COMPLEX (test code = therapy : Cefepime ) or MeropenemThi s test does not evaluate for ESBLReference Range: Not Detected KLEBSIELLA OXYTOCA (test Not detected Not detected code = 6951979) KLEBSIELLA PNEUMONIAE Not detected Not detected (test code = 1650) PROTEUS (test code = Not detected Not detected 0115513) SERRATIA MARCESCENS Not detected Not detected (test code = 5344827) HUSSAIN ALBICANS (test Not detected Not detected code = 9969006) HUSSAIN GLABRATA (test Not detected Not detected code = 2373393) HUSSAIN KRUSEI (test Not detected Not detected code = 2979785) HUSSAIN PARAPSILOSIS Not detected Not detected (test code = 7242674) HUSSAIN TROPICALIS (test Not detected Not detected code = 7593548) ESCHERICHIA COLI (test Not detected Not detected code = 7428244) METHICILLIN-RESISTANCE Not detected GENE (test code = 3407308) VANCOMYCIN-RESISTANCE Not detected GENE (test code = 0345509) CARBAPENEM-RESISTANCE Not detected Not detected GENE (test code = 0161654) ENTEROCOCCUS-BEAKER Not detected Not detected (test code = 7856953) PSEUDOMONAS Not detected Not detected AERUGINOSA-BEAKER (test code = 5818087) Other bacteria and resistance markers not targeted by this PCR panel cannot be excluded; therefore clinical correlation and follow up of serology, culture results, and other molecular studies is required. The results are not intended to be used as the sole means for clinical diagnosis or patient management decisions. This sample was tested at the [facility] using the [employer] Blood Culture ID Panel. It is FDA cleared and has been verified and approved by the [facility] for clinical use. This laboratory is CLIA-certified and College ofAmerican Pathologists (CAP)-accredited to perform high complexity testing.TROPONIN I 2017-12-22 21:07:00 Test Item Value Reference Range Interpretation Comments TROPONIN I (FRANK) (test code = 8.76 ng/mL 0.00-0.03 [facility]) Troponin I (TnI) levels must be interpreted [...] neurological disease, and persistent tachyarrhythmia.MR, SPINE, CERVICAL, [id number] 17:55:00FINAL REPORT MRI of the cervical spine pre [...] Hdz Verified Date/Time: 12/22/2017 17:55:40 Reading Location: [address] Neuro Reading Room , BRAIN, [id number] 17:38:00FINAL REPORT MRI brain with and without contrast Comparison: None Reason for exam: Decreased alertness Discussion: Multiplanar MR imaging of the brain was provided pre-and- post IV gadolinium administration using T1, T2, FLAIR, [...] are unremarkable. The visualized orbital contents, paranasal sinuses,skullbase and surrounding soft tissues are unremarkable. Impressions: Unremarkable for age cranial MRI. Signed: Jody Hdz Verified Date/Time: 12/22/2017 17:38:21 Reading Location: [address] Neuro Reading Room URINALYSIS W/ REFLEX URINE [id number] 14:48:00 Test Item Value Reference Range Interpretation Comments COLOR (BEAKER) (test code = 470) Yellow CLARITY (BEAKER) (test code = 469) Clear SPECIFIC GRAVITY UA (BEAKER) (test 1.019 1.001-1.035 code = 468) PH UA (BEAKER) (test code = 467) 6.5 5.0-8.0 PROTEIN UA (BEAKER) (test code = 70 mg/dL Negative A 464) GLUCOSE UA (BEAKER) (test code = Negative Negative 365) KETONES UA (BEAKER) (test code = 20 mg/dL Negative A 371) BILIRUBIN UA (BEAKER) (test code = Negative Negative 462) BLOOD UA (BEAKER) (test code = 461) Large Negative A NITRITE UA (BEAKER) (test code = Negative Negative 465) LEUKOCYTE ESTERASE UA (BEAKER) Trace Negative A (test code = 466) UROBILINOGEN UA (BEAKER) (test code 2.0 mg/dL 0.2-1.0 H = 463) RBC UA (BEAKER) (test code = 519) 52 /HPF WBC UA (BEAKER) (test code = 520) 12 /HPF BACTERIA (BEAKER) (test code = 517) Rare MUCUS (BEAKER) (test code = 1574) Rare SQUAMOUS EPITHELIAL (BEAKER) (test 2 /HPF code = 516) SOURCE(BEAKER) (test code = 2795) TROPONIN [id number] 14:32:00 Test Item Value Reference Range Interpretation Comments TROPONIN I (BEAKER) (test code = 7.20 ng/mL 0.00-0.03 HH 397) Troponin I (TnI) levels must be interpreted [...] disease, and persistent tachyarrhythmia.B-TYPE NATRIURETIC FACTOR (BNP) 2017-12-22 14:26:00 Test Item Value Reference Range Interpretation Comments B-TYPE NATRIURETIC PEPTIDE (BEAKER) 810 pg/mL 0-100 H (test code = 700) COMPREHENSIVE METABOLIC [id number] 14:21:00 Test Item Value Reference Range Interpretation Comments TOTAL PROTEIN 6.6 gm/dL 6.0-8.3 Specimen sligh tly (BEAKER) (test code hemolyze d = 770) ALBUMIN (BEAKER) 3.6 g/dL 3.5-5.0 Specimen sl ightly (test code = 1145) hemolyzed ALKALINE PHOSPHATASE 54 U/L 40-150 (BEAKER) (test code = 346) BILIRUBIN TOTAL 1.2 mg/dL 0.2-1.2 Specimen sli ghtly (BEAKER) (test code hemolyze d = 377) SODIUM (BEAKER) 133 meq/L 136-145 L (test code = 381) POTASSIUM (BEAKER) 3.9 meq/L 3.5-5.1 Specimen slightly (test code = 379) hemolyzed CHLORIDE (BEAKER) 103 meq/L 98-107 (test code = 382) CO2 (BEAKER) (test 21 meq/L 22-29 L code = 355) BLOOD UREA NITROGEN 22 mg/dL 7-21 H (BEAKER) (test code = 354) CREATININE (BEAKER) 1.00 mg/dL 0.57-1.25 Specimen slightly (test code = 358) hemolyzed GLUCOSE RANDOM 111 mg/dL 70-105 H (BEAKER) (test code = 652) CALCIUM (BEAKER) 8.6 mg/dL 8.4-10.2 (test code = 697) AST (SGOT) (BEAKER) 90 U/L 5-34 H Specimen slightly (test code = 353) hemolyzed ALT (SGPT) (BEAKER) 26 U/L 6-55 Specimen slightly (test code = 347) hemolyzed EGFR (BEAKER) (test mL/min/1.73 INSUFFIC IENT code = 1092) sq m CLINICAL DATA T O CALCULATE ESTIM ATED GFR. [id number] 14:20:00 Test Item Value Reference Range Interpretation Comments MAGNESIUM (BEAKER) 1.8 mg/dL 1.6-2.6 Specimen slightly (test code = 627) hemolyzed [id number] 14:20:00 Test Item Value Reference Range Interpretation Comments PHOSPHORUS (BEAKER) 2.0 mg/dL 2.3-4.7 L Specimen slightly (test code = 604) hemolyzed LACTIC ACID, VENOUS, WHOLE [id number] 14:20:00 Test Item Value Reference Range Interpretation Comments LACTATE BLOOD VENOUS 3.6 mmol/L 0.5-2.2 H Specime n slightly (2) (BEAKER) (test hemolyzed code = 2872) Effective 08/11/2015: Units/Reference Range ChangeNew: 0.5-2.2 mmol/L Previous: 5-20 mg/dLPROTHROMBIN [id number] 14:02:00 Test Item Value Reference Range Interpretation Comments PROTIME (BEAKER) (test code = 15.1 seconds 11.7-14.7 H 759) INR (BEAKER) (test code = 370) 1.2 <=5.9 RECOMMENDED COUMADIN/WARFARIN INR THERAPY RANGESSTANDARD DOSE: 2.0 - 3.0 Includes: PROPHYLAXIS forvenous thrombosis, systemic embolization; TREATMENT for venous thrombosis and/or pulmonary embolus.HIGH RISK: Target INR is 2.5-3.5 for patients with mechanical heart valves.CBC W/PLT COUNT & AUTO DIFFERENTIAL 2017-12-22 13:57:00 Test Item Value Reference Range Interpretation Comments WHITE BLOOD CELL COUNT (BEAKER) 7.1 K/ L 3.5-10.5 (test code = 775) RED BLOOD CELL COUNT (BEAKER) 4.44 M/ L 4.63-6.08 L (test code = 761) HEMOGLOBIN (BEAKER) (test code = 14.4 GM/DL 13.7-17.5 410) HEMATOCRIT (BEAKER) (test code = 41.1 % 40.1-51.0 411) MEAN CORPUSCULAR VOLUME (BEAKER) 92.6 fL 79.0-92.2 H (test code = 753) MEAN CORPUSCULAR HEMOGLOBIN 32.4 pg 25.7-32.2 H (BEAKER) (test code = 751) MEAN CORPUSCULAR HEMOGLOBIN CONC 35.0 GM/DL 32.3-36.5 (BEAKER) (test code = 752) RED CELL DISTRIBUTION WIDTH 12.9 % 11.6-14.4 (BEAKER) (test code = 412) PLATELET COUNT (BEAKER) (test code 58 K/CU MM 150-450 L = 756) MEAN PLATELET VOLUME (BEAKER) 11.3 fL 9.4-12.4 (test code = 754) NUCLEATED RED BLOOD CELLS (BEAKER) 0 /100 WBC 0-0 (test code = 413) NEUTROPHILS RELATIVE PERCENT 92 % (BEAKER) (test code = 429) LYMPHOCYTES RELATIVE PERCENT 6 % (BEAKER) (test code = 430) MONOCYTES RELATIVE PERCENT 2 % (BEAKER) (test code = 431) EOSINOPHILS RELATIVE PERCENT 0 % (BEAKER) (test code = 432) BASOPHILS RELATIVE PERCENT 0 % (BEAKER) (test code = 437) NEUTROPHILS ABSOLUTE COUNT 6.51 K/ L 1.78-5.38 H (BEAKER) (test code = 670) LYMPHOCYTES ABSOLUTE COUNT 0.40 K/ L 1.32-3.57 L (BEAKER) (test code = 414) MONOCYTES ABSOLUTE COUNT (BEAKER) 0.14 K/ L 0.30-0.82 L (test code = 415) EOSINOPHILS ABSOLUTE COUNT 0.00 K/ L 0.04-0.54 L (BEAKER) (test code = 416) BASOPHILS ABSOLUTE COUNT (BEAKER) 0.01 K/ L 0.01-0.08 (test code = 417) IMMATURE GRANULOCYTES-RELATIVE 0 % 0-1 PERCENT (BEAKER) (test code = 2801)
[2020-12-11 18:49] LABS: Absolute Lymphocytes (CBC) 1.3 K/uL (0.7-4.9); Basophils % 0.8 % (0-1.3); Hematocrit 42.9 % (39.6-49.0); Lymphocytes % 22.2 % (15.3-44.8); MPV 8.5 fL (7.6-11.3); RBC Red Blood Cell Count 4.61 M/uL (4.33-5.43)
[2020-12-11 18:57] LABS: Protime INR 1.04
[2020-12-11 19:06] LABS: ALT/SGPT 28 U/L (12-78); AST/SGOT 17 U/L (15-37); Albumin 3.8 g/dL (3.4-5.0); Alkaline Phosphatase 80 U/L (45-117); BUN Blood Urea Nitrogen 22 mg/dL (7-18); Bicarbonate 25 mmol/L (21-32); Bilirubin Direct < 0.1 mg/dL (0-0.2); Bilirubin Total 0.3 mg/dL (0.2-1.0); Glucose Level 83 mg/dL (74-106); Magnesium 2.2 mg/dL (1.8-2.4); NT PRO-BNP 268 pg/mL (<450); Potassium 3.8 mmol/L (3.5-5.1); Protein, Total 7.3 g/dL (6.4-8.2); Sodium Level 140 mmol/L (136-145); Troponin (Emerg Dept Use Only) < 0.02 ng/mL (0.0-0.045)
--- NOTE | 2020-12-11 19:09 | RAD REPORT ---
EXAM DESCRIPTION: Sukhjinder Single View12/11/2020 6:51 pm CLINICAL HISTORY: Chest pain COMPARISON: 2016 FINDINGS: The lungs appear clear of acute infiltrate. The heart is normal size. Postsurgical change s involve the chest IMPRESSION: No acute abnormalities displayed
--- NOTE | 2020-12-12 02:01 | EDPHYS ---
Physician Documentation [facility] Name: Xu Fulton Age: 85 yrs Sex: Male : 1935 Arrival Date: 12/11/2020 Time: 17:32 Bed 23 Private MD: Percy Ruano V ED Physician Irwin Ruvalcaba HPI: 12/11 23:32 This 85 yrs old Male presents to ER via Ambulatory with complaints of mh7 Shortness Of Breath. 22:32 Duration: The symptoms are intermittent, with no pattern. The patient's shortness of mh7 breath is aggravated by exertion, light activity. Associated signs and symptoms: Pertinent positives: chest pain, Pertinent negatives: non-productive cough, productive cough, diaphoresis, dizziness, fever, hemoptysis, loss of consciousness, nausea, numbness in extremities, visual changes, vomiting. 22:32 Severity of symptoms: At their worst the symptoms were moderate yesterday, in the [facility] emergency department the symptoms are unchanged. 23:32 The patient has shortness of breath at rest, with light activity. Onset: The mh7 symptoms/episode began/occurred 5 day(s) ago. Historical: - Allergies: 18:19 No Known Allergies; aa5 - PMHx: 18:16 BPH; GERD; Myocardial infarction; aa5 - PSHx: 18:20 heart bypass; aa5 - Immunization history:: Client reports receiving the 2nd dose of the Covid vaccine. - Social history:: Smoking status: Patient denies any tobacco usage or history of. ROS: 22:32 Constitutional: Negative for fever, chills, and weight loss, Eyes: Negative for injury, mh7 pain, redness, and discharge, ENT: Negative for injury, pain, and discharge, Neck: Negative for injury, pain, and swelling, Abdomen/GI: Negative for abdominal pain, nausea, vomiting, diarrhea, and constipation, Back: Negative for injury and pain, : Negative for injury, bleeding, discharge, and swelling, MS/Extremity: Negative for injury and deformity, Skin: Negative for injury, rash, and discoloration, Neuro: Negative for headache, weakness, numbness, tingling, and seizure, Psych: Negative for depression, anxiety, suicide ideation, homicidal ideation, and hallucinations, Allergy/Immunology: Negative for hives, rash, and allergies, Endocrine: Negative for neck swelling, polydipsia, polyuria, polyphagia, and marked weight changes, Hematologic/Lymphatic: Negative for swollen nodes, abnormal bleeding, and unusual bruising. Exam: 22:32 Constitutional: This is a well developed, well nourished patient who is awake, alert, mh7 and in no acute distress. Head/Face: Normocephalic, atraumatic. Eyes: Pupils equal round and reactive to light, extra-ocular motions intact. Lids and lashes normal. Conjunctiva and sclera are non-icteric and not injected. Cornea within normal limits. Periorbital areas with no swelling, redness, or edema. Neck: Trachea midline, no thyromegaly or masses palpated, and no cervical lymphadenopathy. Supple, full range of motion without nuchal rigidity, or vertebral point tenderness. No Meningismus. Chest/axilla: Normal chest wall appearance and motion. Nontender with no deformity. No lesions are appreciated. Cardiovascular: Regular rate and rhythm with a normal S1 and S2. No gallops, murmurs, or rubs. Normal PMI, no JVD. No pulse deficits. 22:32 Abdomen/GI: Soft, non-tender, with normal bowel sounds. No distension or tympany. No guarding or rebound. No evidence of tenderness throughout. Back: No spinal tenderness. No costovertebral tenderness. Full range of motion. Skin: Warm, dry with normal turgor. Normal color with no rashes, no lesions, and no evidence of cellulitis. MS/ Extremity: Pulses equal, no cyanosis. Neurovascular intact. Full, normal range of motion. Neuro: Awake and alert, GCS 15, oriented to person, place, time, and situation. Cranial nerves II-XII grossly intact. Motor strength 5/5 in all extremities. Sensory grossly intact. Cerebellar exam normal. Normal gait. Psych: Awake, alert, with orientation to person, place and time. Behavior, mood, and affect are within normal limits. 22:32 Respiratory: the patient does not display signs of respiratory distress, Respirations: normal, Breath sounds: rhonchi, that are mild, are scattered, Respiratory rate: 20 Vital Signs: 18:19 BP 150 / 72; Pulse 86; Resp 20 S; Temp 98.0(TE); Pulse Ox 100% on R/A; Weight 68.04 kg aa5 (R); Height 5 ft. 8 in. (172.72 cm) (R); 12/12 00:00 BP 151 / 84; Pulse 75; Resp 18; Pulse Ox 99% on R/A; Pain 6/10; lp1 12/11 18:19 Body Mass Index 22.81 (68.04 kg, 172.72 cm) aa5 MDM: 01:58 Differential diagnosis: Anemia Anxiety Reaction asthma, Bronchitis CHF exacerbation, mh7 Chronic Obstructive Pulmonary Disease Myocardial Infarction pneumonia, Pneumothorax Psychogenic pulmonary edema, Pulmonary Embolism reactive airway disease. Data reviewed: vital signs, nurses notes, old medical records, lab test result(s), cardiac enzymes, CBC, drug level(s), electrolytes, EKG, radiologic studies, CT scan, plain films. Data interpreted: Pulse oximetry: on room air is 99 %. Interpretation: normal. Counseling: I had a detailed discussion with the patient and/or guardian regarding: the historical points, exam findings, and any diagnostic results supporting the discharge/admit diagnosis, the presence of at least one elevated blood pressure reading (>120/80) during this emergency department visit, lab results, radiology results, the need for further work-up and treatment in the hospital. Response to treatment: the patient's symptoms have mildly improved after treatment. 02:00 Patient medically screened. [facility] 12/11 18:21 Order name: Basic Metabolic Panel; Complete Time: 23:14 12/11 18:21 Order name: CBC with Diff; Complete Time: 23:14 [facility] 12/11 18:21 Order name: LFT's; Complete Time: 23:14 [facility] 12/11 18:21 Order name: Magnesium; Complete Time: 23:14 12/11 18:21 Order name: NT PRO-BNP; Complete Time: 23:14 [facility] 12/11 18:21 Order name: PT-INR; Complete Time: 23:14 [facility] 12/11 18:21 Order name: Troponin (emerg Dept Use Only); Complete Time: 23:14 [facility] 12/11 23:32 Order name: COVID-19 : Document "Date of Symptom Onset" if Symptomatic. [facility] 12/11 23:32 Order name: D-Dimer [facility] 12/11 23:32 Order name: D-Dimer; Complete Time: 01:55 [facility] 12/11 23:32 Order name: Troponin (emerg Dept Use Only); Complete Time: 01:55 [facility] 12/12 01:06 Order name: SARS-COV-2 RT PCR; Complete Time: 01:55 [facility] 12/12 02:06 Order name: Basic Metabolic Panel [facility] 12/11 18:21 Order name: XRAY Chest (1 view); Complete Time: 23:14 [facility] 12/11 18:21 Order name: EKG; Complete Time: 18:22 [facility] 12/11 18:21 Order name: Cardiac monitoring; Complete Time: 22:43 [facility] 12/11 18:21 Order name: EKG - Nurse/Tech; Complete Time: 18:30 [facility] 12/11 18:21 Order name: IV Saline Lock; Complete Time: 18:30 [facility] 12/11 18:21 Order name: Labs collected and sent; Complete Time: 18:30 [facility] 12/11 23:37 Order name: CT Chest For PE Angio [facility] 12/12 02:06 Order name: CONS Physician Consult [facility] 12/12 02:06 Order name: Troponin I [facility] 12/12 02:06 Order name: Troponin I [facility] 12/12 02:06 Order name: 60g Consistent Carbohydrate (ADA 1800/1999) [facility] 12/12 02:06 Order name: EKG Electrocardiogram [facility] 12/12 02:06 Order name: EKG Electrocardiogram [facility] 12/12 02:06 Order name: EKG Electrocardiogram [facility] 12/12 02:06 Order name: EKG Electrocardiogram [facility] 12/11 18:21 Order name: O2 Per Protocol; Complete Time: 22:43 [facility] 12/11 18:21 Order name: O2 Sat Monitoring; Complete Time: 22:43 aa5 Administered Medications: 02:14 Drug: Aspirin Chewable Tablet 162 mg Route: PO; lp1 03:01 Follow up: Response: No adverse reaction lp1 Disposition Summary: 12/12/20 02:00 Hospitalization Ordered Hospitalization Status: Observation mh7 Provider: Percy Ruano Condition: Stable mh7 Problem: new mh7 Symptoms: have improved mh7 Bed/Room Type: Standard [facility] Location: [facility] ER HOLD(12/12/20 03:00) cg Room Assignment: ERHOLD-(12/12/20 03:00) cg Diagnosis - Dyspnea mh7 - Chest pain, unspecified mh7 Forms: - Medication Reconciliation Form [facility] - SBAR form [facility] Signatures: Dispatcher [employer] EDNataliya Watts RN RN aa5 Nydia Madsen RN RN lp1 Sophie Arellano RN RN cg Irwin Ruvalcaba MD MD 7 Corrections: (The following items were deleted from the chart) 00:14 12/11 23:32 CORONAVIRUS ordered. [facility]OR [facility] 12/12 03:00 02:00 Telemetry/MedSurg (observation) [facility] 03:00 02:00 [facility]
--- NOTE | 2020-12-12 02:01 | ER ---
Nurse's Notes [facility] Name: Xu Fulton Age: 85 yrs Sex: Male : 1935 Arrival Date: 12/11/2020 Time: 17:32 Bed 23 Private MD: Percy Ruano V Diagnosis: Dyspnea;Chest pain, unspecified Presentation: 12/11 18:19 Coronavirus screen: shortness of breath. Ebola Screen: Patient negative for fever aa5 greater than or equal to 101.5 degrees Fahrenheit, and additional compatible Ebola Virus Disease symptoms. Initial Sepsis Screen: Does the patient meet any 2 criteria? No. Patient's initial sepsis screen is negative. Does the patient have a suspected source of infection? No. Patient's initial sepsis screen is negative. Risk Assessment: Do you want to hurt yourself or someone else? Patient reports no desire to harm self or others. Onset of symptoms was December 2020. 18:19 Acuity: TEO 3 aa5 18:19 Method Of Arrival: Ambulatory aa5 18:19 Chief complaint: Patient states: SOB and chest pressure x 5 days ago. Pt denies recent aa5 illness, denies cough/fever. Historical: - Allergies: 18:19 No Known Allergies; aa5 - PMHx: 18:16 BPH; GERD; Myocardial infarction; aa5 - PSHx: 18:20 heart bypass; aa5 - Immunization history:: Client reports receiving the 2nd dose of the Covid vaccine. - Social history:: Smoking status: Patient denies any tobacco usage or history of. Screenin/05 00:26 Abuse screen: Denies threats or abuse. Denies injuries from another. Nutritional lp1 screening: No deficits noted. Tuberculosis screening: No symptoms or risk factors identified. Fall Risk None identified. Assessment: 00:00 General: Appears in no apparent distress. Behavior is calm, cooperative, appropriate lp1 for age. Pain: Complains of pain in chest Pain currently is 6 out of 10 on a pain scale. Quality of pain is described as squeezing, Pain began gradually. Neuro: Level of Consciousness is awake, alert, obeys commands, Oriented to person, place, time, situation. Cardiovascular: Patient's skin is warm and dry. Rhythm is sinus rhythm. Respiratory: Reports shortness of breath Airway is patent Respiratory effort is even, Respiratory pattern is regular, Breath sounds are clear bilaterally. Onset: The symptoms/episode began/occurred gradually, the patient has mild shortness of breath. GI: Abdomen is non-distended. : No signs and/or symptoms were reported regarding the genitourinary system. EENT: No signs and/or symptoms were reported regarding the EENT system. Derm: Skin is intact, Skin is dry, Skin is normal. Musculoskeletal: No deficits noted. Vital Signs: 12/11 18:19 BP 150 / 72; Pulse 86; Resp 20 S; Temp 98.0(TE); Pulse Ox 100% on R/A; Weight 68.04 kg aa5 (R); Height 5 ft. 8 in. (172.72 cm) (R); 12/12 00:00 BP 151 / 84; Pulse 75; Resp 18; Pulse Ox 99% on R/A; Pain 6/10; lp1 12/11 18:19 Body Mass Index 22.81 (68.04 kg, 172.72 cm) aa5 ED Course: 12/11 17:32 Patient arrived in ED. as 17:32 Percy Ruano MD is Private Physician. as 18:15 Arm band placed on. aa5 18:20 Triage completed. aa5 18:25 EKG completed in triage. Results shown to MD. aa5 18:30 Initial lab(s) drawn, by hi, sent to lab. Inserted saline lock: 20 gauge in left aa5 antecubital area, using aseptic technique. Blood collected. 18:51 XRAY Chest (1 view) In Process Unspecified. EDMS 23:12 Irwin Ruvalcaba MD is Attending Physician. 7 23:42 Nydia Madsen, RN is Primary Nurse. lp1 12/12 00:00 COVID swab sent to lab. lp1 00:26 Patient has correct armband on for positive identification. lp1 00:27 CT Chest For PE Angio In Process Unspecified. EDMS 01:59 Percy Ruano MD is Hospitalizing Provider. [facility] 03:01 No provider procedures requiring assistance completed. Patient admitted, IV remains in lp1 place. 07:49 Primary Nurse role handed off by Nydia Madsen, RN bp 07:49 Sundeep Fuentes, OVIDIO is Primary Nurse. bp Administered Medications: 02:14 Drug: Aspirin Chewable Tablet 162 mg Route: PO; lp1 03:01 Follow up: Response: No adverse reaction lp1 Outcome: 02:00 Decision to Hospitalize by Provider. 7 03:01 Admitted to ER Hold. Please see [facility] for further documentation. lp1 03:01 Condition: stable 03:01 Instructed on the need for admit. 12:42 Patient left the ED. iw Signatures: Dispatcher [employer] EDGita Johnson Irene, RN RN Nataliya Chawla RN RN aa5 Nydia Madsen RN RN 1 Sundeep Fuentes RN RN bp Holmes, Maurice, MD MD 7 Corrections: (The following items were deleted from the chart) 00:29 00:00 Respiratory: Airway is patent Respiratory effort is even, Respiratory pattern is lp1 regular, Breath sounds are clear bilaterally. lp1
[2020-12-12] MEDS ORDERED: MORPHINE 2 MG/ML SYR IV PRN (02:03)
[2020-12-12] MEDS ORDERED: ONDANSETRON 4 MG/2 ML VIAL IV PRN (02:03)
[2020-12-12] MEDS ORDERED: ACETAMINOPHEN 500 MG TAB PO PRN (02:03)
[2020-12-12] MEDS ORDERED: ASPIRIN 81 MG CHEWABLE TABLET ONE (02:26)
[2020-12-12 05:17] VITALS: BMI 22.9
[2020-12-12 05:19] VITALS: TEMP 97.8
[2020-12-12] MEDS ORDERED: NITROGLYCERIN 1 GM PKT TD SCH (06:00)
[2020-12-12] MEDS ORDERED: NITROGLYCERIN 1 GM PKT TD ONE (08:37)
[2020-12-12] MEDS ORDERED: ASPIRIN EC 81 MG TAB PO SCH (09:00)
[2020-12-12] MEDS ORDERED: ASPIRIN EC 81 MG TAB PO ONE (09:22)
[2020-12-12 09:28] VITALS: BP 127/70
[2020-12-12 10:46] VITALS: O2SAT 98
[2020-12-12] MEDS ORDERED: COLCHICINE 0.6 MG TAB PO ONE (10:53)
--- NOTE | 2020-12-12 11:38 | CON ---
Date of Consultation: 12/12/2020 Admitted on 12/12/[address] Ruano's service. Reason For Consultation: Chest pain. History Of Present Illness: Mr. Fulton is a patient of mine in the practice. 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 Denied any fever or chills. His pain is not exertional, it i s not made worse by food, body position. So far, he has ruled out for an SD. He has a normal EKG, n ormal chest x-ray and normal troponin and BNP. Past Medical History: As stated above. Allergies: NONE. Review of Systems: Negative. Social History: Negative. Family History: Negative. Medications: Include aspirin, and Flomax. Physical Examination: Vital Signs: Stable, afebrile HEENT: Negative. Neck: Supple. No bruit. Chest: Clear. Cardiac: Revealed a regular rhythm and rate. No murmurs, gallops, or rubs. Abdomen: Benign. Extremities: Revealed no clubbing, cyanosis, or edema. Diagnostic Data: All normal. Impression And Plan: Atypical chest pain with substernal chest pressure going on for a week still. He had a normal EKG and normal troponin. We certainly could be dealing with pericarditis, although I think this may be more related to gastroesophageal reflux disease. I think a proton pump inhibitor is reasonable. I think he should be on a statin. He may be intolerant to beta-job. I will disc uss the case further with Dr. Ruano. Nevertheless, I am comfortable with him going home on aspirin, Flomax, statin, proton pump inhibitor, colchicine and I will see him in the office next week and I wi ll make an arrangement for an early stress test with MPI on him. CANDY/LYNNETTE Voice ID: [id number] Report ID: [id number]
[2020-12-12] MEDS ORDERED: ENOXAPARIN 40 MG/0.4 ML SQ SCH (17:00)
[2020-12-12] MEDS ORDERED: TIZANIDINE 4 MG TABLET PO SCH (21:00)
[2020-12-12] MEDS ORDERED: COLCHICINE 0.6 MG TAB PO SCH (21:00)
--- NOTE | 2020-12-13 07:30 | P.SSS ---
Patient History Date of Service: 12/13/20 Reason for admission: CHEST PAIN History of Present Illness: MR ESPINAL IS A KNOWN PATIENT WITH CORONARY ARTERY DISEASE AND ONE STENT BY DR. PERSON. HE HAS CHEST PAIN IN THE CENTER FRONT WITHOUT RADIATION AND HAS BEEN THERE FOR 5 DAYS. IT IS PLEURITIC IN NATURE, HE HURTS MORE WHEN HE TAKES DEEP BREATH AND DOES NOT LESSEN WITH ANY POSITION OF BODY. HE HAD CT PULMONARY ANGIOGRAM DONE IN ER AND I WAS TOLD IT IS NEGATIVE. REPORTS ARE NOT READY IN EDITE. DR. HILARIO AND I AGREE THAT THIS DOES NOT SEEM TO BE PAIN OF CORONARY ORIGIN AND HE CAN DO OUTPATIENT ROBERTS. HIS TROPONINS ARE NEGATIVE. SED RATE IS NORMAL. EKG IS UNREMARKABLE. 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 moist/pink, EOMI, Sclerae nonicteric Neck: Supple, 2+ carotid pulse no bruit, No LAD, Without JVD or thyroid abnormality Respiratory: Clear to auscultation bilaterally, Normal air movement Cardiovascular: Regular rate/rhythm, Normal S1 S2 Gastrointestinal: Normal bowel sounds, No tenderness Musculoskeletal: No tenderness Integumentary: No rashes Neurological: Normal gait, Normal speech, Normal strength at 5/5 x4 extr, Normal tone, Normal affect Lymphatics: No axilla or inguinal lymphadenopathy - Diagnosis (Problem(s)) (1) Pleuritic chest pain Status: Acute Plan: THIS PAIN ABOVE DOES NOT FIT CHARACTER OF CAD. COLCHICINE TRIAL FOR POSSIBLE PERICARDITIS. FU VISIT WITH DR. HILARIO AND I. CONTINUE ASPIRIN ONE DAILY. HE WAS ON STATIN AT HOME AND SHOULD CONTINUE. PROTONIX ORALLY MAY OR MAY NOT HELP HERE. (2) Presence of stent in coronary artery in patient with coronary artery disease Status: Chronic Plan: THIS NOTE WAS DONE A DAY LATER YESTERDAY [facility] WAS SHUT DOWN FOR MANY HOURS. DR. HILARIO FU ON CAD. - Disposition Disposition: DC HOME/HOME HEALTH CARE Condition: FAIR
[2020-12-13] MEDS ORDERED: TAMSULOSIN 0.4 MG SR CAP PO SCH (09:00)
[2020-12-13] MEDS ORDERED: ASPIRIN EC 81 MG TAB PO SCH (09:00)
--- NOTE | 2020-12-13 13:31 | RAD REPORT ---
EXAM DESCRIPTION: CT - Chest For Pe Angio - 12/12/2020 5:36 am CLINICAL HISTORY: 85 years Male Chest pain;SOB. TECHNIQUE: Following the administration of intravenous contrast, multiple high-resolution axial imag es of the chest were performed followed by sagittal and coronal reconstructed images. Coronal oblique MIP images were also performed. The CT study is performed according to ALARA (as low as reasonably a chievable) or ALARA/IMAGE GENTLY, with automatic adjustment of mA and/or kV according to patient size . Performed on: 12/12/2020 at 12:07 AM COMPARISON: Chest x-ray report from 12/11/2020. The image is not available for review. FINDINGS: There is satisfactory visualization and contrast opacification of pulmonary arteries. No definite intra-arterial filling defects are identified to suggest acute or chronic pulmonary embolis m. The thoracic aorta is normal in caliber and contour without evidence of aneurysm or dissection. Th ere are mild atherosclerotic calcifications along the thoracic aorta. The lungs are well expanded and are clear. There is no evidence of a pneumothorax. There are no pleur al effusions. There is mild bibasilar dependent fibrosis and/or atelectasis. There is a small right l ower lobe calcified granuloma. The central airways are patent. The heart is top normal in size. There is no pericardial effusion. There is no reflux of contrast int o the hepatic veins to suggest right heart strain.The RV/LV ratio is within normal limits. There are remote postsurgical changes of the mediastinum. There is no evidence of hilar, mediastinal or axillary lymphadenopathy. No acute osseous abnormality is identified. There are degenerative changes along the thoracic spine. Visualized upper abdominal structures reveal a small hiatal hernia. There are a couple of hepatic and splenic granulomas. IMPRESSION: 1. No CT evidence to suggest acute or chronic pulmonary embolism, aortic aneurysm or aor tic dissection. 2. No evidence of acute intrathoracic disease. 3. Evidence of prior granulomatous disease. 4. Remote median sternotomy. Electronically signed by: Fariba Phillip DO 12/12/2020 12:50 AM CDT Due to temporary technical issues with the PACS/Fluency reporting system, reports are being signed by the in house radiologists without review as a courtesy to insure prompt reporting. The interpreting radiologist is fully responsible for the content of the report.
--- NOTE | 2020-12-13 17:00 | EKG ---
Test Date: 2020-12-11 Test Time: 18:23:03 Dental Mechanic: RAOUL MEASUREMENT RESULTS: Intervals: Rate: 78 KS: 182 QRSD: 110 QT: 374 QTc: 426 Epsom: P: 73 KS: 182 QRS: 54 T: 75 INTERPRETIVE STATEMENTS: Normal sinus rhythm Incomplete right bundle branch block Borderline ECG Compared to ECG 02/05/2018 17:28:55 Incomplete right bundle-branch block now present Ventricular premature complex(es) no longer present Electronically Signed On 12-13-20 16:56:19 CDT by Fran Cooper
== END 2020-12-12 11:53 | disposition home or self-care (01) ==
LOC: ER 17:31 → ERHOLD 12-12 02:15
PROVIDERS: ADMIT Internal Medicine; ATTEND Internal Medicine
DX: R07.81 Pleurodynia (principal); I25.10 Atherosclerotic heart disease of native coronary artery without angina pectoris; I25.2 Old myocardial infarction; R06.00 Dyspnea, unspecified; K21.9 Gastro-esophageal reflux disease without esophagitis; N40.0 Benign prostatic hyperplasia without lower urinary tract symptoms; Z95.1 Presence of aortocoronary bypass graft; Z95.5 Presence of coronary angioplasty implant and graft; Z79.82 Long term (current) use of aspirin; Z20.822 Contact with and (suspected) exposure to COVID-19
CPT/HCPCS: 93005; 85025; 80048; 36415; 83735; 85610; 85379; 80076; 85652; 84484 ×4; 83880; 86140; 71275; 71045; 99285; U0003; Q9967; G0378 ×2

== ENCOUNTER 2023-11-20 14:51 | Observation (INO) | payer OTHER ==
[2023-11-20 15:57] LABS: Absolute Lymphocytes (CBC) 1.1 K/uL (0.7-4.9); Absolute Monocytes 0.4 K/uL (0.1-1.3); Absolute Neutrophil 4.4 K/uL (1.8-8.0); Basophils % 0.7 % (0-1.3); Eosinophils % 0.5 % (0-4.4); Hematocrit 41.4 % (39.6-49.0); Hemoglobin 13.9 g/dL (13.6-17.9); Lymphocytes % 18.3 % (15.3-44.8); MCH 32.1 pg (27.0-35.0); MCHC 33.6 g/dL (32.0-36.0); MCV 95.5 fL (80-100); MPV 8.3 fL (7.6-11.3); Neutrophils % 74.5 % (41.7-73.7); Platelets 121 thou/uL (152-406); RBC Red Blood Cell Count 4.33 M/uL (4.33-5.43); Red Cell Distribution Width 12.7 % (12.1-15.2)
[2023-11-20 15:58] LABS: PT Prothrombin Time 12.1 SECONDS (9.4-12.5); Protime INR 1.08
[2023-11-20 16:18] LABS: Albumin 3.9 g/dL (3.4-5.0); Albumin/Globulin Ratio 1.3 (1.1-1.8); Anion Gap 4.9 mEq/L (5.0-15.0); Bilirubin Direct 0.2 mg/dL (0-0.2); Bilirubin Indirect, Calculated 0.4 mg/dL (0.2-0.8); Bilirubin Total 0.6 mg/dL (0.2-1.0); Magnesium 2.3 mg/dL (1.6-2.4); Potassium 3.9 mEq/L (3.5-5.1); Protein, Total 6.9 g/dL (6.4-8.2); Troponin High Sensitivity 15.6 pg/mL (<58.9)
[2023-11-20] MEDS ORDERED: ALPRAZOLAM 0.25 MG TABLET ONE (16:21)
--- NOTE | 2023-11-20 16:31 | ER ---
Nurse's Notes [facility] Name: Xu Fulton Age: 88 yrs Sex: Male : 1935 Arrival Date: 11/20/2023 Time: 14:51 Bed 13 Private MD: Diagnosis: Chest pain on breathing Presentation: 11/19 14:59 Chief complaint: Patient states: had an angioplasty 2 months ago, now having difficulty dd2 getting a full breath in. Coronavirus screen: At this time, the client does not indicate any symptoms associated with coronavirus-19. Ebola Screen: No symptoms or risks identified at this time. Initial Sepsis Screen: Does the patient meet any 2 criteria? No. Patient's initial sepsis screen is negative. Does the patient have a suspected source of infection? No. Patient's initial sepsis screen is negative. Risk Assessment: Do you want to hurt yourself or someone else? Patient reports no desire to harm self or others. Onset of symptoms is unknown. 14:59 Method Of Arrival: Ambulatory dd2 14:59 Acuity: TEO 3 dd2 Triage Assessment: 15:01 General: Appears in no apparent distress. General: Behavior is calm, cooperative, dd2 appropriate for age. Pain: Denies pain. Respiratory: Reports shortness of breath Onset: The symptoms/episode began/occurred suddenly, the patient has mild shortness of breath. Historical: - Allergies: 15:01 No Known Allergies; dd2 - PMHx: 15:01 BPH; GERD; Myocardial infarction; dd2 - PSHx: 15:01 heart bypass; dd2 - Immunization history:: Adult Immunizations unknown. - Infectious Disease History:: Denies. - Social history:: Smoking status: Patient denies any tobacco usage or history of. Screenin:37 [facility] ED Fall Risk Assessment (Adult) History of falling in the last 3 months, db including since admission No falls in past 3 months (0 pts) Confusion or Disorientation No (0 pts) Intoxicated or Sedated No (0 pts) Impaired Gait No (0 pts) Mobility Assist Device Used No (0 pt) Altered Elimination No (0 pt) Score/Fall Risk Level 0 - 2 = Low Risk Oriented to surroundings, Maintained a safe environment. Abuse screen: Denies threats or abuse. Denies injuries from another. Nutritional screening: No deficits noted. Tuberculosis screening: No symptoms or risk factors identified. Assessment: 15:00 Reassessment: Patient appears in no apparent distress at this time. Patient and/or db family updated on plan of care and expected duration. Pain level reassessed. Patient is alert, oriented x 3, equal unlabored respirations, skin warm/dry/pink. General: Appears in no apparent distress. comfortable, Behavior is calm, cooperative. Neuro: Level of Consciousness is awake, alert, obeys commands, Oriented to person, place, time, situation. 16:15 Reassessment: Reassessment: Patient appears in no apparent distress at this time. db Patient and/or family updated on plan of care and expected duration. Pain level reassessed. Patient is alert, oriented x 3, equal unlabored respirations, skin warm/dry/pink. PT REPORTS FEELING ANXIOUS. REQUESTS ANXIETY PILL. NOTIFIED PROVIER. 16:15 Cardiovascular: No deficits noted. Rhythm is sinus rhythm. Respiratory: Airway is db patent Respiratory effort is even, unlabored, Respiratory pattern is regular, symmetrical, Breath sounds are clear. 18:21 Reassessment: Patient appears in no apparent distress at this time. Patient and/or db family updated on plan of care and expected duration. Pain level reassessed. Patient is alert, oriented x 3, equal unlabored respirations, skin warm/dry/pink. Vital Signs: 14:59 BP 147 / 67; Pulse 77; Resp 18; Temp 97.8; Pulse Ox 99% ; Weight 62.6 kg; Height 5 ft. dd2 8 in. ; 15:30 BP 150 / 55; Pulse 72; Resp 16; Pulse Ox 97% on R/A; db 16:00 BP 152 / 70; Pulse 64; Resp 18; Pulse Ox 100% on 2 lpm NC; db 17:00 BP 144 / 74; Pulse 64; Resp 16; Pulse Ox 100% on R/A; db 18:00 BP 138 / 59; Pulse 62; Resp 17; Temp 97.8; Pulse Ox 100% on NC; db 14:59 Body Mass Index 20.98 (62.60 kg, 172.72 cm) dd2 ED Course: 14:56 Patient arrived in ED. ra3 15:00 Jesusita Montes MD is Attending Physician. sp3 15:01 Triage completed. dd2 15:01 Arm band placed on right wrist. Patient placed in an exam room, on a stretcher, on dd2 retort load expediter, on pulse oximetry, Patient notified of wait time. 15:06 Inserted saline lock: 20 gauge in right antecubital area, using aseptic technique. jr12 Blood collected. Flushed with 10 mL NS. 15:20 EKG done, by ED staff, reviewed by Jesusita Montes MD. jr12 15:42 Fidelia Amaro, RN is Primary Nurse. db 15:50 XRAY Chest (1 view) In Process Unspecified. EDSC 16:30 Kati Anderson MD is Hospitalizing Provider. sp3 18:20 Provided Education on: ADMISSION. db 18:21 Patient has correct armband on for positive identification. Bed in low position. Call db light in reach. Side rails up X 1. Client placed on continuous cardiac and pulse oximetry monitoring. NIBP monitoring applied. line camera operator on. Pulse ox on. NIBP on. Warm blanket given. Pillow given. 18:21 No provider procedures requiring assistance completed. Patient admitted, IV remains in db place. Administered Medications: 16:24 Drug: ALPRAZolam PO Tablet 0.25 mg PO once Route: PO; db 16:52 Follow up: Response: No adverse reaction db Medication: 16:37 VIS not applicable for this client. db Outcome: 16:30 Decision to Hospitalize by Provider. sp3 18:21 Admitted to ER Hold. Please see [email or web address] for further documentation. db 18:21 Condition: stable 18:21 Instructed on the need for admit, 19:14 Patient left the ED. db Signatures: Dispatcher [employer] EDSC Jesusita Montes MD MD sp3 Fidelia Amaro, RN RN Kathrine Lopez jr12 Yulia Miramontes ra3 DAVID GU RN RN dd2 Corrections: (The following items were deleted from the chart) 16:06 16:04 Inserted saline lock: 20 gauge in right antecubital area, using aseptic jr12 technique. Blood collected. Flushed with 10 mL NS jr12 16:36 16:35 Reassessment: db db
--- NOTE | 2023-11-20 16:31 | EDPHYS ---
Physician Documentation [facility] Name: Xu Fulton Age: 88 yrs Sex: Male : 1935 Arrival Date: 11/20/2023 Time: 14:51 Bed 13 Private MD: ED Physician Jesusita Montes HPI: 11/19 15:29 This 88 yrs old Male presents to ER via Ambulatory with complaints of Breathing sp3 Difficulty - [id number]. 15:29 88-year-old male with a history of myocardial infarction, peripheral vascular disease, sp3 status post CABG in 1997, BPH, GERD now presents to the ED with chief complaint shortness of breath, chest pain for the last 2 weeks. Patient states that over the last 48 hours it has gotten worse coupled with dyspnea on exertion. Patient denies any fever, cough, back pain, abdominal pain, vomit, diarrhea, syncope, near syncope, prolonged immobilization, travel history, known sick contacts, or any other signs or symptoms on ROS at this time. Patient sees Dr. Ruano his PCP. Patient had angiogram performed approximately [address] Webber which demonstrated coronary vascular disease without need for intervention.. 16:29 Troponin is negative. I have discussed the case with Dr. Ruano who is out of town who sp3 states he has 100% RCA occlusion. Given his pathology and prior CABG in the , we will place him in observation and consult cardiology. Patient will be admitted to the hospitalist service.. Historical: - Allergies: 15:01 No Known Allergies; dd2 - PMHx: 15:01 BPH; GERD; Myocardial infarction; dd2 - PSHx: 15:01 heart bypass; dd2 - Immunization history:: Adult Immunizations unknown. - Infectious Disease History:: Denies. - Social history:: Smoking status: Patient denies any tobacco usage or history of. ROS: 15:30 Constitutional: Negative for fever, chills, and weight loss, Eyes: Negative for injury, sp3 pain, redness, and discharge, ENT: Negative for injury, pain, and discharge, Neck: Negative for injury, pain, and swelling, Abdomen/GI: Negative for abdominal pain, nausea, vomiting, diarrhea, and constipation, Back: Negative for injury and pain, MS/Extremity: Negative for injury and deformity, Skin: Negative for injury, rash, and discoloration, Neuro: Negative for headache, weakness, numbness, tingling, and seizure, Psych: Negative for depression, anxiety, suicide ideation, homicidal ideation, and hallucinations, Allergy/Immunology: Negative for hives, rash, and allergies, Endocrine: Negative for neck swelling, polydipsia, polyuria, polyphagia, and marked weight changes, Hematologic/Lymphatic: Negative for swollen nodes, abnormal bleeding, and unusual bruising, 15:30 All other systems are negative, Exam: 15:30 Constitutional: This is a well developed, well nourished patient who is awake, alert, sp3 and in no acute distress. Head/Face: Normocephalic, atraumatic. Eyes: Pupils equal round and reactive to light, extra-ocular motions intact. Lids and lashes normal. Conjunctiva and sclera are non-icteric and not injected. Cornea within normal limits. Periorbital areas with no swelling, redness, or edema. Neck: Trachea midline, no thyromegaly or masses palpated, and no cervical lymphadenopathy. Supple, full range of motion without nuchal rigidity, or vertebral point tenderness. No Meningismus. Chest/axilla: Normal chest wall appearance and motion. Nontender with no deformity. No lesions are appreciated. Cardiovascular: Regular rate and rhythm with a normal S1 and S2. No gallops, murmurs, or rubs. Normal PMI, no JVD. No pulse deficits. Respiratory: Lungs have equal breath sounds bilaterally, clear to auscultation and percussion. No rales, rhonchi or wheezes noted. No increased work of breathing, no retractions or nasal flaring. Abdomen/GI: Soft, non-tender, with normal bowel sounds. No distension or tympany. No guarding or rebound. No evidence of tenderness throughout. Back: No spinal tenderness. No costovertebral tenderness. Full range of motion. Skin: Warm, dry with normal turgor. Normal color with no rashes, no lesions, and no evidence of cellulitis. MS/ Extremity: Pulses equal, no cyanosis. Neurovascular intact. Full, normal range of motion. Neuro: Awake and alert, GCS 15, oriented to person, place, time, and situation. Cranial nerves II-XII grossly intact. Motor strength 5/5 in all extremities. Sensory grossly intact. Cerebellar exam normal. Normal gait. Psych: Awake, alert, with orientation to person, place and time. Behavior, mood, and affect are within normal limits. 15:55 ECG was reviewed by the Attending Physician. EKG demonstrates normal sinus rhythm at 64 sp3 bpm with normal intervals, normal QRS, normal axis, nonspecific diffuse ST/changes without evidence of acute ischemia. Vital Signs: 14:59 BP 147 / 67; Pulse 77; Resp 18; Temp 97.8; Pulse Ox 99% ; Weight 62.6 kg; Height 5 ft. dd2 8 in. ; 15:30 BP 150 / 55; Pulse 72; Resp 16; Pulse Ox 97% on R/A; db 16:00 BP 152 / 70; Pulse 64; Resp 18; Pulse Ox 100% on 2 lpm NC; db 17:00 BP 144 / 74; Pulse 64; Resp 16; Pulse Ox 100% on R/A; db 18:00 BP 138 / 59; Pulse 62; Resp 17; Temp 97.8; Pulse Ox 100% on NC; db 14:59 Body Mass Index 20.98 (62.60 kg, 172.72 cm) dd2 MDM: 15:06 Patient medically screened. sp3 15:31 Data reviewed: vital signs, nurses notes, lab test result(s), EKG, radiologic studies. sp3 ED course: 88-year-old male with PMH above with extensive coronary artery disease status post CABG now presents for recurrent chest pain and shortness of breath. Differential diagnosis includes acute coronary syndrome, angina, pneumonia, CHF, among others. Clinically I am not highly suspicious for infectious etiology including pneumonia, sepsis or shock. Vascular pathology also low on the list. Workup will include EKG, chest x-ray, laboratory values including troponin with general observation and supportive care. Disposition pending workup and patient course with probable admission at least 23-hour observation under PCP with cardiology consultation.. 11/19 15:06 Order name: Basic Metabolic Panel; Complete Time: 16:19 sp3 11/19 15:06 Order name: CBC with Diff; Complete Time: 16:19 sp3 11/19 15:06 Order name: LFT's; Complete Time: 16:19 sp3 11/19 15:06 Order name: Magnesium; Complete Time: 16:19 sp3 11/19 15:06 Order name: NT PRO-BNP; Complete Time: 16:19 sp3 11/19 15:06 Order name: PT-INR; Complete Time: 16:19 sp3 11/19 15:06 Order name: Troponin HS; Complete Time: 16:19 sp3 11/19 17:56 Order name: Basic Metabolic Panel EDMS 11/19 17:56 Order name: Basic Metabolic Panel EDMS 11/19 17:56 Order name: CBC with Automated Diff EDMS 11/19 17:56 Order name: CBC with Automated Diff EDMS 11/19 17:56 Order name: Troponin High Sensitivity EDMS 11/19 17:56 Order name: Troponin High Sensitivity EDMS 11/19 17:56 Order name: Troponin High Sensitivity EDMS 11/19 15:06 Order name: XRAY Chest (1 view); Complete Time: 16:51 sp3 11/19 17:56 Order name: CONS Physician Consult EDMS 11/19 17:56 Order name: EKG Electrocardiogram EDMS 11/19 17:56 Order name: EKG Electrocardiogram EDMS 11/19 17:56 Order name: EKG Electrocardiogram EDMS 11/19 17:56 Order name: EKG Electrocardiogram EDMS 11/19 15:06 Order name: Cardiac monitoring; Complete Time: 15:50 sp3 11/19 15:06 Order name: EKG - Nurse/Tech; Complete Time: 15:50 sp3 11/19 15:06 Order name: IV Saline Lock; Complete Time: 15:50 sp3 11/19 15:06 Order name: Labs collected and sent; Complete Time: 15:49 sp3 11/19 15:06 Order name: O2 Per Protocol; Complete Time: 15:49 sp3 11/19 15:06 Order name: O2 Sat Monitoring; Complete Time: 15:49 sp3 Administered Medications: 16:24 Drug: ALPRAZolam PO Tablet 0.25 mg PO once Route: PO; db 16:52 Follow up: Response: No adverse reaction db Disposition Summary: 11/20/23 16:30 Hospitalization Ordered Notes: Hospitalization Status: Observation sp3 Provider: Kati Anderson sp3 Location: Telemetry/MedSurg (observation) sp3 Condition: Stable sp3 Problem: an acute exacerbation sp3 Symptoms: have worsened sp3 Bed/Room Type: Standard sp3 Room Assignment: [facility](11/20/23 18:02) [facility] Diagnosis - Chest pain on breathing sp3 Forms: - Medication Reconciliation Form sp3 - SBAR form sp3 - Leadership Thank You Letter sp3 Signatures: Dispatcher [employer] Abebe York RN RN ja1 Jesusita Montes MD MD sp3 Fidelia Amaro RN RN db DAVIS, DIANA, RN RN dd2 Corrections: (The following items were deleted from the chart) 18:02 16:30 sp3 ja1
--- NOTE | 2023-11-20 16:36 | P.SSS ---
Patient History Date of Service: 11/21/23 Primary Care Provider: Dr. Ruano Reason for admission: CP/SOB x 2 weeks History of Present Illness: Mr. Fulton is an 88-year-old gentleman with a past medical history of hypertension, hyperlipidemia, moderate to severe CAD status post CABG in 1997, insomnia, and muscular weakness. He presented to the emergency department with a 2-week history of shortness of breath. He states he does not really have chest pain but he does get some pressure when he is short of breath. He has had no medication changes, no activity changes, no changes in his sleep pattern. He does state he has environmental allergies and has some postnasal drainage that makes it difficult for him to feel like his respirations are adequate. The emergency department contacted his PCP, Dr. Ruano, and he states that the patient had a recent cardiac cath which showed moderate to severe CAD, including 100% occlusion of the RCA, with the recommendation from cardiology for medical management. His EKG, labs including troponin, and chest x-ray are all normal. We will admit him for observation for serial enzymes and consultation with cardiology. 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 - Social History Alcohol use: No CD- Drugs: No Caffeine use: Yes <Laly Gomez - Last Filed: 11/21/23 11:51> Date of Service: 11/21/23 <Kati Anderson - Last Filed: 11/21/23 12:10> Allergies No Known Allergies Allergy (Verified 11/20/23 20:19) Home Medications: Cetirizine HCl [Zyrtec*] 10 mg PO DAILY PRN #30 tab 11/21/23 Famotidine [Pepcid*] 20 mg PO BID #60 tab 11/21/23 Finasteride 5 mg PO DAILY 11/21/23 Gabapentin 100 mg PO TID 11/21/23 Isosorbide Mononitrate [Isosorbide Mononitrate ER] 30 mg PO DAILY #30 tab 11/21/23 Magnesium l-Lactate [Mag-Tab Sr] 84 mg PO Q12H 11/21/23 Mirtazapine 7.5 mg PO BEDTIME 11/21/23 Pantoprazole Sodium 40 mg PO BID 11/21/23 Rosuvastatin Calcium 10 mg PO BEDTIME 11/21/23 Trazodone [Desyrel*] 50 mg PO BEDTIME 11/21/23 pyRIDostigmine bromide [Pyridostigmine [place]] 30 mg PO Q8H 11/21/23 Review of Systems 10-point ROS is otherwise unremarkable Respiratory: Shortness of Breath, SOB with Excertion, As per HPI Cardiovascular: Chest Pain, As per HPI <Laly Gomez - Last Filed: 11/21/23 11:51> Physical Examination - Physical Exam General: Alert, In no apparent distress, Oriented x3, Cooperative HEENT: Atraumatic, Normocephalic Neck: Supple Respiratory: Clear to auscultation bilaterally, Normal air movement Cardiovascular: Normal pulses, Regular rate/rhythm, Normal S1 S2 Capillary refill: <2 Seconds Gastrointestinal: Normal bowel sounds Musculoskeletal: No clubbing Integumentary: No rashes, Other (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) Neurological: Normal speech, Normal tone, Normal affect Lymphatics: No axilla or inguinal lymphadenopathy External genitalia: Deferred Rectal: Deferred - Studies Laboratory Data (last 24 hrs) 11/20/23 11/20/23 11/20/23 15:42 15:42 15:42 WBC 6.00 Hgb 13.9 Hct 41.4 Plt Count 121 L PT 12.1 INR 1.08 Sodium 139 Potassium 3.9 BUN 28 H Creatinine 1.40 H Glucose 102 Magnesium 2.3 Total Bilirubin 0.6 AST 24 ALT 35 Alkaline Phosphatase 66 <Laly Gomez - Last Filed: 11/21/23 11:51> - Studies Laboratory Data (last 24 hrs) 11/20/23 11/20/23 11/20/23 15:42 15:42 15:42 WBC 6.00 Hgb 13.9 Hct 41.4 Plt Count 121 L PT 12.1 INR 1.08 Sodium 139 Potassium 3.9 BUN 28 H Creatinine 1.40 H Glucose 102 Magnesium 2.3 Total Bilirubin 0.6 AST 24 ALT 35 Alkaline Phosphatase 66 <Kati Anderson Levar - Last Filed: 11/21/23 12:10> Treatment Summary: Chest pain/Shortness of breath Recent cardiac cath, 100% RCA occlusion, recommended medical management Consult Cardiology tele, no overnight events O2 per protocol, did well overnight, feeling a little better this am. O2 room air assessment 98% Mildly hypertensive in ED Aspirin EC 81mg po daily Imdur 30mg po daily Mild ANUSHA gentle hydration trend creatinine HLD continue Rosuvastatin Insomnia Continue home medications Postnasal drip Zyrtec Pepcid Muscle weakness Pt takes Pyridostigmine BR 30mg q8h denies MG but states at his last admit with epiglottitis it was started and he still takes it. VTE/GI prophylaxis aspirin, TEDs/pepcid - Disposition Patient Discharge Instructions: Mr. Fulton did well over the course of his hospitalization. He did not qualify for home oxygen use. He states he is feeling better this morning. Serial troponins and telemetry unremarkable overnight. We will discharge him to follow-up with his PCP and cardiology. Zyrtec 10 mg p.o. daily and Pepcid 20 mg p.o. twice daily recommended. Continue home medications. Return to the emergency department for worsening signs and symptoms, problems, immediate concerns. Diet: AHA Activity: Ad yoon <Laly Gomez - Last Filed: 11/21/23 11:51> Physician Review Additional Text: Pt seen and examined. I agree with the note by the GARBAGE MAN. Pt is an 88 yo male with past medical history of BPH, GERD, PVD, and CAD s/p [place] who presents with chest pain and SOB that started 2 weeks ago and progressively worsened. The symptoms progressively worsened over the past 2 days and pt came to the ER for evaluation. Of note, pt had angiogram 2 months ago and it showed 100% RCA occlusion. On admission, lab studies show wbc 6, Hgb 13.9, K 3.9, Cr 1.4, BNP 454, and troponin 15.6. At bedside, pt is in NAD. A/P: Chest pain: Troponin is 15.6. Will r/o ACS. Pt recently had angiogram that showed 100% stenosis of RCA. Will continue home med. Dyspnea: Will continue 2L BNC and prn duoneb. Hx of CAD: continue home med. BPH: Flomax ANUSHA: cr is 0.93 <- 1.4. Will continue IVF, avoid nephrotxins and monitor renal function. GERD: protonix DVT ppx: SCD Code: full <Kati Anderson - Last Filed: 11/21/23 12:10> - Disposition Disposition: ROUTINE DISCHARGE Condition: GOOD
--- NOTE | 2023-11-20 16:48 | RAD REPORT ---
EXAM DESCRIPTION: RADChest Single View11/20/2023 3:49 pm CLINICAL HISTORY: DYSPNEA COMPARISON: Chest Pa And Lat (2 Views) dated 07/17/2023; Chest Pa And Lat (2 Views) dated 12/08/2022; Ch est Single View dated 02/09/2022; Abdomen 1 View (KUB) dated 02/08/2022 TECHNIQUE: Portable AP view of the chest. FINDINGS: The lungs are clear. No pneumothorax or effusion. The cardiomediastinal contours are unch anged with sequelae of median sternotomy. IMPRESSION: No acute cardiopulmonary process.
[2023-11-20] MEDS ORDERED: ACETAMINOPHEN 500 MG TAB PO PRN (17:49)
[2023-11-20] MEDS ORDERED: GABAPENTIN 100 MG CAP PO PRN (18:00)
[2023-11-20] MEDS: NA CHLORIDE 0.9% 1,000 ML IV SCH (20:23)
[2023-11-20] MEDS: PYRIDOSTIGMINE 60 MG TABLET PO SCH (20:24)
[2023-11-20] MEDS: ISOSORBIDE MONO SR 30 MG TAB PO SCH (20:24)
[2023-11-20] MEDS: MIRTAZAPINE 15 MG TAB PO SCH (20:25)
[2023-11-20] MEDS: FAMOTIDINE 20 MG TAB PO SCH (20:26)
[2023-11-20] MEDS: ROSUVASTATIN 10 MG TAB PO SCH (20:26)
[2023-11-20] MEDS: TRAZODONE 50 MG TABLET PO SCH (20:26)
[2023-11-20] MEDS ORDERED: CETIRIZINE HCL 5 MG TABLET PO PRN (21:00)
[2023-11-20 22:03] VITALS: BMI 20.9
[2023-11-21 06:46] LABS: Absolute Eosinophils 0.1 K/uL (0-0.5); Absolute Lymphocytes (CBC) 1.3 K/uL (0.7-4.9); Absolute Monocytes 0.5 K/uL (0.1-1.3); Absolute Neutrophil 3.3 K/uL (1.8-8.0); Basophils % 0.7 % (0-1.3); Eosinophils % 2.1 % (0-4.4); Hematocrit 36.5 % (39.6-49.0); Hemoglobin 12.5 g/dL (13.6-17.9); Lymphocytes % 25.5 % (15.3-44.8); MCH 32.4 pg (27.0-35.0); MCHC 34.4 g/dL (32.0-36.0); MCV 94.4 fL (80-100); Monocytes % 8.8 % (3.3-12.3); Neutrophils % 62.9 % (41.7-73.7); Platelets 113 thou/uL (152-406); RBC Red Blood Cell Count 3.87 M/uL (4.33-5.43); Red Cell Distribution Width 12.7 % (12.1-15.2)
[2023-11-21] MEDS: ASPIRIN EC 81 MG TAB PO SCH (09:48)
[2023-11-21] MEDS: FINASTERIDE 5 MG TAB PO SCH (09:49)
[2023-11-21 10:11] VITALS: O2SAT 98
[2023-11-21 12:07] VITALS: BP 111/54; TEMP 98.1
[2023-11-21] MEDS ORDERED: PNEUMOCOCCAL VACCINE 0.5 ML IMVAC ONE (16:00)
--- NOTE | 2023-11-22 16:25 | EKG ---
Test Date: 2023-11-20 Test Time: 15:50:03 Ironworker: CARYN MEASUREMENT RESULTS: Intervals: Rate: 64 CT: 198 QRSD: 104 QT: 400 QTc: 412 [place]: P: 71 CT: 198 QRS: -18 T: 85 INTERPRETIVE STATEMENTS: Normal sinus rhythm Normal ECG Compared to ECG 09/11/2023 13:49:06 No significant changes Electronically Signed On 11-22-23 16:24:16 CDT by Michael Zuñiga
== END 2023-11-21 13:30 | disposition home or self-care (01) ==
LOC: ER 14:51 → 2ND 17:59
PROVIDERS: ADMIT Hospitalist; ATTEND Hospitalist
DX: R06.02 Shortness of breath (principal); R07.1 Chest pain on breathing; I10 Essential (primary) hypertension; I25.10 Atherosclerotic heart disease of native coronary artery without angina pectoris; I25.2 Old myocardial infarction; I73.9 Peripheral vascular disease, unspecified; E78.5 Hyperlipidemia, unspecified; G47.00 Insomnia, unspecified; M62.81 Muscle weakness (generalized); J30.89 Other allergic rhinitis; N17.9 Acute kidney failure, unspecified; K21.9 Gastro-esophageal reflux disease without esophagitis; N40.0 Benign prostatic hyperplasia without lower urinary tract symptoms; Z95.1 Presence of aortocoronary bypass graft; Z23 Encounter for immunization
CPT/HCPCS: 85025 ×2; 80048 ×2; 36415; 83735; 85610; 80076; 84484 ×3; 83880; 71045; 99285; J7030; 93005

== ENCOUNTER 2024-01-09 07:26 | Day surgery (SDC) | payer OTHER ==
[2024-01-07 15:43] LABS: Absolute Eosinophils 0.1 K/uL (0-0.5); Absolute Monocytes 0.3 K/uL (0.1-1.3); Absolute Neutrophil 3.9 K/uL (1.8-8.0); Basophils % 0.7 % (0-1.3); Eosinophils % 1.1 % (0-4.4); Hematocrit 40.2 % (39.6-49.0); Hemoglobin 13.7 g/dL (13.6-17.9); Lymphocytes % 19.4 % (15.3-44.8); MCH 32.3 pg (27.0-35.0); MCV 94.9 fL (80-100); MPV 8.4 fL (7.6-11.3); Monocytes % 5.7 % (3.3-12.3); Neutrophils % 73.1 % (41.7-73.7); Platelets 122 thou/uL (152-406); RBC Red Blood Cell Count 4.24 M/uL (4.33-5.43); Red Cell Distribution Width 13.7 % (12.1-15.2)
[2024-01-09] MEDS ORDERED: CEFAZOLIN SODIUM 1 GM/VIAL ONE (08:07)
[2024-01-09] MEDS ORDERED: Ringers Lactate 1,000 ML IV ONE (08:08)
[2024-01-09] MEDS ORDERED: LIDOCAINE 1% MPF 5 ML VIAL ONE (08:20)
[2024-01-09] MEDS ORDERED: propofoL 200 MG/20 ML VIAL IV ONE (08:20)
[2024-01-09] MEDS ORDERED: FENTANYL CITR 100 MCG/2 ML ONE (08:20)
[2024-01-09] MEDS ORDERED: ROCURONIUM 50 MG/5 ML VIAL IV ONE (08:20)
[2024-01-09] MEDS ORDERED: ONDANSETRON 4 MG/2 ML VIAL ONE (09:06)
--- NOTE | 2024-01-09 10:04 | P.BOP ---
Preoperative diagnosis: incarcerated tender right inguinal hernia Postoperative diagnosis: same Primary procedure: open repair of incarcerated right inguinal hernia wth mesh Estimated blood loss: <10cc Specimen: sac Findings: as above Anesthesia: General Complications: None Implants: large mesh plug and sheet Transferred to: Recovery Room Condition: Good
[2024-01-09] MEDS ORDERED: NEOSTIGMINE 1 MG/ML -10 ML VIAL ONE (10:06)
[2024-01-09] MEDS ORDERED: GLYCOPYRROLATE 0.2 MG/ML SYR ONE (10:07)
[2024-01-09] MEDS ORDERED: TAMSULOSIN 0.4 MG SR CAP ONE (11:45)
[2024-01-09] MEDS: TAMSULOSIN 0.4 MG SR CAP PO ONE (11:46)
[2024-01-09 11:57] VITALS: BP 119/65; TEMP 96.2; O2SAT 99
--- NOTE | 2024-01-09 12:23 | OP ---
Date of Procedure: 01/09/2024 Surgeon: Chirag Pascual MD Preoperative Diagnosis: Incarcerated tender right inguinal hernia. Postoperative Diagnosis: Incarcerated tender right inguinal hernia. Procedure: Open repair of incarcerated tender right inguinal hernia with mesh. Estimated Blood Loss: Less than 10 cc. Specimen: Hernia sac and content. Findings: Right inguinal hernia. Anesthesia: General plus local. Complications: None. Implant: A large mesh plug and sheath. Indication: This is a case of an 88-year-old patient who came to us with a tender incarcerated right inguinal hernia. The benefits, alternatives, and risks of open repair with mesh fully explained, wh ich include, but not limited to, infection, bleeding, damage to adjacent structures, anesthesia compl ication, recurrence, [place], and even . He also understands this may not relieve any symptoms. He might need more than one surgical intervention. He also explained the pros and cons of mesh placemen t. All the questions were answered to his satisfaction. He did agree with the use of the mesh. So, he signed a consent. Description Of Procedure: The patient was brought to the operating room, placed in supine position. Anesthesia was done without complication. A time-out was called. Abdomen and inguinal area were pr epped and draped in a sterile fashion. Local anesthesia was applied followed by sharp incision of th e skin on the right inguinal region. Incision was carried down until we opened the Samuel's and then found external oblique aponeurosis that was opened in direction of the fibers to connect to deep ing uinal ring. Ilioinguinal nerve, iliohypogastric nerve protected behind external oblique aponeurosis. Kristin placed around the spermatic cord. We opened the cremasteric fibers, noticed the hernia sac , opened, reduced the contents, looks viable intestines. Suture ligated the hernia sac. With Prolen e, then put a mesh plug in that region and secured in place with VersaTack. Lipoma of the cord was a lso ligated, making sure the spermatic cord structures were protected at all times. At that moment, I proceeded to put a mesh sheath in the floor of the canal securing that to the pubic tubercle, shelv ing edge of inguinal ligament and transversalis fascia and the tail looped around the spermatic cord without strangulation. No bleeding. At that moment, I proceeded then to bring the ilioinguinal nerv e and iliohypogastric nerve back into the inguinal canal, reconstructed the superficial inguinal ring and closed the external oblique aponeurosis making sure that nerves were not included. The Samuel f ascia was closed with 3-0 chromic and the skin was approximated with jill, this was after irrigati on and hemostasis obtained. Sponge counts and instrument counts correct. Patient tolerated the proc edure well. Patient was sent to Recovery in stable condition. CHERIE/LYNNETTE Voice ID: [id number] Report ID: [id number]
--- NOTE | 2024-01-09 12:29 | DS ---
Diagnosis: Incarcerated tender right inguinal hernia. Procedure: Open repair of incarcerated right inguinal hernia with mesh. Disposition: Home. Activity: As tolerated. No heavy lifting. Discharge Instructions: Follow up in my office in a week. Call for appointment at [phone]. Keep a jeffery dry for 48 hours, then may shower. Keep jill intact. Cold compress of the right inguinal reg ion for 24 hours. CHERIE/LYNNETTE Voice ID: [id number] Report ID: [id number]
== END 2024-01-09 12:05 | disposition home or self-care (01) ==
LOC: OR 07:26
PROVIDERS: ATTEND Surgery
PROC: 0YU50JZ Supplement Right Inguinal Region with Synthetic Substitute, Open Approach (ICD-10-PCS; principal; 2024-01-09 08:45)
DX: K40.30 Unilateral inguinal hernia, with obstruction, without gangrene, not specified as recurrent (principal)
CPT/HCPCS: 85025; 80048; 36415; 88302; 49507; J2704; J2710; J2001; J3010; J2405; J7120; J0690

== ENCOUNTER 2025-01-05 06:15 | Day surgery (SDC) | payer OTHER ==
[2025-01-01 14:55] LABS: PT Prothrombin Time 12.9 SECONDS (10-13.0); PTT, Activated Partial Thromb 34.2 SECONDS (27.2-37.4); Protime INR 1.15
[2025-01-01 15:00] LABS: Anion Gap 7.1 mEq/L (5.0-15.0); BUN Blood Urea Nitrogen 17.0 mg/dL (7-18); Glucose Level 128.0 mg/dL (74-106); Potassium 4.1 mEq/L (3.5-5.1)
[2025-01-01 15:09] LABS: Absolute Lymphocytes (CBC) 0.8 K/uL (0.7-4.9); Hematocrit 33.7 % (39.6-49.0); Hemoglobin 11.8 g/dL (13.6-17.9); MCH 35.7 pg (27.0-35.0); MCHC 35.0 g/dL (32.0-36.0); MCV 102.2 fL (80-100); MPV 7.8 fL (7.6-11.3); Nucleated RBC Absolute Count 0.0 (0-0); Nucleated Red Blood Cells % 0.0 % (0-0); RBC Red Blood Cell Count 3.30 M/uL (4.33-5.43); White Blood Count 4.80 thou/uL (4.3-10.9)
[2025-01-05] MEDS ORDERED: NITROGLYCERIN/D5W 50 MG/250 ML BTL IV ONE (06:21)
[2025-01-05] MEDS ORDERED: VERAPAMIL HCL 10 MG/4 ML VIAL IV ONE (06:21)
[2025-01-05] MEDS ORDERED: LIDOCAINE 1% 20 ML MDV ONE (06:21)
[2025-01-05] MEDS ORDERED: HEPA 1000U/500MLS 3,000 UNIT/1,500 ML BAG IV ONE (06:21)
[2025-01-05] MEDS ORDERED: HEPARIN 10,000 UNIT/10 ML VIAL IV ONE (06:21)
[2025-01-05] MEDS ORDERED: HEPARIN 5000 UNIT/ML 1 ML VIAL ONE (06:21)
[2025-01-05] MEDS ORDERED: NA CHLORIDE 0.9% 500 ML ONE (06:28)
[2025-01-05] MEDS ORDERED: ASPIRIN 81 MG CHEWABLE TABLET ONE (06:28)
[2025-01-05] MEDS ORDERED: MIDAZOLAM HCL 2 MG/2 ML INJ ONE (06:49)
[2025-01-05] MEDS ORDERED: FENTANYL CITR 100 MCG/2 ML ONE (06:49)
[2025-01-05 10:37] VITALS: BP 125/48; O2SAT 93
--- NOTE | 2025-01-05 13:59 | OP ---
Date of Procedure: 01/05/2025 Surgeon: NASREEN HIGGINS Procedure Performed: Selective coronary angiogram with bypass graft study. Indication: Chest pain with abnormal stress test. Access: Right common femoral artery 6-Welsh closed with 6-Welsh Mynx closure device. Complications: None. Bleeding: Less than 50 mL. Total Sedation Time: 45 minutes, used fentanyl and Versed. Description Of Procedure: After risks, benefits, and alternatives were explained, the patient agreed to procedure and signed informed consent. The patient was brought into cardiac catheterization [facility], prepped and draped in the usual sterile fashion. Then, I accessed right common femoral arter y using micropuncture kit, ultrasound guidance, and fluoroscopy, placed 6-Welsh [place] sheath and took 6-Welsh JL4 catheter over a J-wire into the aortic root, engaged left main, took standard views and then exchanged for 6-Welsh JR4 catheter across the aortic valve, measured the LVEDP. Pullback did not record any gradient and then engaged the RCA, took standard views and then engaged the BUTLER, took standard views, and then removed the catheter and the sheath, and 6-Welsh Mynx closure device w as used for closure with good hemostasis. Findings: 1. Left main is long and normal. 2. LAD; ostial STRETCHER LEVELER OPERATOR 100% occluded. 3. Left circumflex; it is large, codominant with mid 40% stenosis. OM branch is normal. 4. RCA; proximally STRETCHER LEVELER OPERATOR, 100% occluded. Bypass Graft Study: 1. Widely patent BUTLER to LAD and then the LAD becomes visible and gives collaterals to the PDA, to th e RCA. 2. LVEDP is normal at 7 mmHg. Conclusion: Severe galena coronary artery disease, widely patent BUTLER to LAD, and collaterals from t he LAD to RCA. Recommendation: Medical management. SR/MODL Voice ID: [id number] Report ID: [id number]
== END 2025-01-05 10:18 | disposition home health service (06) ==
LOC: CCL 06:15
PROVIDERS: ATTEND Internal Medicine
DX: I25.10 Atherosclerotic heart disease of native coronary artery without angina pectoris (principal); I25.82 Chronic total occlusion of coronary artery; I35.1 Nonrheumatic aortic (valve) insufficiency; I10 Essential (primary) hypertension; E78.2 Mixed hyperlipidemia; Z79.899 Other long term (current) drug therapy
CPT/HCPCS: 93005; 85025; 80048; 36415; 85610; 85730; 93459; 76937; C1893; Q9967; J2003; J2250; J3010; J1644; J7040; 99152; 99153